=== PATIENT | female | born 1950 | race African-American/Black ===

== ENCOUNTER 2020-09-28 10:19 | Outpatient (REF) | payer MEDICARE, SELFPAY ==
[2020-09-28 10:31] LABS: MANUAL DIFF FLAG NO
[2020-09-28 10:53] LABS: Basophils Percent Auto 0.5 % (0-2); Eosinophils Percent Auto 0.7 % (0-4); Hematocrit 36.5 % (37-47); Hemoglobin 11.4 g/dl (12.0-16.0); Imm Gran Abs Auto 0.01 X10*3/uL (0.00-0.03); Imm Gran Pct Auto 0.2 % (0.0-0.4); Lymphocytes Absolute Auto 1.7 X10*3/uL (1.2-4.9); Lymphocytes Percent Auto 40.3 % (20-40); Mean Corpuscular HGB Conc 31.2 g/dl (31.0-35.0); Mean Corpuscular Hemoglobin 27.9 pg (27.0-33.0); Mean Corpuscular Volume 89.2 fL (80-98); Mean Platelet Volume 10.6 fL (9.4-12.3); Monocytes Absolute Auto 0.5 X10*3/uL (0.1-1.2); Monocytes Percent Auto 11.8 % (2-11); Neutrophils Absolute Auto 1.9 X10*3/uL (2.0-8.3); Neutrophils Percent Auto 46.5 % (45-73); Platelet Count 291 X10*3/uL (160-400); Red Blood Count 4.09 X10*6/uL (4.20-5.50); Red Cell Distribution Width 14.8 % (11.0-16.0); White Blood Count 4.1 X10*3/uL (4.8-10.8)
[2020-09-28 10:57] LABS: Glucose Urine UA NEG (NEG); Leukocyte Esterase Urine NEG (NEG); Nitrite Urine NEG (NEG); Urine Blood NEG (NEG); Urine Ketones NEG (NEG); Urine Protein NEG (NEG-TRACE)
[2020-09-28 10:59] LABS: Appearance Urine CLEAR; Color Urine YELLOW
[2020-09-28 11:27] LABS: Alanine Aminotransferase 14 U/L (0-31); Albumin Level 4.1 g/dL (3.5-5.0); Alkaline Phosphatase 100 U/L (39-117); Anion Gap 13 (12-20); Aspartate Amino Transferase 22 U/L (5-31); Bilirubin Total 0.4 mg/dL (0.0-1.0); Blood Urea Nitrogen 22 mg/dL (9-16); Calcium 9.4 mg/dL (8.4-10.2); Carbon Dioxide 31 mmol/L (22-29); Chloride 103 mmol/L (96-108); Cholesterol 209 mg/dL; Estimated Glomerular Filt Rate > 60; Glucose Fasting 88 mg/dL (60-99); HDL Cholesterol 66 mg/dL; LDL Cholesterol Calculated 131 mg/dl; Sodium 143 mmol/L (135-145); Total Protein 7.2 g/dL (6.5-8.0); Triglycerides 62 mg/dL
[2020-09-28 11:49] LABS: Vitamin D 25-OH Total 40.7 ng/mL (>30)
== END 2020-09-28 10:20 | disposition home or self-care (01) ==
LOC: HO.LNP 10:19
PROVIDERS: Visit Provider Internal Medicine
DX: Z00.00 Encounter for general adult medical examination without abnormal findings (principal); E55.9 Vitamin D deficiency, unspecified; I10 Essential (primary) hypertension
CPT/HCPCS: 80053; 80061; 81003; 82306; 85025

== ENCOUNTER 2021-10-08 10:52 | Outpatient (REF) | payer MEDICARE, SELFPAY ==
[2021-10-08 10:57] LABS: MANUAL DIFF FLAG NO
[2021-10-08 11:07] LABS: Basophils Percent Auto 0.6 % (0-2); Eosinophils Percent Auto 0.4 % (0-4); Hemoglobin 11.7 g/dl (12.0-16.0); Imm Gran Abs Auto 0.01 X10*3/uL (0.00-0.03); Imm Gran Pct Auto 0.2 % (0.0-0.4); Lymphocytes Absolute Auto 1.8 X10*3/uL (1.2-4.9); Lymphocytes Percent Auto 37.4 % (20-40); Mean Corpuscular HGB Conc 30.8 g/dl (31.0-35.0); Mean Corpuscular Hemoglobin 28.4 pg (27.0-33.0); Mean Corpuscular Volume 92.2 fL (80.0-98.0); Mean Platelet Volume 11.2 fL (9.4-12.3); Monocytes Absolute Auto 0.6 X10*3/uL (0.1-1.2); Neutrophils Absolute Auto 2.3 x10*3/uL (2.0-8.3); Neutrophils Percent Auto 48.4 % (45-73); Platelet Count 246 X10*3/uL (160-400); Red Blood Count 4.12 X10*6/uL (4.20-5.50); Red Cell Distribution Width 12.9 % (11.0-16.0); White Blood Count 4.7 X10*3/uL (4.8-10.8)
[2021-10-08 11:14] LABS: Appearance Urine HAZY; Color Urine YELLOW; Glucose Urine UA NEG (NEG); Leukocyte Esterase Urine NEG (NEG); Nitrite Urine NEG (NEG); Specific Gravity - Urine 1.025 (1.005-1.025); Urine Blood TRACE (NEG); Urine Ketones NEG (NEG); Urine Protein NEG (NEG-TRACE)
[2021-10-08 11:20] LABS: Alanine Aminotransferase 15 U/L (0-31); Albumin Level 4.1 g/dL (3.5-5.0); Alkaline Phosphatase 92 U/L (39-117); Anion Gap 13 (12-20); Aspartate Amino Transferase 22 U/L (5-31); Bilirubin Total 0.3 mg/dL (0.0-1.0); Blood Urea Nitrogen 24 mg/dL (9-16); Calcium 9.7 mg/dL (8.4-10.2); Carbon Dioxide 31 mmol/L (22-29); Chloride 104 mmol/L (96-108); Cholesterol 202 mg/dL; Estimated Glomerular Filt Rate > 60; Glucose Fasting 92 mg/dL (60-99); HDL Cholesterol 63 mg/dL; LDL Cholesterol Calculated 122 mg/dl; Potassium 4.2 mmol/L (3.3-5.1); Sodium 144 mmol/L (135-145); Total Protein 7.5 g/dL (6.5-8.0); Triglycerides 87 mg/dL
[2021-10-08 11:27] LABS: Bacteria Urine 1+ /LPF; Mucus Urine 1+ /LPF; RBC Urine 0-2 /HPF (0); Squamous Epithelial Cell Urine 1+ /LPF
== END 2021-10-08 10:53 | disposition home or self-care (01) ==
LOC: HO.LNP 10:52
PROVIDERS: Visit Provider Internal Medicine
DX: Z00.00 Encounter for general adult medical examination without abnormal findings (principal); E55.9 Vitamin D deficiency, unspecified; I10 Essential (primary) hypertension
CPT/HCPCS: 80053; 80061; 81001; 82306; 85025

== ENCOUNTER 2021-12-25 15:39 | Outpatient (REF) | payer MEDICARE, SELFPAY ==
[2021-12-25 16:18] LABS: Blood Urea Nitrogen 23 mg/dL (9-16); Estimated Glomerular Filt Rate 55
== END 2021-12-25 15:40 | disposition home or self-care (01) ==
LOC: HO.LNP 15:39
PROVIDERS: Visit Provider Internal Medicine
DX: R60.0 Localized edema (principal)
CPT/HCPCS: 82565; 84520

== ENCOUNTER → 2022-03-07 11:23 | Outpatient (BNVA) | payer MEDICARE, SELFPAY | PROVIDERS: PCP Internal Medicine; Visit Provider Internal Medicine | DX: R19.4 Change in bowel habit (principal); D64.9 Anemia, unspecified | CPT/HCPCS: 99202 ==

== ENCOUNTER 2022-04-15 09:12 | Outpatient (REF) | payer MEDICARE, SELFPAY ==
[2022-04-15 10:05] LABS: Hematocrit 35.9 % (37.0-47.0); Hemoglobin 11.4 g/dl (12.0-16.0); Mean Corpuscular HGB Conc 31.8 g/dl (31.0-35.0); Mean Corpuscular Hemoglobin 28.3 pg (27.0-33.0); Mean Corpuscular Volume 89.1 fL (80.0-98.0); Mean Platelet Volume 10.1 fL (9.4-12.3); Platelet Count 245 X10*3/uL (160-400); Red Blood Count 4.03 X10*6/uL (4.20-5.50); Red Cell Distribution Width 13.9 % (11.0-16.0); White Blood Count 4.4 X10*3/uL (4.8-10.8)
[2022-04-15 10:35] LABS: Iron 39 mcg/dL (30-160); Percent Iron Saturation 14 % (15-50); Total Iron Binding Capacity 279 mcg/dL (228-428); Unsaturated Iron Binding 240 ug/dL
[2022-04-15 10:59] LABS: Ferritin 47 ng/mL (10-250)
[2022-04-16 15:06] LABS: Immunoglobulin A 242 mg/dL (70-320)
[2022-04-17 05:27] LABS: Transglutaminase IgA <1.0 U/mL
== END 2022-04-15 09:13 | disposition home or self-care (01) ==
LOC: HO.LAB 09:12
PROVIDERS: PCP Internal Medicine; Visit Provider Internal Medicine
DX: D64.9 Anemia, unspecified (principal)
CPT/HCPCS: 36415; 82728; 82784; 83540; 85027; 86364

== ENCOUNTER 2022-04-16 10:04 | Outpatient (REF) | payer MEDICARE, SELFPAY | END 2022-04-16 10:05 | disposition home or self-care (01) | LOC: HO.CT 10:04 | PROVIDERS: PCP Internal Medicine; Visit Provider Internal Medicine | DX: Z13.89 Encounter for screening for other disorder (principal) ==

== ENCOUNTER 2022-04-18 11:16 | Day surgery (SDC) | payer MEDICARE, SELFPAY ==
[2022-04-12 12:13] VITALS: BMI 39.9
--- NOTE | 2022-04-17 12:56 | HO.ANESPROP2 ---
Documented by User: Kasandra Ashley NP 04/17/22 12:58 HPI - Anesthesia Eval Consult details Narrative: 71yo F for Colonoscopy *Multiple allergies* PMFSH Active Problems Active Problems: All Active Problems (Updated 04/12/22 @ 12:19 by Yue Ochoa, RN) Change in bowel habit (Acute) Anemia (Acute) Past Medical History Medical History Arthritis Constipation Hidradenitis suppurativa HTN (hypertension) Hx of cardiac murmur Low back pain Lumbar disc disease Personal history of COVID-19 Stasis dermatitis Family History Family History Mother Diabetes Son Diabetes Brother Diabetes Surgical History Surgical History H/O removal of cyst History of esophagogastroduodenoscopy (EGD) History of excision of pilonidal cyst History of hip replacement Hx of bilateral breast reduction surgery Hx of section Hx of colonoscopy Social History Social History (Updated 04/12/22 @ 12:20 by Yue Ochoa, MAIDA) Household Members: Family Household Members Other:: son Are you a primary care administrative tech to a significant other at home: No Do you presently have visiting nurse or other home services: No Alcohol intake: never Patient Tobacco Use Status: Never used Tobacco Meds Allergies Allergy/AdvReac Type Severity Reaction Status Date / Time aloe [Aloe] Allergy Severe swelling,redness, Verified 04/12/22 12:13 itching, rash latex [Latex] Allergy Severe swelling, Verified 04/12/22 12:13 redness, itching, rash Penicillins Allergy Severe Anaphylaxis Verified 04/12/22 12:13 clindamycin [CLINDAMYCIN] Allergy Intermediate HIVES, Verified 04/12/22 12:22 SWELLING, ITCHY hydrocodone [HYDROCODONE] Allergy Intermediate HIVES, Verified 04/12/22 12:22 SWELLING, ITCHING peanut [Peanut] Allergy Intermediate hives, Verified 04/12/22 12:13 itching,rash Sulfa (Sulfonamide Allergy Intermediate hives,swell Verified 04/12/22 12:22 Antibiotics) ing,itching sulfamethoxazole Allergy Intermediate HIVES, Verified 04/12/22 12:22 [From BACTRIM] SWELLING, ITCHING trimethoprim [From BACTRIM] Allergy Intermediate HIVES, Verified 04/12/22 12:22 SWELLING, ITCHING diltiazem [From Cardizem] Allergy Unknown Verified 04/18/22 12:17 pantoprazole Allergy Unknown Verified 04/18/22 12:15 tramadol Allergy Weakness Verified 04/18/22 12:17 cortisone Allergy Severe Anaphylaxis Uncoded 04/12/22 12:13 tyehsa, wool, rosalba Allergy Intermediate rash, Uncoded 04/12/22 12:13 itching blood presure meds except Allergy Unknown swelling Uncoded 01/07/13 00:00 Diov Home Medications Medication Instructions Recorded Confirmed Last Taken Type doxycycline hyclate 100 mg capsule 100 mg PO BID 03/07/22 04/12/22 Unknown History losartan 100 1 tab PO DAILY 03/07/22 04/12/22 04/18/22 08:30 History mg-hydrochlorothiazide 25 mg tablet Exam Exam Date and Time: April 17, 2022 1256 Height,Weight and Vital Signs: Height 5 ft 2 in Weight 98.883 kg Pertinent Lab Results Pertinent Lab Results: Laboratory Tests 10/08/21 12/25/21 04/15/22 07:15 14:15 09:41 WBC 4.4 L Hgb 11.4 L Hct 35.9 L Plt Count 245 Sodium 144 Potassium 4.2 Chloride 104 Carbon Dioxide 31 H BUN 23 H Creatinine 0.99 Assessment and Plan Assessment Anesthesia Assessment: Chart Reviewed Documented by User: Alberto Boss MD 04/18/22 17:53 [facility] Past Medical History Medical History Arthritis Constipation Hidradenitis suppurativa HTN (hypertension) Hx of cardiac murmur Low back pain Lumbar disc disease Personal history of COVID-19 Stasis dermatitis Family History Family History Mother Diabetes Son Diabetes Brother Diabetes Family history of problems with anesthesia: No Surgical History Surgical History H/O removal of cyst History of esophagogastroduodenoscopy (EGD) History of excision of pilonidal cyst History of hip replacement Hx of bilateral breast reduction surgery Hx of section Hx of colonoscopy History of Problems with Anesthesia: No Social History Social History (Updated 04/12/22 @ 12:20 by Yue Ochoa, MAIDA) Household Members: Family Household Members Other:: son Are you a primary care administrative tech to a significant other at home: No Do you presently have visiting nurse or other home services: No Alcohol intake: never Patient Tobacco Use Status: Never used Tobacco Meds Allergies Allergy/AdvReac Type Severity Reaction Status Date / Time aloe [Aloe] Allergy Severe swelling,redness, Verified 04/12/22 12:13 itching, rash latex [Latex] Allergy Severe swelling, Verified 04/12/22 12:13 redness, itching, rash Penicillins Allergy Severe Anaphylaxis Verified 04/12/22 12:13 clindamycin [CLINDAMYCIN] Allergy Intermediate HIVES, Verified 04/12/22 12:22 SWELLING, ITCHY hydrocodone [HYDROCODONE] Allergy Intermediate HIVES, Verified 04/12/22 12:22 SWELLING, ITCHING peanut [Peanut] Allergy Intermediate hives, Verified 04/12/22 12:13 itching,rash Sulfa (Sulfonamide Allergy Intermediate hives,swell Verified 04/12/22 12:22 Antibiotics) ing,itching sulfamethoxazole Allergy Intermediate HIVES, Verified 04/12/22 12:22 [From BACTRIM] SWELLING, ITCHING trimethoprim [From BACTRIM] Allergy Intermediate HIVES, Verified 04/12/22 12:22 SWELLING, ITCHING diltiazem [From Cardizem] Allergy Unknown Verified 04/18/22 12:17 pantoprazole Allergy Unknown Verified 04/18/22 12:15 tramadol Allergy Weakness Verified 04/18/22 12:17 cortisone Allergy Severe Anaphylaxis Uncoded 04/12/22 12:13 tyesha, wool, rosalba Allergy Intermediate rash, Uncoded 04/12/22 12:13 itching blood presure meds except Allergy Unknown swelling Uncoded 01/07/13 00:00 Diov Home Medications Medication Instructions Recorded Confirmed Last Taken Type doxycycline hyclate 100 mg capsule 100 mg PO BID 03/07/22 04/12/22 Unknown History losartan 100 1 tab PO DAILY 03/07/22 04/12/22 04/18/22 08:30 History mg-hydrochlorothiazide 25 mg tablet Exam Airway Mallampati Class: III TM Dist: >3cm Neck ROM: Full Loose/Missing/Broken Teeth: Yes (Poor dentition overall ) Heart: S1,S2 Lungs: b/l breath sounds Assessment and Plan Assessment Anesthesia Assessment: Anesthesia Plan Discussed Final Anesthetic Review Family History of Problems with Anesthesia: No History of Problems with Anesthesia: No NPO: Yes ASA Class: III Final Preanesthetic Review: Meds/Allgs Chart Reviewed, Consent Obtained/Reviewed and Anes Risks/Benef Reviewed Patient Risk: Intermediate Procedure Risk: Intermediate Anesthetic Plan Anesthetic Plan: MAC: Disposition: Standard PACU
[2022-04-18 12:36] VITALS: BP 150/64; PULSE 90; RESP 17; TEMP 36.8; O2SAT 98
[2022-04-18] MEDS: Lactated Ringers 1,000 ML 100 ML IVCONT (12:38)
--- NOTE | 2022-04-18 13:03 | MHC.SHP ---
Pre-Procedural Eval Section A Date of Service: 04/18/22 Section B Chief Complaint: anemia, change in bowel habits and hx of polyps Medical History: Significant History (H/O removal of cyst History of hip replacement Hx of bilateral breast reduction surgery Hx of section) Allergies: Allergies Allergy/AdvReac Type Severity Reaction Status Date / Time aloe [Aloe] Allergy Severe swelling,redness, Verified 04/12/22 12:13 itching, rash latex [Latex] Allergy Severe swelling, Verified 04/12/22 12:13 redness, itching, rash Penicillins Allergy Severe Anaphylaxis Verified 04/12/22 12:13 clindamycin [CLINDAMYCIN] Allergy Intermediate HIVES, Verified 04/12/22 12:22 SWELLING, ITCHY hydrocodone [HYDROCODONE] Allergy Intermediate HIVES, Verified 04/12/22 12:22 SWELLING, ITCHING peanut [Peanut] Allergy Intermediate hives, Verified 04/12/22 12:13 itching,rash Sulfa (Sulfonamide Allergy Intermediate hives,swell Verified 04/12/22 12:22 Antibiotics) ing,itching sulfamethoxazole Allergy Intermediate HIVES, Verified 04/12/22 12:22 [From BACTRIM] SWELLING, ITCHING trimethoprim [From BACTRIM] Allergy Intermediate HIVES, Verified 04/12/22 12:22 SWELLING, ITCHING diltiazem [From Cardizem] Allergy Unknown Verified 04/18/22 12:17 pantoprazole Allergy Unknown Verified 04/18/22 12:15 tramadol Allergy Weakness Verified 04/18/22 12:17 cortisone Allergy Severe Anaphylaxis Uncoded 04/12/22 12:13 tyesha, wool, rosalba Allergy Intermediate rash, Uncoded 04/12/22 12:13 itching blood presure meds except Allergy Unknown swelling Uncoded 01/07/13 00:00 Diov Review of Systems Review of Systems Comment: 10 point ROS negative Exam Exam Comment: Gen appear: No acute distress, well nourished HEENT: no icterus, no cervical lymphadenopathy Chest: No overt resp distress Abd: soft, nontender, nondistended Psych: Stable affect, answering questions appropriately Neuro: A/Ox3 noted to move all extremities spontaneously Ext: no peripheral edema Plan Diagnosis/Plan: Unchanged I have reviewed the history and physical and performed a pertinent physical examination on my patient. No changes have occurred unless specified.
--- NOTE | 2022-04-18 13:05 | P.OP_ITS ---
Operative Note Operative Note Date of Service: 04/18/22 Narrative: Procedure: Colonoscopy Indication: Personal history of polyps Anemia Endoscopist: Ros Costello MD Anesthesia Provider: Charo Castañeda CRNA Anesthesia type: MAC Instrument: Olympus [id number]-H190L Consent: Indication, risks vs benefits, and alternatives were discussed with the patient who gave written informed consent to proceed. EKG, pulse, pulse oximetry and blood pressure were monitored throughout the procedure. Please see anesthesia flowsheet. Procedure: The patient was brought to the procedure room and placed in the left lateral decubitus position. IV medications were administered by the anesthesia provider in attendance. A digital rectal exam was performed which was abnormal due to finding of hemorrhoids. The colonoscope was then inserted through the anus and advanced through the colon to the cecum at 75 cm. Mucosa was carefully examined under high definition white light as the instrument was slowly withdrawn in a retrograde panoramic fashion. Retroflexion was performed in rectum. The procedure was not difficult. There were no immediate obvious complications. The quality of the prep was BBPS: 3+3+3 = excellent Withdrawal time 12 minutes. Limitations: No limitations. Findings: Mucosa: Normal to cecum. Protruding lesions: * Medium external hemorrhoids without stigmata of recent bleeding. Excavated lesions: * Moderate-severe diverticulosis of whole colon. Impression: 1. Normal colon mucosa 2. Diverticulosis 3. External hemorrhoids Recommendations: - Repeat colonoscopy may be considered in 10 years if still in good health to continue CRC screening. - Changes in bowel habits likely due to diverticular burden. - Will refer to Hematology for non-iron deficiency anemia.
[2022-04-18 13:43] VITALS: BP 124/60; PULSE 91; RESP 16; TEMP 37.1; O2SAT 100
[2022-04-18 13:58] VITALS: BP 142/68; PULSE 90; RESP 16; O2SAT 98
[2022-04-18 14:13] VITALS: BP 142/69; PULSE 84; RESP 16; TEMP 37.1; O2SAT 98
== END 2022-04-18 14:52 | disposition home or self-care (01) ==
PROVIDERS: PCP Internal Medicine; Visit Provider Internal Medicine
PROC: 0DJD8ZZ Inspection of Lower Intestinal Tract, Via Natural or Artificial Opening Endoscopic (ICD-10-PCS; CPT 45378; principal; 2022-04-18 12:30)
DX: D64.9 Anemia, unspecified (principal); R19.4 Change in bowel habit; Z86.010 Personal history of colon polyps; K57.30 Diverticulosis of large intestine without perforation or abscess without bleeding; Z83.71 Family history of colonic polyps; K64.4 Residual hemorrhoidal skin tags; I10 Essential (primary) hypertension; E66.9 Obesity, unspecified; Z68.41 Body mass index [BMI] 40.0-44.9, adult; Z88.0 Allergy status to penicillin; Z79.899 Other long term (current) drug therapy; Z88.1 Allergy status to other antibiotic agents; Z88.2 Allergy status to sulfonamides; Z88.8 Allergy status to other drugs, medicaments and biological substances; Z91.040 Latex allergy status; Z98.890 Other specified postprocedural states
CPT/HCPCS: 45378

== ENCOUNTER 2022-04-26 08:19 | Outpatient (REF) | payer MEDICARE, SELFPAY ==
--- NOTE | ~2022-04-26 | CT_ITS ---
EXAMINATION: CT ABDOMEN AND PELVIS WITH CONTRAST CLINICAL INFORMATION: Change in bowel habits. COMPARISON: None TECHNIQUE: Multidetector volumetric images were obtained from the superior aspect of the liver through the pubic symphysis following administration 85 mL of Omnipaque 350 intravenous contrast. Sagittal and coronal reformatted images were obtained on the technologist's workstation. Oral contrast: No This CT examination was performed using dose optimization techniques as appropriate, variously including the following: *Automated exposure control *Adjustment of mA and/or kV according to patient size (this includes techniques or standardized protocols for targeted exams where dose is matched to indication/reason for exam; i.e. extremities or head) *Use of iterative reconstruction technique DLP: 678 mGy-cm FINDINGS: LUNG BASES: There is left lower lobe atelectasis. LIVER, GALLBLADDER, AND BILIARY TREE: The liver is slightly enlarged in size measuring 19 cm. It has normal shape, contour and attenuation. There is a 1.2 cm hypodensity in the left hepatic lobe, probable cyst or hemangioma. There are punctate 1 mm hypodensities in the right hepatic lobe close to the diaphragm. The gallbladder is unremarkable with no evidence of radiopaque gallstones, gallbladder wall thickening, or obvious pericholecystic inflammatory changes. PANCREAS: Unremarkable. SPLEEN: Unremarkable. ADRENAL GLANDS: Unremarkable. KIDNEYS AND URETERS: The kidneys are normal in size, shape, and attenuation. No hydronephrosis, hydroureter, or calculi are seen. No perinephric stranding. BLADDER: Unremarkable. GASTROINTESTINAL TRACT: There is oral contrast opacifying the colon without any obstruction. There are scattered diverticula and stool seen throughout the colon with a focal area of mural thickening involving the sigmoid colon but no pericolic fat stranding. Findings are suspicious for an underlying lesion. The lack of acute pain eliminates typical diverticulitis. ABDOMINAL WALL: There are surgical chidi at the umbilicus, likely from previous hernia repair or intervention. LYMPH NODES: Normal. VASCULAR: Unremarkable. PELVIC VISCERA: The uterus is midline. No adnexal mass or fluid is seen. OSSEOUS STRUCTURES: There is moderate ventral spondylosis throughout the lumbar spine. No aggressive lytic or sclerotic process is seen. There are bilateral hip prostheses in satisfactory alignment. There are moderate enthesophytes along the anterior superior iliac spine and myositis ossificans. CT/CT abdomen pelvis w IV con IMPRESSION: Colonic diverticulosis without diverticulitis. There is a focal area of mural thickening involving the sigmoid colon but no pericolic fat stranding. Findings are suspicious for an underlying lesion. The lack of acute pain eliminates typical diverticulitis. Fleischner guidelines were followed.
[2022-04-26] MEDS: iohexoL 350 MG/ML 100 ML INFUS..BTL IV (10:56)
[2022-04-26] MEDS: Barium Sulfate Oral (Berry) 450 ML ORAL.SUSP 900 ML PO (10:57)
[2022-04-29 10:21] LABS: Creatinine POC 0.7 mg/dL (0.5-1.4); GFR POC > 60
== END 2022-04-26 08:20 | disposition home or self-care (01) ==
LOC: HO.CT 08:19
PROVIDERS: Visit Provider Internal Medicine
DX: R19.4 Change in bowel habit (principal)
CPT/HCPCS: 74177; 82565; Q9967

== ENCOUNTER → 2022-05-21 07:53 | Outpatient (BNVA) | payer MEDICARE, SELFPAY | PROVIDERS: PCP Internal Medicine; Visit Provider Internal Medicine | DX: D64.9 Anemia, unspecified (principal); R19.4 Change in bowel habit | CPT/HCPCS: 99212 ==

== ENCOUNTER 2022-12-20 11:22 | Outpatient (REF) | payer MEDICARE, SELFPAY ==
[2022-12-20 11:49] LABS: Basophils Percent Auto 0.6 % (0-2); Eosinophils Percent Auto 0.6 % (0-4); Hemoglobin 11.1 g/dl (12.0-16.0); Imm Gran Abs Auto 0.01 X10*3/uL (0.00-0.03); Imm Gran Pct Auto 0.2 % (0.0-0.4); Lymphocytes Absolute Auto 1.7 X10*3/uL (1.2-4.9); Lymphocytes Percent Auto 34.3 % (20-40); MANUAL DIFF FLAG NO; Mean Corpuscular Hemoglobin 27.3 pg (27.0-33.0); Mean Corpuscular Volume 90.9 fL (80.0-98.0); Mean Platelet Volume 10.8 fL (9.4-12.3); Monocytes Absolute Auto 0.6 X10*3/uL (0.1-1.2); Monocytes Percent Auto 11.5 % (2-11); Neutrophils Absolute Auto 2.6 x10*3/uL (2.0-8.3); Neutrophils Percent Auto 52.8 % (45-73); Platelet Count 287 X10*3/uL (160-400); Red Blood Count 4.07 X10*6/uL (4.20-5.50); Red Cell Distribution Width 13.9 % (11.0-16.0)
[2022-12-20 11:56] LABS: Appearance Urine Hazy; Color Urine Yellow; Glucose Urine UA Negative (Negative); Leukocyte Esterase Urine Negative (Negative); Nitrite Urine Negative (Negative); PH 5.5 (5.0-9.0); Specific Gravity - Urine 1.025 (1.005-1.025); UMIC TRIGGER UACC YES; Urine Blood Trace (Negative); Urine Ketones Negative (Negative); Urine Protein Negative (Neg-Trace)
[2022-12-20 12:06] LABS: Anion Gap 12 (12-20)
[2022-12-20 12:11] LABS: Alanine Aminotransferase 12 U/L (0-31); Albumin Level 4.1 g/dL (3.5-5.0); Alkaline Phosphatase 95 U/L (39-117); Aspartate Amino Transferase 18 U/L (5-31); Bilirubin Total 0.5 mg/dL (0.0-1.0); Blood Urea Nitrogen 17 mg/dL (9-16); Carbon Dioxide 30 mmol/L (22-29); Chloride 104 mmol/L (96-108); Cholesterol 199 mg/dL; Estimated Glomerular Filt Rate > 60; HDL Cholesterol 62 mg/dL; LDL Cholesterol Calculated 119 mg/dl; Potassium 3.8 mmol/L (3.3-5.1); Sodium 142 mmol/L (135-145); Total Protein 7.9 g/dL (6.5-8.0); Triglycerides 92 mg/dL
[2022-12-20 12:31] LABS: Vitamin D 25-OH Total 33.6 ng/mL (>30)
[2022-12-20 12:33] LABS: Glucose Fasting 86 mg/dL (60-99)
[2022-12-20 14:23] LABS: Bacteria Urine None Seen (None Seen); Hyaline Casts Urine 0-2 /LPF (0-2); UACC Culture Trigger YES
== END 2022-12-20 11:23 | disposition home or self-care (01) ==
LOC: HO.LNP 11:22
PROVIDERS: Visit Provider Internal Medicine
DX: Z00.00 Encounter for general adult medical examination without abnormal findings (principal); I10 Essential (primary) hypertension; E55.9 Vitamin D deficiency, unspecified; R82.90 Unspecified abnormal findings in urine
CPT/HCPCS: 80053; 80061; 81001; 82306; 85025; 87086

== ENCOUNTER 2022-12-31 10:53 | Outpatient (REF) | payer MEDICARE, SELFPAY ==
[2022-12-31 11:09] LABS: Appearance Urine Clear; Color Urine Yellow; Glucose Urine UA Negative (Negative); Leukocyte Esterase Urine Trace (Negative); Nitrite Urine Negative (Negative); PH 5.5 (5.0-9.0); UMIC TRIGGER UACC YES; Urine Blood Negative (Negative); Urine Ketones Negative (Negative); Urine Protein Negative (Neg-Trace)
[2022-12-31 11:30] LABS: Bacteria Urine None Seen (None Seen); Hyaline Casts Urine 0-2 /LPF (0-2); WBC Urine 0-5 /HPF (0-5)
== END 2022-12-31 10:54 | disposition home or self-care (01) ==
LOC: HO.LNP 10:53
PROVIDERS: Visit Provider Internal Medicine
DX: R31.9 Hematuria, unspecified (principal); I10 Essential (primary) hypertension
CPT/HCPCS: 81001

== ENCOUNTER 2023-07-31 11:12 | Outpatient (REF) | payer MEDICARE, MEDICAID, SELFPAY ==
--- NOTE | ~2023-07-31 | XR_ITS ---
EXAMINATION: XR FINGER, RIGHT CLINICAL INFORMATION: Closed displaced fracture. COMPARISON: None available. TECHNIQUE: 4 of the right small finger. FINDINGS: Examination demonstrates mild to moderate osteoarthritis involving all of the interphalangeal joints and MCP joints as well as the first carpal-metacarpal joint. Regarding the fifth digit in particular, degenerative changes are present as well. The fifth DIP joint is held in mild flexion on all views. No acute fracture or dislocation is seen. No lytic or sclerotic bony lesion is identified. XR/XR finger RT min 2V IMPRESSION: Findings as above.
== END 2023-07-31 11:13 | disposition home or self-care (01) ==
LOC: HO.XRAY 11:12
PROVIDERS: PCP Internal Medicine; Visit Provider Internal Medicine
DX: S62.616D Displaced fracture of proximal phalanx of right little finger, subsequent encounter for fracture with routine healing (principal)
CPT/HCPCS: 73140

== ENCOUNTER 2023-08-14 11:05 | Outpatient (REF) | payer MEDICARE, MEDICAID, SELFPAY ==
--- NOTE | ~2023-08-14 | US_ITS ---
EXAMINATION: US THYROID CLINICAL INFORMATION: Nontoxic single thyroid nodule. COMPARISON: None available. TECHNIQUE: Linear transducer grayscale and color Doppler examination with attention to the region of the thyroid. FINDINGS: SIZE: Measurements of the thyroid lobes and nodules are given in sagittal, anteroposterior and transverse dimensions respectively. Right Thyroid Lobe: 5.4 x 2.1 x 2.1 cm, volume 12.1 mL. Parenchyma: The gland echotexture is mildly heterogeneous. Thyroid vascularity is normal. Left Thyroid Lobe: 5.1 x 2.0 x 2.3 cm, volume 12.4 mL. Parenchyma: The gland echotexture is mildly heterogeneous. Thyroid vascularity is normal. Isthmus: 0.4 cm in maximum AP dimension. Estimated total number of nodules greater than or equal to 1 cm: 2. Armored Car Driver nodules are described as follows: 1. Location: Right upper pole. Size: 0.4 x 0.2 x 0.4 cm, volume 0.016 mL. Nodule characteristics: Composition: Solid (2). Echogenicity: Isoechoic (1). Shape: Not taller than wide (0). Margins: Ill-defined (0). Echogenic Foci: None (0). ACR TI-RADS total points: 3 ACR TI-RADS category: 3 2. Location: Right upper pole. Size: 0.5 x 0.3 x 0.5 cm, volume 0.033 mL. Nodule characteristics: Composition: Cystic(0). ACR TI-RADS total points: 0 ACR TI-RADS category: 1 3. Location: Right mid/lower pole. Size: 1.5 x 1.5 x 1.4 cm, volume 1.7 mL. Nodule characteristics: Composition: Solid (2). Echogenicity: Isoechoic (1). Shape: Taller than wide (3). Margins: Ill-defined (0). Echogenic Foci: None (0). ACR TI-RADS total points: 6 ACR TI-RADS category: 4 4. Location: Right lower pole. Size: 0.6 x 0.4 x 0.5 cm, volume 0.061 mL. Nodule characteristics: Composition: Solid (2). Echogenicity: Isoechoic (1). Shape: Not taller than wide (0). Margins: Smooth (0). Echogenic Foci: None (0). ACR TI-RADS total points: 3 ACR TI-RADS category: 3 5. Location: Left mid pole. Size: 1.0 x 0.6 x 0.8 cm, volume 0.24 mL. Nodule characteristics: Composition: Solid (2). Echogenicity: Isoechoic (1). Shape: Not taller than wide (0). Margins: Smooth (0). Echogenic Foci: None (0). ACR TI-RADS total points: 3 ACR TI-RADS category: 3 NODES: No lymphadenopathy is seen in the tissue surrounding the thyroid gland. US/US thyroid IMPRESSION: A 1.5 cm right mid lower TR 4 thyroid nodule meets criteria for biopsy. Fine-needle aspiration recommended. This study was presented today August 18, 2023 for interpretation. PSA staff will provide results to referring provider at this time. ACR TI-RADS RECOMMENDATION REFERENCE: Ultrasound-guided fine-needle aspiration, followup ultrasound, no further follow up. * TR1 (0 point) and TR2 (2 points): No FNA or follow up. * TR3 (3 points): FNA if more than or equal to 2.5 cm in maximum dimension, followup ultrasound in 1, 3 and 5 years if 1.5 to 2.4 cm in maximum dimension. * TR4 (4-6 points): FNA if more than or equal to 1.5 cm in maximum dimension, followup ultrasound in 1, 2, 3 and 5 years if 1 to 1.4 cm in maximum dimension. * TR5 (more than or equal to 7 points): FNA if more than or equal to 1 cm in maximum dimension, followup ultrasound every year for 5 years if 0.5 to 0.9 cm in maximum dimension. * TR3, TR4 or TR5 nodules that are below the size threshold for followup receive no follow up.
== END 2023-08-14 11:06 | disposition home or self-care (01) ==
LOC: HO.US 11:05
PROVIDERS: PCP Internal Medicine; Visit Provider Internal Medicine
DX: E04.1 Nontoxic single thyroid nodule (principal)
CPT/HCPCS: 76536

== ENCOUNTER 2023-09-22 12:49 | Outpatient (REF) | payer MEDICARE, MEDICAID, SELFPAY ==
--- NOTE | ~2023-09-22 | US_ITS ---
Ultrasound-guided thyroid nodule fine needle aspiration Indication: Right lobe thyroid nodule Procedure: Informed consent was obtained from the patient prior to the procedure. During this process, the procedure and potential alternatives were explained, along with the intended outcome and benefits. The risks of the procedure, as well as the risks of not doing the procedure, were discussed. The patient was given the opportunity to ask questions regarding the procedure and appeared competent to make medical decisions. A signed consent form which documents this discussion was placed in the medical record. A timeout was performed in the room. The patient was placed in a supine position with the neck extended. The right side of the neck and chest was prepped and draped in routine sterile fashion. 1% lidocaine was used as anesthetic. Under real-time ultrasound guidance, a 25-gauge needle was placed into the nodule and aspiration was performed. A total of 3 aspirations were performed. The specimens were placed in CytoLyt and and the Affirma bottle. Postprocedure images showed no hematoma. A Band-Aid was applied to the access site. The patient tolerated the procedure well with no immediate complications. Permanent ultrasound images were archived to the procedure. US/US guided fine needle asp Impression: Right thyroid nodule fine-needle aspiration This procedure was performed by Nahid Maynard PA-C, and directly supervised by Dr. Brown
[2023-09-22] MEDS: Lidocaine HCl 1 % 20 ML VIAL 5 ML SUBCUT (14:21)
== END 2023-09-22 12:50 | disposition home or self-care (01) ==
LOC: HO.US 12:49
PROVIDERS: PCP Internal Medicine; Visit Provider Internal Medicine
DX: E04.1 Nontoxic single thyroid nodule (principal)
CPT/HCPCS: 10005; 88173; 88305

== ENCOUNTER → 2023-09-22 12:53 | Outpatient (BNV) | payer MEDICARE, MEDICAID, SELFPAY | PROVIDERS: PCP Internal Medicine; Visit Provider Physician Assistant Surgical | DX: E04.1 Nontoxic single thyroid nodule (principal) | CPT/HCPCS: 10005 ==

== ENCOUNTER 2023-12-22 10:30 | Outpatient (REF) | payer MEDICARE, MEDICAID, SELFPAY ==
[2023-12-22 10:35] LABS: MANUAL DIFF FLAG NO
[2023-12-22 10:58] LABS: Basophils Percent Auto 0.7 % (0-2); Eosinophils Percent Auto 0.7 % (0-4); Hematocrit 36.4 % (37.0-47.0); Hemoglobin 11.4 g/dl (12.0-16.0); Imm Gran Abs Auto 0.01 X10*3/uL (0.00-0.03); Imm Gran Pct Auto 0.2 % (0.0-0.4); Lymphocytes Absolute Auto 1.5 X10*3/uL (1.2-4.9); Lymphocytes Percent Auto 35.1 % (20-40); Mean Corpuscular HGB Conc 31.3 g/dl (31.0-35.0); Mean Corpuscular Hemoglobin 28.4 pg (27.0-33.0); Mean Corpuscular Volume 90.5 fL (80.0-98.0); Mean Platelet Volume 10.9 fL (9.4-12.3); Monocytes Absolute Auto 0.5 X10*3/uL (0.1-1.2); Monocytes Percent Auto 12.1 % (2-11); Neutrophils Absolute Auto 2.1 x10*3/uL (2.0-8.3); Neutrophils Percent Auto 51.2 % (45-73); Platelet Count 152 X10*3/uL (160-400); Red Blood Count 4.02 X10*6/uL (4.20-5.50); Red Cell Distribution Width 13.8 % (11.0-16.0); White Blood Count 4.1 X10*3/uL (4.8-10.8)
[2023-12-22 10:59] LABS: Appearance Urine Clear; Color Urine Yellow; Glucose Urine UA Negative (Negative); Leukocyte Esterase Urine Trace (Negative); Nitrite Urine Negative (Negative); Specific Gravity - Urine 1.015 (1.005-1.025); UMIC TRIGGER UACC YES; Urine Blood Negative (Negative); Urine Ketones Negative (Negative); Urine Protein Negative (Neg-Trace)
[2023-12-22 11:09] LABS: Bacteria Urine None Seen (None Seen); Hyaline Casts Urine 0-2 /LPF (0-2); RBC Urine 0-2 /HPF (0-2); Squamous Epithelial Cell Urine 0-2 /HPF (0-2); WBC Urine 0-5 /HPF (0-5)
[2023-12-22 11:17] LABS: Alanine Aminotransferase 11 U/L (0-31); Albumin Level 4.1 g/dL (3.5-5.0); Alkaline Phosphatase 90 U/L (39-117); Anion Gap 14 (12-20); Aspartate Amino Transferase 21 U/L (5-31); Bilirubin Total 0.6 mg/dL (0.0-1.0); Blood Urea Nitrogen 19 mg/dL (9-16); Calcium 9.5 mg/dL (8.4-10.2); Carbon Dioxide 29 mmol/L (22-29); Chloride 105 mmol/L (96-108); Cholesterol 194 mg/dL (<200); Estimated Glomerular Filt Rate > 60; Glucose Fasting 84 mg/dL (60-99); HDL Cholesterol 70 mg/dL (>40); Iron 52 mcg/dL (30-160); LDL Cholesterol Calculated 111 mg/dL (<100); Percent Iron Saturation 22 % (15-50); Potassium 4.1 mmol/L (3.3-5.1); Sodium 144 mmol/L (135-145); Total Iron Binding Capacity 238 mcg/dL (228-428); Total Protein 7.8 g/dL (6.5-8.0); Triglycerides 66 mg/dL (<150); Unsaturated Iron Binding 186 ug/dL
[2023-12-22 11:33] LABS: Vitamin D 25-OH Total 28.9 ng/mL (>30)
== END 2023-12-22 10:31 | disposition home or self-care (01) ==
LOC: HO.LNP 10:30
PROVIDERS: Visit Provider Internal Medicine
DX: Z00.00 Encounter for general adult medical examination without abnormal findings (principal); I10 Essential (primary) hypertension; E55.9 Vitamin D deficiency, unspecified
CPT/HCPCS: 80053; 80061; 81001; 82306; 83540; 85025

== ENCOUNTER 2024-01-27 10:44 | Outpatient (REF) | payer MEDICARE, MEDICAID, SELFPAY ==
[2024-01-27 10:50] LABS: MANUAL DIFF FLAG NO
[2024-01-27 11:05] LABS: Basophils Percent Auto 0.8 % (0-2); Eosinophils Percent Auto 0.8 % (0-4); Hematocrit 37.6 % (37.0-47.0); Hemoglobin 11.8 g/dl (12.0-16.0); Imm Gran Abs Auto 0.01 X10*3/uL (0.00-0.03); Imm Gran Pct Auto 0.3 % (0.0-0.4); Lymphocytes Absolute Auto 1.5 X10*3/uL (1.2-4.9); Lymphocytes Percent Auto 38.4 % (20-40); Mean Corpuscular HGB Conc 31.4 g/dl (31.0-35.0); Mean Corpuscular Hemoglobin 28.3 pg (27.0-33.0); Mean Corpuscular Volume 90.2 fL (80.0-98.0); Mean Platelet Volume 10.7 fL (9.4-12.3); Monocytes Absolute Auto 0.5 X10*3/uL (0.1-1.2); Neutrophils Absolute Auto 1.9 x10*3/uL (2.0-8.3); Neutrophils Percent Auto 47.7 % (45-73); Platelet Count 178 X10*3/uL (160-400); Red Blood Count 4.17 X10*6/uL (4.20-5.50); Red Cell Distribution Width 13.5 % (11.0-16.0); White Blood Count 3.9 X10*3/uL (4.8-10.8)
== END 2024-01-27 10:45 | disposition home or self-care (01) ==
LOC: HO.LNP 10:44
PROVIDERS: Visit Provider Internal Medicine
DX: D69.6 Thrombocytopenia, unspecified (principal)
CPT/HCPCS: 85025

== ENCOUNTER 2024-02-23 09:59 | Outpatient (REF) | payer MEDICARE, MEDICAID, SELFPAY ==
--- NOTE | ~2024-02-23 | MM_ITS ---
EXAMINATION: MM SCREENING DIGITAL BREAST TOMOSYNTHESIS, BILATERAL CLINICAL INFORMATION: Screening. Asymptomatic. COMPARISON: Mammography: Comparison is made with available priors TECHNIQUE: Digital breast mammography with tomosynthesis is performed in both the craniocaudal and mediolateral oblique views along with computer-aided detection (CAD). FINDINGS: There are scattered areas of fibroglandular density (ACR BI-RADS breast composition Category b). Bilateral focal asymmetries are stable dating back to 2011. There are no significant masses, abnormal calcifications, or other abnormalities. MM/MM tomosynthesis screening BI IMPRESSION: No mammographic evidence of malignancy. ASSESSMENT: BI-RADS BI-RADS 2 - Benign Findings RECOMMENDATION: Routine annual mammography screening. 1 year F/U This examination should not preclude the clinical evaluation of a suspicious palpable abnormality. This patient's information was entered into a reminder system with a target due date for their next mammogram. Electronically signed by: Serenity Garza DO 03/04/2024 01:43 PM EDT
== END 2024-02-23 10:00 | disposition home or self-care (01) ==
LOC: HO.MAMMO 09:59
PROVIDERS: PCP Internal Medicine; Visit Provider Internal Medicine
DX: Z12.31 Encounter for screening mammogram for malignant neoplasm of breast (principal)
CPT/HCPCS: 77063; 77067

== ENCOUNTER → 2024-02-23 10:30 | Outpatient (BNV) | payer MEDICARE, MEDICAID, SELFPAY | PROVIDERS: PCP Internal Medicine; Visit Provider Internal Medicine | DX: Z12.31 Encounter for screening mammogram for malignant neoplasm of breast (principal) | CPT/HCPCS: 77063; 77067 ==

== ENCOUNTER 2024-12-23 10:40 | Outpatient (REF) | payer MEDICARE, MEDICAID, SELFPAY ==
[2024-12-23 10:44] LABS: MANUAL DIFF FLAG NO
[2024-12-23 11:14] LABS: Hematocrit 37.6 % (37.0-47.0); Hemoglobin 11.9 g/dl (12.0-16.0); Imm Gran Abs Auto 0.01 X10*3/uL (0.00-0.03); Imm Gran Pct Auto 0.2 % (0.0-0.4); Lymphocytes Absolute Auto 1.5 X10*3/uL (1.2-4.9); Mean Corpuscular HGB Conc 31.6 g/dl (31.0-35.0); Mean Corpuscular Hemoglobin 28.5 pg (27.0-33.0); Mean Corpuscular Volume 90.2 fL (80.0-98.0); NRBC Abs Auto 0.000 X10*3/uL (0.0-0.012); NRBC Pct Auto 0.0 /100WBC (0.0-0.2); Platelet Count 208 X10*3/uL (160-400); Red Blood Count 4.17 X10*6/uL (4.20-5.50); White Blood Count 4.3 X10*3/uL (4.8-10.8)
[2024-12-23 11:15] LABS: Appearance Urine Clear; Glucose Urine UA Negative (Negative); PH 7.5 (5.0-9.0); Specific Gravity - Urine 1.010 (1.005-1.025); UMIC TRIGGER UACC YES
--- OUTSIDE RECORDS SUMMARY | 2024-12-23 11:32 | XMS_ITS | Patient Health Record ---
Author Organization Yuriy Dorado MD Address [address] [place], [place] [id number] Care Team Providers Care Marine Biologist Name Role Phone Yuriy Dorado Primary Care Provider Allergies Allergen (clinical drug ingredient) Drug/Non Drug Allergy documented on EMR Reaction Allergy Type Onset Date Status morphine Morphine was not able to talk Drug Allergy Active tramadol Tramadol unconscious Drug Allergy Activ e cortisone Cortisone rash and itching Drug Allergy Active 12 Hour Nasal [place] Unknown Drug Allergy Active aloe (uncoded) rash and swelling Allergy Active Penicillin rash and trouble breatihing Drug Allergy Active Results Component Value Reference Range Notes Complete Blood Count Auto Di ff Reviewed date:01/27/2024 12:06:34 PM Interpretation: Performing Lab:, [address] [place] [phone] Notes/Report: White Blood Count 3.9 4.8-10.8 X10*3/uL Red Blood Count 4.17 4.20-5.50 X10*6/uL Hemoglobin 11.8 12.0-16.0 g/dl Hematocrit 37.6 37.0-47.0 % Mean Corpuscular Volume 90.2 80.0-98.0 fL Mean Corpuscular Hemoglobin 28.3 27.0-33.0 pg Mean Corpuscular HGB Conc 31.4 31.0-35.0 g/dl Red Cell Distribution Width 13.5 11.0-16.0 % Platelet Count 178 160-400 X10*3/uL Mean Platelet Volume 10.7 9.4-12.3 fL Neutrophils Percent Auto 47.7 45-73 % Imm Gran Pct Auto 0.3 0.0-0.4 % Lymphocytes Percent Auto 38.4 20-40 % Monocytes Percent Auto 12.0 2-11 % Eosinophils Percent Auto 0.8 0-4 % Basophils Percent Auto 0.8 0-2 % NRBC Pct Auto 0.0 0.0-0.2 /100WBC Neutrophils Absolute Auto 1.9 2.0-8.3 x10*3/u L Imm Gran Abs Auto 0.01 0.00-0.03 X10*3/uL Lymphocytes Absolute Auto 1.5 1.2-4.9 X10*3/u L Monocytes Absolute Auto 0.5 0.1-1.2 X10*3/uL Eosinophils Absolute Auto 0.0 0.0-0.4 X10*3/u L Basophils Absolute Auto 0.0 0.0-0.2 X10*3/uL NRBC Abs Auto 0.000 0.0-0.012 X10*3/uL MM tomosynthesis screening B I Reviewed date:03/04/2024 04:21:29 PM Interpretation: Performing Lab: Notes/Report: [address] [place] [address] Mammography Report Signed Patient: Saima Lucia MR#: [id number] : 1950 Acct:[id number] Age/Sex: 73 / F ADM Date: 02/23/24 Loc: HO.MAMMO Attending Dr: Yuriy Dorado MD Ordering Physician: Yuriy Dorado MD Results: 2Be nign Findings Date of Service: 02/23/24 Follow Up: 1 Year From Orig ina Mammogram Procedure(s): MM tomosynthesis screening BI Accession Number(s): [id number] cc: Yuriy Dorado MD EXAMINATION: MM SCREENING DIGITAL BREAST TOMOSYNTHESIS, BILATERAL CLINICAL INFORMATION: Screening. Asymptomatic. COMPARISON: Mammography: Comparison is made with available priors TECHNIQUE: Digital breast mammography with tomosynthesis is performed in both the craniocaudal and mediolateral oblique views along with computer-aided detection (CAD). FINDINGS: There are scattered areas of fibroglandular density (ACR BI-RADS breast composition Category b). Bilateral focal asymmetries are stable dating back to 2011. There are no significant masses, abnormal calcifications, or other abnormalities. MM/MM tomosynthesis screening BI IMPRESSION: No mammographic evidence of malignancy. ASSESSMENT: BI-RADS BI-RADS 2 - Benign Findings RECOMMENDATION: Routine annual mammography screening. 1 year F/U This examination should not preclude the clinical evaluation of a suspicious palpable abnormality. This patient's information was entered into a reminder system with a target due date for their next mammogram. Electronically signed by: Serenity Garza DO 03/04/2024 01:43 PM EDT RP Workstation: [email or web address] Dictated By: Serenity Garza DO Signed By: <Electronically signed by Serenity Garza DO in OV> 03/04/24 1343 DD/ 1005 TD/TT: 02/23/24 1040 Distribution Accounting Clerk: [facility] [address] [place] [address] Mammography Report Signed Patient: Tha Lucia MR#: [id number] : 1950 Acct:[id number] Age/Sex: 73 / F ADM Date: 02/23/24 Loc: HO.MAMMO Attending Dr: Yuriy Dorado MD Ordering Physician: Yuriy Dorado MD Results: 2Be nign Findings Date of Service: Follow Up: 1 Year From Orig ina Mammogram Procedure(s): MM sreekanth osynthesis screening BI Accession Number(s): [id number] cc: Yuriy Dorado MD EXAMINATION: MM SCREENING DIGITAL BREAST TOMOSYNTHESIS, BILATERAL CLINICAL INFORMATION: Screening. Asymptomatic. COMPARISON: Mammography: Compari son is made with available priors TECHNIQUE: Digital breast mammo graphy with tomosynthesis is performed in both the craniocaudal and med iolateral oblique views along with computer-aided detection (CAD). FINDINGS: There are scattered areas of fibroglandular density (ACR BI-RADS breast composition Category b). Bilateral focal asym metries are stable dating back to 2011. There are no signifi cant masses, abnormal calcifications, or other abnormalities. M M/MM tomosynthesis screening BI IMPRESSION: No mammographic evid ence of malignancy. ASSESSMENT: BI-RADS BI-RADS 2 - Benign Findings RECOMMENDATION: Routine annual mammo graphy screening. 1 year F/U This examination bayron uld not preclude the clinical evaluation of a suspicious palpable abnormality. This patient's infor mation was entered into a reminder system with a target due date for their next mammogram. Electronically violeta d by: Serenity Garza DO 03/04/2024 01:43 PM EDT RP Dictated By: Serenity Marquez i, DO Signed By: <Electron ically signed by Serenity Garza DO in OV> 03/04/24 1343 DD/ 1005 TD/TT: 02/23/24 1040 Distribution Accounting Clerk: Complete Blood Count Auto Di ff (Not yet reviewed by provider) Interpretation: Performing Lab:, [address] [place] [phone] Notes/Report: White Blood Count 4.3 4.8-10.8 X10*3/uL [...] X10*3/uL NRBC Abs Auto 0.000 0.0-0.012 X10*3/uL UA ClnCatch+Micro w/rflx Cul t (Not yet reviewed by provider) Interpretation: Performing Lab:, [address] [place] [phone] Notes/Report: [id number] Urine, Clean Catch Color Urine Yellow Appearance Urine Clear PH 7.5 5.0-9.0 Glucose Urine UA Negative Negative mg/dL Urine Blood Negative Negative Specific [place] - Urine 1.010 1.005-1.025 Urine Protein Negative Neg-Trace mg/dL Urine Ketones Negative Negative mg/dL Nitrite Urine Negative Negative Leukocyte Esterase Urine Trace Negative RBC Urine 0-2 0-2 /HPF WBC Urine 0-5 0-5 /HPF Squamous Epithelial Cell Urine 3-5 0-2 /HPF Bacteria Urine None Seen None Seen Hyaline Casts Urine 0-2 0-2 /LPF Reason For Referral Reason ADHESIVE CAPSULITIS OF RIGHT SHOULDER Diagnosis 1 Adhesive capsulitis of right shoulder (M75.01) Referral Organization Yuriy Dorado MD Referring Provider First Name Yuriy Referring Provider Last Name Estrada Referring Provider Speciality Internal M edicine Referred Provider ADRIENNE WRIGHT Referred Provider Specialty Orthopedic S urgery General Notes Maki Mitchell 02/26/2024 10:17:30 AM EDT > APPT SCHEDULED WITH BITA JO , 11:15AM, PATIENT INFORMED, Maki Mitchell 02/26/2024 02:34:19 PM EDT > REFERRAL HAS BEEN FAXED, Maki Mitchell 04/15/2024 02:39:35 PM EST > OFFICE NOTE RECD Referral Priority Routine Referral Appointment Date 04/07/2024 Reason left foot pain has s purs please eval and treat Diagnosis 1 Left foot pain (M79. 672) Referral Organization Yuriy Dorado MD Referring Provider First Name Yuriy Referring Provider Last Name Estrada Referring Provider Speciality Internal M edicine Referred Provider Unknown, Provider Referred Provider Specialty Orthopedic S urgery General Notes Yaneth Wellington 01:32:31 PM EST > info faxed to office , Yaneth Wellington 05/06/2024 02:49:30 PM EST > recieved message from [facility] they want her to go to a foot doctor. Call patient with above info, she will looked in maybe being seen at [facility] An[facility] 05/14/2024 10:55:34 AM EST > let message for patient to call , Yaneth Wellington 05/28/2024 11:20:24 AM EST > left another message regarding referral, Yaneth Wellington 06/15/2024 11:19:50 AM > left another message for patient regarding referral, Yaneth Wellington 06/15/2024 03:20:37 PM > patient is aware of appt seeing Dr. Hernandez Referral Priority Routine Referral Appointment Date 07/15/2024 Medications Medication SIG (Take, Route, Frequency, Duration) Notes Start Date End Date Status Losartan Potassium-HCTZ 100-25 MG TAKE 1 TABLET BY MOUTH EVERY DAY Active Iron (Ferrous Sulfate) 325 (65 Fe) MG 1 tablet Orally Once a day for 30 day(s) Active Pantoprazole Sodium 40 MG 1 tablet Orall y Once a day for 30 day(s) Not-Taking Doxycycline Hyclate 100 MG TAKE 1 CAPSULE BY MOUTH TWICE A DAY for 90 Active Furosemide 20 MG TAKE 1 TABLET BY TYE ONCE A DAY NEEDED FOR EDEMA for 30 Not-Taking oxyCODONE HCl 5 MG 1 tablet as needed Orally every 6 hrs Not-Taking Tylenol 8 Hour Arthritis Pain 650 MG 2 tablets as needed Orally every 8 hrs Active MiraLax 17 GM/SCOOP 1 scoop mixed with 8 ounces of fluid Orally Once a day Active Centrum Silver - as directed Orally Active Senna 8.6 MG 2 tablets at bedtime as needed Orally Once a day for 30 day(s) Not-Taking Vitamin B12 1000 MCG 1 tablet Orally Onc e a day for 30 day(s) Active Vitamin D3 50 MCG (2000 UT) 1 capsule Orally Once a day Active Calcium 600 MG 1 tablet with meals Orally Once a day Active Immunizations Vaccine Route Administration Date Status Comme nts Fluarix Quadrivalent IM Intramuscular 04/20/2019 Administe red Shingrix Unknown 02/25/2018 Administered [facility] Shingrix Unknown 08/25/2018 Administered [facility] PPSV23 (Pnemovax) Unknown 08/06/2017 Administered [facility] TDaP Unknown 04/02/2017 Administered [facility] Prevnar 13 Unknown 06/02/2018 Administered Pt states th at she had it in [place]. Covid Vaccine Unknown 10/04/2020 Administered Pfizer Fluarix Quadrivalent Unknown 03/06/2020 Administered [facility] SARS-COV-2 Pfizer Unknown 10/25/2020 Administered Influenza High Dose Unknown 03/31/2021 Administered [facility] SARS-COV-2 Pfizer Unknown 05/18/2021 Administered Influenza High Dose Unknown 02/13/2022 [facility]ered [facility] Fluarix Quadrivalent Unknown 02/18/2023 [facility]ered [facility] SARS-COV-2 Pfizer Unknown 02/18/2023 [facility]ered [facility] Influenza High Dose IM Intramuscular 02/26/2024 Administer ed Social History Tobacco Use: Social History Observation Description Date Details (start date - stop date) Never Smoker NA - NA Tobacco Use/Smoking Question Answer Notes Patient is a nonsmoker Additional Findings: Tobacco Non-User Cu rrent non-smoker, currently using no form of tobacco Alcohol Screen Question Answer Notes Did you have a drink containing alcohol in the p ast year? No Points 0 Interpretation Negative Problems Problem Type SNOMED Code ICD Code Onset Dates Problem Status W/U Status Risk Notes Problem 899559843 Thyroid nodule (E04.1) Active confirmed Problem Constipation (39335682) Constipation (K59.00) Active confirmed Problem 89723600 Vitamin D deficiency (E55.9) Active confirmed Problem 98611981 Hidradenitis suppurativa (L73.2) Active confirmed Problem 407251496 Other specified menopausal and perimenopausal disorders (N95.8) Active confirmed Problem Arthritis (7988604) Arthritis (M19.90) Active c onfirmed Problem 633931984 Lumbar disc disease (M51.9) Active confirmed Problem 61347034 Essential hypertension (I10) Active confirmed Problem Stasis dermatitis (83995044) Stasis dermatitis (I83.10) Active confirmed Problem 22259612 Hip arthritis (M16.10) Active confirmed Problem 665640887703831396 History of COVID-19 (Z86.16) Active confirmed Problem 283110359 Thrombocytopenic (D69.6) Active confirmed Problem 56599073 Concussion syndrome (F07.81) Active confirmed Problem 229216636 Empty sella syndrome (E23.6) Active confirmed Vital Signs Blood pressure diastolic 70 mm Hg 07/13/2024 Height 62 in 07/13/2024 Blood pressure systolic 152 mm Hg 07/13/2024 Weight 210 lbs 07/13/2024 BMI 38.41 kg/m2 07/13/2024 Encounters Encounter Location Date Provider Diagnosis Yuriy Dorado MD [address] [place] [id number] 01/27/2024 Yuriy Dorado Thrombocytopenic D69 .6 Yuriy Dorado MD [address] [place] [id number] 12/23/2024 Yuriy Dorado Blood tests for rout ine general physical examination Z00.00 ; Essential hypertension I10 ; Vitamin D deficiency E55.9 and Thrombocytopenic D69.6 Yuriy Dorado MD [address] [place] [id number] 12/29/2023 Yuriy Dorado Thrombocytopenic D69 .6 ; Annual physical exam Z00.00 ; Essential hypertension I10 ; Vitamin D deficiency E55.9 and Depression screening Z13.31 Yuriy Dorado MD [address] [place] [id number] 02/26/2024 Yuriy Dorado Concussion syndrome F07.81 ; Adhesive capsulitis of right shoulder M75.01 and Encounter for immunization Z23 Yuriy Dorado MD [address] [place] [id number] 03/11/2024 Yuriy Dorado Empty sella syndrome E23.6 Yuriy Dorado MD [address] [place] [id number] 07/13/2024 Yuriy Dorado Essential hypertensi on I10 and Arthritis M19.90 Yuriy Dorado MD [address] [place] [address] [id number] 02/26/2024 Yuriy Dorado MD [address] [place] [id number] 05/03/2024 Yuriy Dorado MD [address] [place] [address] [id number] 2024 Yuriy Dorado MD [address] [place] [address] [id number] 01/23/2024 Yuriy Dorado MD [address] [place] [address] [id number] 02/28/2024 Yuriy Dorado MD [address] [place] [address] [id number] 03/17/2024 Yuriy Dorado MD [address] [place] [address] [id number] 03/22/2024 Yuriy Droado MD [address] [place] [address] [id number] 04/06/2024 Yuriy Dorado MD [address] [place] [address] [id number] 04/19/2024 Yuriy Dorado MD [address] [place] [address] [id number] 04/29/2024 Yuriy Dorado MD [address] [place] [address] [id number] 05/31/2024 Yuriy Dorado Assessments Encounter Date Diagnosis (ICD Code) Assessment Notes Treatment Notes Treatment Clinical Notes Section Notes 01/27/2024 Thrombocytopenic (ICD-10 - D69.6) 12/23/2024 Blood tests for routine general physical examination (ICD-10 - Z00.00) 12/29/2023 Thrombocytopenic (ICD-10 - D69.6) will continue to monitor, pending labs 12/29/2023 Annual physical exam (ICD-10 - Z00.00) labs reviewed and discussed with patient 02/26/2024 Concussion syndrome (ICD-10 - F07.81) pendng diagnostic testing 02/26/2024 Adhesive capsulitis of right shoulder (ICD-10 - M75.01) referral to [facility]/ REFERRAL MADE TO [facility] 03/11/2024 Empty sella syndrome (ICD-10 - E23.6) needs mri [place]. went over results of the mri and there was no sign of problems from her injury 07/13/2024 Essential hypertension (ICD-10 - I10) doing well with good reading, will contonue current regiment 12/23/2024 Essential hypertension (ICD-10 - I10) 12/29/2023 Essential hypertension (ICD-10 - I10) stable, will continue current regiment 02/26/2024 Encounter for immunization (ICD-10 - Z23) flu vaccine administered 07/13/2024 Arthritis (ICD-10 - M19.90) has some shoulder arthritis but is allergic to cortisone, will continue to monitor 12/23/2024 Vitamin D deficiency (ICD-10 - E55.9) 12/29/2023 Vitamin D deficiency (ICD-10 - E55.9) stable, will continue curret regiment 12/23/2024 Thrombocytopenic (ICD-10 - D69.6) 12/29/2023 Depression screening (ICD-10 - Z13.31) negative screen Plan Of Treatment Pending Test Test Name Order Date Electrocardiogram (EKG) 07/29/2019 MRI BRAIN W&WO CONTRAST 03/11/2024 MAMMOGRAM DIGITAL BILATERAL SCREEN 07/29 US THYROID BIOPSY FNA GUIDE 08/18/2023 Complete Blood Count Auto Diff 5 Comprehensive [place]. Panel Fast 5 Lipid Panel 12/23/2024 Vitamin D 25-OH Total 12/23/2024 MM tomosynthesis screening BI 10/05/2020 XR DEXA axial skeleton 10/05/2020 MR head/brain wo con 02/26/2024 US thyroid 07/31/2023 UA ClnCatch+Micro w/rflx Cult 12/23/2024 Next Appt Details Provider Name:Yuriy farrar, 12/31/2024 01:00:00 PM, [address] [place] [address], [address], [place], [place], [id number], Insurance Providers Payer Name Payer Address Payer Phone Subscriber Number Group Number Insured Name Patient Relationship to Insured Coverage Start Date Coverage End Date [employer]AGE [address] AMANDA BRYAN [id number] ReaSaima snyder Self - patient is the insured [address] [address] [id number] Saima Lucia Self - patient is the insured Medical (General) History Medical History History ICD Code had colonoscopy and endoscop y 07/2017. due in 5 years: Colonoscopy 04/23 repeat 10 years Surgical History Surgery Date(Month/Year) Breast Reduction C Section Classic Rt Hip Replacement I&D Pilonidal Abscess
--- OUTSIDE RECORDS SUMMARY | 2024-12-23 11:32 | XMS_ITS | Data Portability ---
Author Organization [facility], [facility] Address [address] [place] [address] Care Team Providers Care Trench Digger Name Role Phone LEVAR DAVIS Referring Provider [phone] LEVAR DAVIS Primary Care Provider Assessment Encounter Date Assessment Date Assessment LastModified by Organization Details LastModified Time 10/15/2024 10/15/2024 Assessment: Pt demonstrates small gains when doing AAROM with PT, versus PROM, Increased flexion, but pain at end range. 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 Not available 10/15/2024 14:09:37 10/20/2024 10/20/2024 Assessment: Pt demonstrates fairly good hunter for ex today-quick to fatigue. 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 [email or web address] Not available 10/20/2024 10:47:35 10/22/2024 10/22/2024 Assessment: Pt demonstrates fair ROM, pain with shoulder flexion stretch, not making significant progress Plan: Cont to progress as to tolerance if no gains progress to HEP. Not available 10/25/2024 18:29:14 10/26/2024 10/26/2024 Assessment: Pt demonstrates fair ROM, pain with shoulder flexion stretch, not making significant progress Plan: Cont to progress as to tolerance if no gains progress to HEP. Not available 10/26/2024 09:52:13 11/02/2024 11/02/2024 Assessment: Pt demonstrates fair ROM, pain with shoulder flexion stretch, I with HEP, has plateaued in PT, therefore D/C with HEP. Plan: D/C PT, progress to HEP. Not available 11/03/2024 04:50:35 Plan of Treatment Reminders Order Date Submit Date Provider Last Modified By Organization Details Last Modified Time Details Appointments None record ed. Lab None record ed. Referral None record ed. Procedures None record ed. Surgeries None record ed. Imaging None record ed. Medication Orders None record ed. Patient TargetsNo targets recorded. Patient InstructionsNo instructions recorded. Reason for Referral None Reported. Problems Name Problem SNOMED Code Status Onset Date Resolution Date Notes Provider Name and Address Organization Details Recorded Time Pain of right shoulder region Active 2023 [facility] 4 10:14:14 Rotator cuff arthropathy of right shoulder [id number] 9106 Active 2023 [facility] 4 10:46:41 Problem Notes None recorded. Procedures Surgical History Date Name Laterality Status Provider Name and Address Organization Details Recorded Time 5 29399 Therapeutic Exercise (1:1) completed Esvin Kowalski, PT [address], [place], [address], [facility] 11/02/2024 07:54:02 5 05464: Manual therapy completed Esvin Kowalski, PT [address], [place], [address], [facility] 11/02/2024 07:54:02 5 69670 Therapeutic Exercise (1:1) cancelled Esvin Kowalski, PT [address], [place], [address], [facility] 10/27/2024 17:30:43 5 54840: Manual therapy cancelled Esvin Kowalski, PT [address], [place], [address], [facility] 10/27/2024 17:30:43 5 69123 Therapeutic Exercise (1:1) completed Esvin Kowalski, PT [address], [place], [address], [facility] 10/26/2024 09:52:13 5 00704: Manual therapy completed Esvin Kowalski, PT [address], [place], [address], [facility] 10/26/2024 09:52:13 5 80984 Therapeutic Exercise (1:1) completed Esvin Kowalski, PT [address], [place], [address], [facility] 10/25/2024 18:30:41 50850: Manual therapy completed Esvin Kowalski, PT [address], [place], [address], [facility] 10/21/2024 13:47:27 5 79164 Therapeutic Exercise (1:1) completed Neda Chavez, FOREIGN LANGUAGE TEACHER [address], [place], [address], [facility] 10/20/2024 10:46:52 5 32123: Manual therapy completed Neda Chavez FOREIGN LANGUAGE TEACHER [address], [place], [address], [facility] 10/20/2024 10:46:49 39371 Therapeutic Exercise (1:1) completed Neda Chavez FOREIGN LANGUAGE TEACHER [address], [place], [address], [facility] 10/14/2024 20:06:26 48312: Manual therapy completed Neda Chavez FOREIGN LANGUAGE TEACHER [address], [place], [address], [facility] 10/15/2024 14:10:07 5 06058 Therapeutic Exercise (1:1) completed Esvin Kowalski, PT [address], [place], [address], [facility] 10/12/2024 05:34:12 5 81939: Manual therapy completed Esvin Kowalski, PT [address], [place], [address], [facility] 10/12/2024 05:34:12 5 83483 Therapeutic Exercise (1:1) completed Esvin Kowalski, PT [address], [place], [address], [facility] 10/06/2024 09:58:06 5 77731: Manual therapy completed Esvin Kowalski, PT [address], [place], [address], [facility] 10/06/2024 09:57:59 83027 Therapeutic Exercise (1:1) completed Esvin Kowalski, PT [address], [place], [address], [facility] 10/03/2024 18:11:05 5 50426: Manual therapy completed Esvin Kowalski, PT [address], [place], [address], [facility] 10/04/2024 14:41:06 5 04407 Therapeutic Exercise (1:1) completed Neda Chavez, FOREIGN LANGUAGE TEACHER [address], [place], [address], [facility] 09/29/2024 17:19:41 5 25223: Manual therapy completed Neda Chavez, FOREIGN LANGUAGE TEACHER [address], [place], [address], [facility] 09/29/2024 17:19:43 5 36381 Therapeutic Exercise (1:1) completed Esvin Kowalski, PT [address], [place], [address], [facility] 09/14/2024 07:52:23 36858: PT re-eval completed Esvin Kowalski, PT [address], [place], [address], [facility] 09/21/2024 15:02:08 5 G8417 BMI Above Upper Parameters, F/U Documented completed Esvin Kowalski, PT [address], [place], [address], [facility] 09/14/2024 15:30:46 5 G8427 Current Medication Documented completed Esvin Kowalski, PT [address], [place], [address], [facility] 09/14/2024 15:30:25 5 07844 Therapeutic Exercise (1:1) completed Neda Chavez, FOREIGN LANGUAGE TEACHER [address], [place], [address], [facility] 07/12/2024 17:33:43 5 09075: Manual therapy completed Neda Chavez, FOREIGN LANGUAGE TEACHER [address], [place], [address], [facility] 07/12/2024 17:33:43 5 55711 Therapeutic Exercise (1:1) cancelled Esvin Kowalski, PT [address], [place], [address], [facility] 07/08/2024 08:06:32 5 68489: Manual therapy cancelled Esvin Kowalski PT [address], [place], [address], [facility] 07/08/2024 08:06:32 5 56296 Therapeutic Exercise (1:1) completed Neda Chavez PTA [address], [place], [address], [facility] 06/30/2024 09:42:42 5 97489: Manual therapy completed Neda Chavez PTA [address], [place], [address], [facility] 06/30/2024 09:42:42 5 47427 Therapeutic Exercise (1:1) completed Esvin Kowalski, PT [address], [place], [address], [facility] 06/29/2024 07:53:32 5 74578: Manual therapy completed Esvin Kowalski, PT [address], [place], [address], [facility] 06/29/2024 07:53:32 5 73600 Therapeutic Exercise (1:1) completed Neda Chavez, FOREIGN LANGUAGE TEACHER [address], [place], [address], [facility] 06/23/2024 19:45:17 76747: Manual therapy completed Neda Chavez, FOREIGN LANGUAGE TEACHER [address], [place], [address], [facility] 06/23/2024 19:45:17 5 11910 Therapeutic Exercise (1:1) completed Neda Chavez, FOREIGN LANGUAGE TEACHER [address], [place], [address], [facility] 06/17/2024 14:46:45 60031: Manual therapy completed Neda Chavez, FOREIGN LANGUAGE TEACHER [address], [place], [address], [facility] 06/17/2024 14:46:54 41563 Therapeutic Exercise (1:1) completed Jona Monzon, PT [address], [place], [address], [facility] 06/14/2024 20:26:20 51741: Low complexity PT Eval completed Jona Laurenser, PT [address], [place], [address], [facility] 06/14/2024 20:26:09 Imaging Results None recorded. Procedure Notes None recorded. Medical Equipment None Reported. Allergies Allergen ID Allergen Name Allergen Category Reaction Reaction Severity Criticality Documentation Date Start Date Code Code System Note Provider Name and Address Organization Details Recorded Time 25561 Glycine max (substanc e) environme nt,food,m edication Not available Not available Not available 08/04/20232010 73991 5007 SNOMED Aller gyRea ction : 'Skin React ion'; Not Available Pending sale to [facility] 4 14:33:25 99242 Product containin g penicilli n (product) medicatio n Not available Not available Not available 08/04/20232010 56334 8001 SNOMED Aller gyRea ction : 'Skin React ion'; Not Available Pending sale to [facility] 4 14:33:26 58156 Norvasc medicatio n Not available Not available Not available 08/04/20232012 81848 RxNorm Not Available Pending sale to [facility] 4 14:33:26 70504 tramadol hydrochlo ride medicatio n Not available Not available Not available 08/04/20232022 66778 RxNorm Not Available Pending sale to [facility] 4 14:33:26 41421 acetamino phen / hydrocodo ne medicatio n Not available Not available Not available 08/04/20232012 13248 2 RxNorm Not Available Pending sale to [facility] 4 14:33:26 18504 latex environme nt,medica tion Not available Not available Not available 08/04/20232012 23259 91 RxNorm Not Available Pending sale to [facility] 4 14:33:26 Medications Name Sig Start Date Stop Date Status Note LastModified by Organization Details LastModified Time doxycycline hyclate 100 mg capsule TAKE 1 CAPSULE BY MOUTH TWICE A DAY active Not Available Not Available No t Available clindamycin HCl 300 mg capsule TAKE 2 CAPSULES BY MOUTH 1/2 HR PRIOR DENTAL APPT 04/07 completed Not Available Not Available Not Available tizanidine 4 mg tablet TAKE 1 TABLET BY MOUTH 3 TIMES A DAY 04/07 completed Not Available Not Available Not Available losartan 100 mg-hydrochl orothiazide 25 mg tablet TAKE 1 TABLET BY MOUTH EVERY DAY active Not Available Not Available No t Available aspirin 325 mg tablet,marco yed release TAKE ONE TABLET TWICE A DAY FOR 30 DAYS ONLY. MEDICATIO N TO BE STARTED AFTER SURGERY. 04/07 completed Not Available Not Available Not Available pantoprazol e 40 mg tablet,marco yed release TAKE 1 TABLET BY MOUTH DAILY 04/07 completed Not Available Not Available Not Available docusate sodium 100 mg capsule TAKE 1 CAPSULE BY MOUTH TWICE A DAY DIRECTED MEDICATIO N TO BE STARTED AFTER SURGERY 04/07 completed Not Available Not Available Not Available oxycodone 5 mg tablet PLEASE SEE ATTACHED FOR DETAILED DIRECTION S 04/07 completed Not Available Not Available Not Available Tylenol 8 Hour 650 mg tablet,exte nded release Take 2 tablets every 8 hours by oral route. active Not Available Not Available No t Available oxycodone HCl-oxycodo ne-ASA oxyCODONE HCl 5MG Tablet 07/10 completed Statu s: 'Disc ontin ued'; Not Available Not Available Not Available Eliquis 2.5 mg tablet TAKE 1 TABLET BY MOUTH TWO TIMES A DAY 04/07 completed Not Available Not Available Not Available Vitals None Recorded Social History None recorded. Functional Status None recorded. Mental Status None recorded. Family History Nothing Reported. Medical History No medical history recorded. Gynecological HistoryNo gynecological history recorded. Obstetrics History GPAL:G 0 P 0 0 0 0 Past Encounters Encounter ID Performer Location Encounter Start Date Encounter Closed Date Diagnosis/Indication Diagnosis SNOMED-CT Code Diagnosis ICD10 Code Diagnosis Note [id number] AMANDE[facility] [address] [place] [address] 08/15/2023 14:49:00 09/06/2023 06:19:27 Knee joint prosthesis present 1033815871 02 Z96.651 Hip joint prosthesis present 489964882 Z96.064 [id number] AMANDEEP [facility] [address] [place] [address] 04/07/2024 09:48:14 05/05/2024 09:16:08 Pain of right shoulder region 1507167762 M25.511 Rotator cu ff arthropathy of right shoulder 4794650198 9846530 M12.429 [id number] Jona Monzon, PT [facility] [address] [place] [address] 06/15/2024 10:24:52 06/15/2024 11:59:38 Rotator cuff arthropathy of right shoulder 8767184645 2383558 2.639 [id number] Neda Lowndes, FOREIGN LANGUAGE TEACHER [facility] [address] [place] [address] 06/17/2024 13:22:55 06/17/2024 14:23:59 Rotator cuff arthropathy of right shoulder 9454488401 0776367 2.917 [id number] Neda Scott, FOREIGN LANGUAGE TEACHER [facility] [address] [place] [address] 06/24/2024 12:39:51 06/24/2024 13:34:01 Rotator cuff arthropathy of right shoulder 3643311461 2377727 2.180 [id number] Esvinvivian Falconmorteza, PT [facility] [address] [place] [address] 06/29/2024 09:40:25 06/29/2024 10:19:10 Rotator cuff arthropathy of right shoulder 7663411478 3348168 2.773 [id number] Nedaherbert Chavez, FOREIGN LANGUAGE TEACHER [facility] [address] [place] [address] 07/01/2024 10:37:42 07/01/2024 11:44:44 Rotator cuff arthropathy of right shoulder 1387949469 5769585 2.268 [id number] Nedaherbert Chavez, FOREIGN LANGUAGE TEACHER [facility] [address] [place] [address] 07/13/2024 10:09:05 07/13/2024 11:51:18 Rotator cuff arthropathy of right shoulder 6214538908 5391462 2.314 [id number] Esvin Kowalski, PT [facility] [address] [place] [address] 09/14/2024 15:10:44 09/14/2024 16:58:04 Rotator cuff arthropathy of right shoulder 7867296405 2103187 2.558 [id number] Neda Chavez, FOREIGN LANGUAGE TEACHER [facility] [address] [place] [address] 09/29/2024 16:24:56 09/29/2024 17:16:22 Rotator cuff arthropathy of right shoulder 5196306037 0596334 2.054 [id number] Esvin Kowalski, PT [facility] [address] [place] [address] 10/04/2024 13:31:36 10/04/2024 15:01:18 Rotator cuff arthropathy of right shoulder 7418864256 2037275 2.325 [id number] Esvin Kowalski, PT [facility] [address] [place] [address] 10/06/2024 08:56:57 10/06/2024 11:09:52 Rotator cuff arthropathy of right shoulder 6998037589 6686775 2.678 [id number] Esvin Kowalski, PT [facility] [address] [place] [address] 10/12/2024 14:43:10 10/12/2024 17:34:29 Rotator cuff arthropathy of right shoulder 2279606261 3423395 2.620 [id number] Neda Chavez, FOREIGN LANGUAGE TEACHER [facility] [address] [place] [address] 10/15/2024 13:19:04 10/15/2024 13:58:45 Rotator cuff arthropathy of right shoulder 9884853469 1705259 2.482 [id number] Neda Chavez, FOREIGN LANGUAGE TEACHER [facility] [address] [place] [address] 10/20/2024 09:19:18 10/20/2024 10:06:41 Rotator cuff arthropathy of right shoulder 5852470733 0251493 2.985 [id number] Esvin Kowalski, PT [facility] [address] [place] [address] 10/22/2024 09:16:17 10/22/2024 10:06:23 Rotator cuff arthropathy of right shoulder 2208928446 5449223 M12.626 [id number] Esvin Kowalski, PT [facility] [address] [place] [address] 10/26/2024 14:09:01 10/26/2024 15:18:49 Rotator cuff arthropathy of right shoulder 2082289441 3467430 M12.249 [id number] Esvin Kowalski, PT [facility] [address] [place] [address] 11/02/2024 13:58:52 11/02/2024 15:06:41 Rotator cuff arthropathy of right shoulder 1463255938 1850611 M12.811 Health Concerns Section Related Observation LastModified by Organization Detai ls LastModified Time None Recorded Concern Status LastModified by Organization Details LastModified Time None Recorded Advance Directives Directive None Recorded Payers Insurance Date Sequence Insurance Name Policy Number Policy Hart Covered Member ID Hart Member ID Guarantor Name 12/20/2024 2 [place] [facility] Saima Lucia [id number] Saima Lucia 10/31/2024 1 [employer] (MEDICARE REPLACEMENT/A DVANTAGE - PPO) [id number] Saima Lucia [id number] Saima Lucia Notes Date Note Type Note Provider Name and Address Organization Details Recorded Time 10/15/2024 text/html Pt states really sore today pain 7/10 both shoulders hurt and both knees are stiff. Neda Chavez, ALEJANDRINA [address] [facility], [place], [address], [facility] 10/15/2024 14:10:42 10/20/2024 text/html Pt states shoulder about 6/10 today. Neda Chavez PTA [address], [place], [address], [facility] 10/20/2024 10:48:07 10/22/2024 text/html Pt states shoulder about 6/10 today. Esvin Kowalski, PT [address], [place], [address], [facility] 10/25/2024 18:31:56 10/26/2024 text/html Pt states shoulder about 6/10 today. Esvin Kowalski, PT [address], [place], [address], [facility] 10/26/2024 16:27:59 11/02/2024 text/html Pt states shoulder about 5/10 today. Esvin Kowalski, PT [address], [place], [address], [facility] 11/03/2024 04:50:55 OBGyn Episode No OBEpisode recorded.
--- OUTSIDE RECORDS SUMMARY | 2024-12-23 11:32 | XMS_ITS | Clinical Summary ---
Author Organization [address] [facility] Address [address] [place] [address] Phone Care Team Providers Care Compliance Review Specialist Name Role Phone Yuriy Dorado MD Primary Care Provider Allergies Active Allergy Reactions Criticality Noted Date Comments Aloe 11/09/2024 Ampicillin 11/09/2024 Latex 11/09/2024 Morphine 11/09/2024 Penicillins 11/09/2024 Medications losartan-hydroC HLOROthiazide (HYZAAR) 100-25 mg per tablet Take 1 tablet by mouth 1 (one) time each day. 3 Active doxycycline (VIBRAMYCIN) 100 mg capsule Take 1 capsule (100 mg total) by mouth 2 (two) times a day. 5 Active clindamycin phosphate 1 % gel, once daily Apply topically. 3 Active acetaminophen (Tylenol Arthritis Pain) 650 mg 8 hr tablet Take 2 tablets every 8 hours by oral route. Active clindamycin (Cleocin T) 1 % lotion Apply topically 2 (two) times a day. 60 mL 5 11/19/19 26 Active Active Problems No known active problems Encounters Date Type Department Care Team Description 11/17/2024 9:45 AM EDT Consult General Surgery [facility] [address] [facility] [address] [place] [address] Bereket Ornelas, DO Hidradenitis suppurativa (Primary Dx) 11/09/2024 8:39 AM EDT - 11/09/2024 11:15 AM EDT Emergency [facility] Emergency [address] [place] [address] Infected cyst of skin (Primary Dx) Discharge Disposition: Home or Self Care from Last 3 Months Surgical History Surgery Date Site/Laterality Comments TOTAL KNEE ARTHROPLASTY TOTAL HIP ARTHROPLASTY Medical History Medical History Date Comments Arthritis Hidradenitis suppurativa Disc disorder Hypertension Social History Tobacco Use Types Packs/Day Years Used Date Smoking Tobacco: Never Smokeless Tobacco: Never Tobacco Cessation:Counseling Given: Not Answered Alcohol Use Standard Drinks/Week Comments Never 0 (1 standard drink = 0.6 oz pur e alcohol) Comments Unknown Sex and Gender Information Value Date Recorded Sex Assigned at Not on file Legal Sex Female 7:21 AM EST Gender Identity Not on file Sexual Orientation Not on file Obstetrics History Last Filed Vital Signs Vital Sign Reading Time Taken Comments Blood Pressure 151/78 11/17/2024 9:54 AM EDT Pulse 87 11/17/2024 9:54 AM EDT Temperature 36.2 C (97.1 F) 11/17/2024 9:54 AM EDT Respiratory Rate 18 11/09/2024 11:13 AM EDT Oxygen Saturation 100% 11/09/2024 11:13 AM EDT Inhaled Oxygen Concentration - - Weight 100 kg (221 lb) 11/17/2024 9:54 AM EDT Height 154.9 cm (5' 1 ) 11/17/2024 9:54 AM EDT Body Mass Index 41.76 11/17/2024 9:54 AM EDT Plan of Treatment Health Maintenance Due Date Last Done Comments DTaP,Tdap,and Td Vaccines (1 - Tdap) 11/12/1969 Pneumococcal Vaccine: 50+ Ye ars (1 of 1 - PCV) 1998 Zoster Vaccines (1 of 2) 1998 RSV Immunization Adult Patie nts (1 - 1-dose 75+ series) 11/12/2023 COVID-19 Vaccine ( - 2023-2 5 season) 2024 Falls Risk Assessment 04/14/2024 Hepatitis C Screening 04/14/2024 Medicare Annual Wellness Visit 04/14/2024 Osteoporosis Screening (Bone Density Screening) 04/14/2024 Social Influencers of Health Screening 04/14/2024 Depression Screening 06/02/2024 Influenza Vaccine (#1) 2025 HIB Vaccines Aged Out No longer eligi ble based on patient's age to complete this topic HPV Vaccines Aged Out No longer eligi ble based on patient's age to complete this topic Hepatitis A Vaccines Aged Out No long er eligible based on patient's age to complete this topic Hepatitis B Vaccines Aged Out No long er eligible based on patient's age to complete this topic IPV Vaccines Aged Out No longer eligi ble based on patient's age to complete this topic MMR Vaccines Aged Out No longer eligi ble based on patient's age to complete this topic Meningococcal ACWY Vaccine Aged Out N o longer eligible based on patient's age to complete this topic Meningococcal B Vaccine Aged Out No l onger eligible based on patient's age to complete this topic RSV Immunization Patients Un beto 20 months Aged Out No longer eligible b ased on patient's age to complete this topic Varicella Vaccines Aged Out No longer eligible based on patient's age to complete this topic Procedures Procedure Name Priority Date/Time Associated Diagnosis Comments HC I&D/EXCISION/BIOPSY BONE MARROW/TISSUE/TUMOR /HTOMA/ABSC/CYST LEVEL 2 Routine 11/09/2024 1:29 PM EDT MO INCISION & DRAINAGE ABSCESS COMPLICATED/MULTIPL E Routine 11/09/2024 1:29 PM EDT from Last 3 Months Results * MO INCISION & DRAINAGE ABSCESS COMPLICATED/MULTIPLE, HC I&D/EXCISION/BIOPSY BONE MARROW/TISSUE/TUMOR/HTOMA/ABSC/CYST LEVEL 2 (11/09/2024 1:29 PM EDT) Narrative Say Cerda DO - 11/09/2024 1:29 PM EDT EDGARDO Faustin 11/09/2024 1:31 PM Incision and Drainage Date/Time: 11/09/2024 1:29 PM Performed by: EDGARDO Faustin Authorized by: Say Cerda DO Consent: Consent obtained: Verbal Consent given by: Patient Risks discussed: Bleeding, incomplete drainage and pain Location: Type: Abscess Location: left inguinal. Pre-procedure details: Skin preparation: Chlorhexidine Sedation: Sedation type: None Anesthesia: Anesthesia method: Local infiltration Local anesthetic: Lidocaine 1% w/o epi Procedure type: Complexity: Complex Procedure details: Ultrasound guidance: no Needle aspiration: no Incision types: Elliptical Incision depth: Submucosal Wound management: Probed and deloculated Drainage: Purulent Drainage amount: Copious Wound treatment: Drain placed Packing materials: 06/05 in iodoform gauze Post-procedure details: Procedure completion: Tolerated Comments: Given signs of abscess in nature to break up the loculations with hemostat, packing placed afterwards us Say Cerda DO IN CLINIC/BEDSIDE ORDERABLE S Final Result from Last 3 Months Insurance [employer] MED[employer]ARE [employer]VANTAGE Care Teams Compliance Review Specialist Relationship Specialty Start Date End Date Yuriy Dorado MD [address] [place] [address] Drive [address] [place] [address] PCP - General Internal Medicine 04/14/24
[2024-12-23 11:35] LABS: Alanine Aminotransferase 22 U/L (0-31); Albumin Level 4.2 g/dL (3.5-5.0); Alkaline Phosphatase 95 U/L (39-117); Anion Gap 12 (12-20); Aspartate Amino Transferase 40 U/L (5-31); Blood Urea Nitrogen 18 mg/dL (9-16); Calcium 9.3 mg/dL (8.4-10.2); Carbon Dioxide 30 mmol/L (22-29); Chloride 104 mmol/L (96-108); Cholesterol 211 mg/dL (<200); Estimated Glomerular Filt Rate > 60; HDL Cholesterol 71 mg/dL (>40); Potassium 4.2 mmol/L (3.3-5.1); Sodium 142 mmol/L (135-145); Total Protein 7.9 g/dL (6.5-8.0); Triglycerides 75 mg/dL (<150)
== END 2024-12-23 10:41 | disposition home or self-care (01) ==
LOC: HO.LNP 10:40
PROVIDERS: Visit Provider Internal Medicine
DX: Z00.00 Encounter for general adult medical examination without abnormal findings (principal); D69.6 Thrombocytopenia, unspecified; E55.9 Vitamin D deficiency, unspecified; I10 Essential (primary) hypertension
CPT/HCPCS: 80053; 80061; 81001; 82306; 85025

== ENCOUNTER 2025-02-14 12:21 | Outpatient (AMB) | payer MEDICARE, MEDICAID, SELFPAY ==
--- OUTSIDE RECORDS SUMMARY | 2024-05-31 08:15 | XMS_ITS ---
Author Organization Yuriy Dorado MD Address [address] [place] [phone] Care Team Providers Care Senior Medical Writer Name Role Phone Yuriy Dorado Primary Care Provider REASON FOR VISIT Foot Doctor Encounters Encounter Location Date Provider Diagnosis Yuriy Dorado MD 10 [facility] [address] [place] [phone] 05/31/2024 Yuriy Dorado Plan Of Treatment Next Appt Details Provider Name:Yuriy Bourgeois ieana lilia, 07/04/2025 09:00:00 AM, [address] [place] [address], [address], [phone], Provider Name:Yuriy Bourgeois ier, 12/29/2025 07:15:00 AM, [address] [place] [address], [address] [place] [address], [phone], Provider Name:Yuriy farrar, 01/05/2026 11:00:00 AM, [address] [place] [address], [address], [phone], Progress Notes * Bernard LUCIAOB: 9 (73 yo F)Acc No.[id number]:05/31/2024 Patient: Saima Cloud :1950 A ge:73 Y S ex:Female Address:[address] [place] [address] ISAIAH jay, [address] * true * Date: Generated for Frank ferreira/Josh/Virginiasmitting on: 0 02/14/2025 05:00 PM EDT
--- OUTSIDE RECORDS SUMMARY | 2024-07-13 10:00 | XMS_ITS ---
Author Organization Yuriy Dorado MD Address [address] [place], [place] [phone] Care Team Providers Care Java Android Developer Name Role Phone Yuriy Dorado Primary Care Provider [phone] Allergies Allergen (clinical drug ingredient) Drug/Non Drug Allergy documented on EMR Reaction Allergy Type Onset Date Status tramadol Tramadol unconscious Drug Allergy Activ e cortisone Cortisone rash and itching Drug Allergy Active 12 Hour Nasal [place] Unknown Drug Allergy Active aloe (uncoded) rash and swelling Allergy Active Penicillin rash and trouble breatihing Drug Allergy Active morphine Morphine was not able to talk Drug Allergy Active REASON FOR VISIT 6 MO F/U Medications Medication SIG (Take, Route, Frequency, Duration) Notes Start Date End Date Status Losartan Potassium-HCTZ 100-25 MG TAKE 1 TABLET BY MOUTH EVERY DAY Active Iron (Ferrous Sulfate) 325 (65 Fe) MG 1 tablet Orally Once a day for 30 day(s) Active Senna 8.6 MG 2 tablets at bedtime as needed Orally Once a day for 30 day(s) Not-Taking Vitamin D3 50 MCG (1999 UT) 1 capsule Orally Once a day Active Calcium 600 MG 1 tablet with meals Orally Once a day Active Tylenol 8 Hour Arthritis Pain 650 MG 2 tablets as needed Orally every 8 hrs Active MiraLax 17 GM/SCOOP 1 scoop mixed with 8 ounces of fluid Orally Once a day Active Centrum Silver - as directed Orally Active Vitamin B12 1000 MCG 1 tablet Orally Onc e a day for 30 day(s) Active Pantoprazole Sodium 40 MG 1 tablet Orall y Once a day for 30 day(s) Not-Taking Doxycycline Hyclate 100 MG TAKE 1 CAPSULE BY MOUTH TWICE A DAY for 90 Active Furosemide 20 MG TAKE 1 TABLET BY TYE TH ONCE A DAY NEEDED FOR EDEMA for 30 Not-Taking oxyCODONE HCl 5 MG 1 tablet as needed Orally every 6 hrs Not-Taking Vital Signs Blood pressure systolic 152 mm Hg 07/13/19 25 Blood pressure diastolic 70 mm Hg 025 Height 62 in 07/13/2024 Weight 210 lbs 07/13/2024 BMI 38.41 kg/m2 07/13/2024 Encounters Encounter Location Date Provider Diagnosis Yuriy Dorado MD [address] [place] [address] [place] [phone] 07/13/2024 Yuriy Dorado Essential hypertension I10 and Arthritis M19.90 Assessments Encounter Date Diagnosis (ICD Code) Assessment Notes Treatment Notes Treatment Clinical Notes Section Notes 07/13/2024 Essential hypertension (ICD-10 - I10) doing well with good reading, will contonue current regiment 07/13/2024 Arthritis (ICD-10 - M19.90) has some shoulder arthritis but is allergic to cortisone, will continue to monitor Plan Of Treatment Medication Medication Name Sig Start Date Stop Date Notes Losartan Potassium-HCTZ 100- 25 MG TAKE 1 TABLET BY MOUTH EVERY DAY Treatment Notes Assessment Notes Essential hypertension doing well with g ood reading, will contonue current regiment Arthritis has some shoulder ar thritis but is allergic to cortisone, will continue to monitor Next Appt Details Provider Name:Yuriy farrar, 07/04/2025 09:00:00 AM, [address] [place] [address], [address], [place], [place], [phone], Provider Name:Yuriy farrar, 12/29/2025 07:15:00 AM, [address] [place] [address], Suite [facility], [place], [place], [phone], Provider Name:Yuriy farrar, 01/05/2026 11:00:00 AM, [address] [place] [address], [address], [place], [phone], Progress Notes * Bernard LUCIAOB: 9 (73 yo F)Acc No.[id number]:07/13/2024 Progress Notes Patient: Saima JULIAN Provider: Kari Dorado MD :1950 A ge:73 Y S ex:Female Date:07/13/2024 Address:[address] [place] [address] [facility] [id number] Subjective: * Chief Complaints: * 6 MO F/U * HPI: S ymptom(s): patient is a 73 yo female here for 6 month still having trouble with heel and has appt with dr coleman. * ROS: G eneral/Constitutional: Denies C hills. D enies F atigue. D enies F ever. D enies H eadache. E NT: Patient denies d ecreased sense of smell, any loss of taste, sore throat. D enies S ore throat. R espiratory: Denies C ough. D enies S hortness of breath at rest. D enies S hortness of breath with exertion. G astrointestinal: Denies D iarrhea. D enies N ausea. M usculoskeletal: Patient denies m uscle aches. P eripheral Vascular: Patient denies r ed and blue toes. * Medical History: * Surgical History: * Hospitalization/Major Diagno stic Procedure: * Medications: T akingMiraLax 17 GM/SCOOP Powder 1 scoop mixed with 8 ounces of fluid Orally Once a day Tylenol 8 Hour Arthritis Pain 650 MG Tablet Extended Release 2 tablets as needed Orally every 8 hrs Centrum Silver - Tablet as directed Orally Vitamin B12 1000 MCG Tablet Extended Release 1 tablet Orally Once a day Calcium 600 MG Tablet 1 tablet with meals Orally Once a day Vitamin D3 50 MCG (1999 UT) Capsule 1 capsule Orally Once a day Iron (Ferrous Sulfate) 325 (65 Fe) MG Tablet 1 tablet Orally Once a day Losartan Potassium-HCTZ 100-25 MG Tablet TAKE 1 TABLET BY MOUTH EVERY DAY Doxycycline Hyclate 100 MG Capsule TAKE 1 CAPSULE BY MOUTH TWICE A DAY Taking MiraLax 17 GM/SCOOP Powder 1 scoop mixed with 8 ounces of fluid Orally Once a day Taking Tylenol 8 Hour Arthritis Pain 650 MG Tablet Extended Release 2 tablets as needed Orally every 8 hrs Taking Centrum Silver - Tablet as directed Orally Taking Vitamin B12 1000 MCG Tablet Extended Release 1 tablet Orally Once a day Taking Calcium 600 MG Tablet 1 tablet with meals Orally Once a day Taking Vitamin D3 50 MCG (2000 UT) Capsule 1 capsule Orally Once a day Taking Iron (Ferrous Sulfate) 325 (65 Fe) MG Tablet 1 tablet Orally Once a day Taking Losartan Potassium-HCTZ 100-25 MG Tablet TAKE 1 TABLET BY MOUTH EVERY DAY Taking Doxycycline Hyclate 100 MG Capsule TAKE 1 CAPSULE BY MOUTH TWICE A DAY Not-Taking/PRNSenna 8.6 MG Tablet 2 tablets at bedtime as needed Orally Once a day Pantoprazole Sodium 40 MG Tablet Delayed Release 1 tablet Orally Once a day oxyCODONE HCl 5 MG Tablet 1 tablet as needed Orally every 6 hrs Furosemide 20 MG Tablet TAKE 1 TABLET BY MOUTH ONCE A DAY NEEDED FOR EDEMA Not-Taking/PRN Senna 8.6 MG Tablet 2 tablets at bedtime as needed Orally Once a day Not-Taking/PRN Pantoprazole Sodium 40 MG Tablet Delayed Release 1 tablet Orally Once a day Not-Taking/PRN oxyCODONE HCl 5 MG Tablet 1 tablet as needed Orally every 6 hrs Not-Taking/PRN Furosemide 20 MG Tablet TAKE 1 TABLET BY MOUTH ONCE A DAY NEEDED FOR EDEMA DiscontinuedAdvil 200 MG Tablet 1 tablet with food or milk as needed Orally Three times a day Medication List reviewed and reconciled with the patientDiscontinued Advil 200 MG Tablet 1 tablet with food or milk as needed Orally Three times a day Medication List reviewed and reconciled with the patient * Allergies: a mg: rash and swellingCortisone: rash and itchingPenicillin: rash and trouble [id number] Hour Nasal SprayTramadol: unconsciousMorphine: was not able to talkyes[Allergies Verified] Objective: * Vitals: H t: 62, Wt: 210, BMI:38.41, BP:152/70, Repeat BP:120/66, Wt-k.26. * Examination: G eneral Examination: GENERAL APPEARANCE: a lert, well hydrated, in no distress.? HEAD: n ormocephalic. SKIN: g ood turgor. HEART: r egular rate and rhythm, no murmurs, rubs, gallops.? LUNGS: n o wheezes, rales, rhonchi, good air movement, clear to auscultation bilaterally. Assessment: * Assessment: 1. E ssential hypertension - I10 (Primary) 2 . A rthritis - M19.90 ? Plan: * Treatment: 2. A rthritis Notes: has some shoulder arthritis but is allergic to cortisone, will continue to monitor ? * Procedure Codes: * * Sign off status: Completed true * Provider: Kari Dorado MD Date: 0 07/13/2024 Generated for Frank ferreira/Josh/Jessitting on: 0 02/14/2025 05:01 PM EDT History and Physical Notes * HPI (History of Present Illness) Category Sub-Category Detail Notes Category Not es Symptom(s) patient is a 73 yo female here for 6 month still having trouble with heel and has appt with dr coleman Examination Category Sub-Category Detail Notes Category Not es General Examination GENERAL APPEARANCE: alert, w ell hydrated, in no distress HEAD: normocephalic HEART: regular rate and rhy thm, no murmurs, rubs, gallops LUNGS: no wheezes, rales, r honchi, good air movement, clear to auscultation bilaterally SKIN: good turgor
--- OUTSIDE RECORDS SUMMARY | 2024-11-11 10:02 | XMS_ITS ---
Author Organization Yuriy Dorado MD Address [address] [place] [phone] Care Team Providers Care Administrator Health Care Facility Name Role Phone Yuriy Dorado Primary Care Provider REASON FOR VISIT ER visit rec'd Encounters Encounter Location Date Provider Diagnosis Yuriy Dorado MD 10 [facility] [address] [place] [phone] 2024 Yuriy Dorado Plan Of Treatment Next Appt Details Provider Name:Yuriy Bourgeois ier, 07/04/2025 09:00:00 AM, [address] [place] [address], [address] [place] [address], [phone], Provider Name:Yuriy Bourgeois ier, 12/29/2025 07:15:00 AM, [address] [place] [address], [address] [place] [address], [phone], Provider Name:Yuriy farrar, 01/05/2026 11:00:00 AM, [address] [place] [address], [address] [place] [address], [phone], Progress Notes * Bernard LUCIAOB: 9 (74 yo F)Acc No.[id number]:2024 Patient: Saima JULIAN :1950 A ge:74 Y S ex:Female Address:[address] [place] [address] ISAIAH jay, [address] * true * Date: Generated for Frank ferreira/Josh/Virginiasmitting on: 0 02/14/2025 05:01 PM EDT
--- OUTSIDE RECORDS SUMMARY | 2024-12-23 03:45 | XMS_ITS ---
Author Organization Yuriy Dorado MD Address [address] [place], [place] [phone] Care Team Providers Care Retread Technician Name Role Phone Yuriy Dorado Primary Care Provider Results Component Value Reference Range Notes Complete Blood Count Auto Di ff Reviewed date:12/23/2024 05:03:21 PM Interpretation: Performing Lab:[facility], [address] [place] [phone] Notes/Report: White Blood Count 4.3 4.8-10.8 X10*3/uL Red Blood Count 4.17 4.20-5.50 X10*6/uL Hemoglobin 11.9 12.0-16.0 g/dl Hematocrit 37.6 37.0-47.0 % Mean Corpuscular Volume 90.2 80.0-98.0 fL Mean Corpuscular Hemoglobin 28.5 27.0-33.0 pg Mean Corpuscular HGB Conc 31.6 31.0-35.0 g/dl Red Cell Distribution Width 13.0 11.0-16.0 % Platelet Count 208 160-400 X10*3/uL Mean Platelet Volume 10.7 9.4-12.3 fL Neutrophils Percent Auto 51.4 45-73 % Imm Gran Pct Auto 0.2 0.0-0.4 % Lymphocytes Percent Auto 33.9 20-40 % Monocytes Percent Auto 13.3 2-11 % Eosinophils Percent Auto 0.5 0-4 % Basophils Percent Auto 0.7 0-2 % NRBC Pct Auto 0.0 0.0-0.2 /100WBC Neutrophils Absolute Auto 2.2 2.0-8.3 x10*3/u L Imm Gran Abs Auto 0.01 0.00-0.03 X10*3/uL Lymphocytes Absolute Auto 1.5 1.2-4.9 X10*3/u L Monocytes Absolute Auto 0.6 0.1-1.2 X10*3/uL Eosinophils Absolute Auto 0.0 0.0-0.4 X10*3/u L Basophils Absolute Auto 0.0 0.0-0.2 X10*3/uL NRBC Abs Auto 0.000 0.0-0.012 X10*3/uL Comprehensive [place]. Panel Fa st Reviewed date:12/23/2024 05:03:41 PM Interpretation: Performing Lab:[facility], [address] [place] [phone] Notes/Report: Sodium 142 135-145 mmol/L Potassium 4.2 3.3-5.1 mmol/L Slight Hemoly sis.Interpret result with caution. Chloride 104 96-108 mmol/L Carbon Dioxide 30 22-29 mmol/L Anion Gap 12 12-20 Blood Urea Nitrogen 18 9-16 mg/dL Creatinine 0.79 0.5-1.4 mg/dL Estimated Glomerular Filt Rate > 60 Chronic Kidney Disease: Estimated GFR < 60 mL/min/1.73m2 Severe Kidney Disease: Estimated GFR < 15 mL/min/1.73m2 Glucose Fasting 87 60-99 mg/dL Calcium 9.3 8.4-10.2 mg/dL Bilirubin Total 0.5 0.0-1.0 mg/dL Aspartate Amino Transferase 40 5-31 U/L Slight Hemolysis.Interpret result with caution. Alanine Aminotransferase 22 0-31 U/L Total Protein 7.9 6.5-8.0 g/dL Albumin Level 4.2 3.5-5.0 g/dL Alkaline Phosphatase 95 39-117 U/L Lipid Panel Reviewed date:12/23/2024 12:32:43 PM Interpretation: Performing Lab:[facility], [address] [place] [phone] Notes/Report: Triglycerides 75 <150 mg/dL Desirable Triglyceride: less than 150 mg/dL Borderline High Triglyceride 150-199 mg/dL High Triglyceride: 200-499 mg/dL Very High Triglyceride: greater than or equal to 5OO mg/dL Cholesterol 211 <200 mg/dL Desirable Cholesterol: less than 200 mg/dL Borderline High Cholesterol: 200-239 mg/dL High Cholesterol: greater than 239 mg/dL LDL Cholesterol Calculated 125 <100 mg/dL Desirable LDL: less than 100 mg/dL Near Optimal/Above Optimal LDL: 110-129 mg/dL Borderline High LDL: 130-159 mg/dL High LDL: 160-189 mg/dL Very High LDL: greater than or equal to 190 mg/dL HDL Cholesterol 71 >40 mg/dL Desirable HDL: greater than 40 mg/dL Note: This HDL assay may give artificially low results in patients with liver disease. Vitamin D 25-OH Total Reviewed date:12/23/2024 12:32:34 PM Interpretation: Performing Lab:[facility], [address] [place] [phone] Notes/Report: Vitamin D 25-OH Total 29.8 >30 ng/mL Health Based Reference Values* < 20 ng/mL Deficient 20-30 ng/mL Insufficient > 30 ng/mL Sufficient *Meche ESTEVES. N Engl J Med. 2007;357:266-280 There is no well-established upper level of normal vitamin D levels. Some laboratories use 50 ng/mL as an upper limit of normal. However, toxicity is patient-dependent and may occur at any level. Careful correlation with the patient's presentation is necessary and, if there is concern for vitamin D toxicity, treatment should be considered irrespective of the serum level. Care must be taken in interpreting Vitamin D results from different laboratories and methodologies. Published data demonstrated that results from patients undergoing hemodialysis may show a negative bias when tested with various automated 25-OH vitamin D assays when compared to LC-MS/MS. When testing samples from patients whose predominant form of Vitamin D is Vitamin D2, such as patients receiving Vitamin D2 supplementation, results that are subtherapeutic should be confirmed with another method such as LC-MS/MS. DARRYL ClnCatch+Micro w/rflx Cul t Reviewed date:12/23/2024 05:04:02 PM Interpretation: Performing Lab:[facility], [address] [place] [phone] Notes/Report: [id number] Urine, Clean Catch Color Urine Yellow Appearance Urine Clear PH 7.5 5.0-9.0 Glucose Urine UA Negative Negative mg/dL Urine Blood Negative Negative Specific [place] - Urine 1.010 1.005-1.025 Urine Protein Negative Neg-Trace mg/dL Urine Ketones Negative Negative mg/dL Nitrite Urine Negative Negative Leukocyte Esterase Urine Trace Negative RBC Urine 0-2 0-2 /HPF WBC Urine 0-5 0-5 /HPF Squamous Epithelial Cell Urine 3-5 0-2 /HPF Bacteria Urine None Seen None Seen Hyaline Casts Urine 0-2 0-2 /LPF REASON FOR VISIT FASTING LABS Encounters Encounter Location Date Provider Diagnosis Yuriy Dorado MD [address] [place] [address] [place] [phone] 12/23/2024 Yuriy Dorado Blood tests for rout ine general physical examination Z00.00 ; Essential hypertension I10 ; Vitamin D deficiency E55.9 and Thrombocytopenic D69.6 Assessments Encounter Date Diagnosis (ICD Code) Assessment Notes Treatment Notes Treatment Clinical Notes Section Notes 12/23/2024 Blood tests for routine general physical examination (ICD-10 - Z00.00) 12/23/2024 Essential hypertension (ICD-10 - I10) 12/23/2024 Vitamin D deficiency (ICD-10 - E55.9) 12/23/2024 Thrombocytopenic (ICD-10 - D69.6) Plan Of Treatment Next Appt Details Provider Name:Yuriy farrar, 07/04/2025 09:00:00 AM, [address] [place] [address], [address] [place] [address], [phone], Provider Name:Yuriy farrar, 12/29/2025 07:15:00 AM, [address] [place] [address], [address], [phone], Provider Name:Yuriy farrar, 01/05/2026 11:00:00 AM, [address] [place] [address], [address], [phone], Progress Notes * Sincere LUCIA: 9 (74 yo F)Acc No.[id number]:12/23/2024 Progress Note Patient: Saima JULIAN Provider: Kari Dorado MD :1950 A ge:74 Y S ex:Female Date:12/23/2024 Address:[address] [place], [place] [phone] Subjective: * Chief Complaints: * 1 . FASTING LABS. * Medical History: Objective: * Vitals: Assessment: * Assessment: 1. B lood tests for routine general physical examination - Z00.00 (Primary) 2 .?Essential hypertension - I10 3 . V itamin D deficiency - E55.9 ?4. T hrombocytopenic - D69.6 Plan: * Treatment: 2. E ssential hypertension L AB: Complete Blood Count Auto Diff (Collection Date & Time - 12/23/2024 07:45 AM) L AB: Comprehensive [place]. Panel Fast (Collection Date & Time - 12/23/2024 07:45 AM) L AB: Lipid Panel (Collection Date & Time - 12/23/2024 07:45 AM) L AB: Vitamin D 25-OH Total (Collection Date & Time - 12/23/2024 07:45 AM) L AB: UA ClnCatch+Micro w/rflx Cult (Collection Date & Time - 12/23/2024 07:45 AM) 3. V itamin D deficiency L AB: Complete Blood Count Auto Diff (Collection Date & Time - 12/23/2024 07:45 AM) L AB: Comprehensive [place]. Panel Fast (Collection Date & Time - 12/23/2024 07:45 AM) L AB: Lipid Panel (Collection Date & Time - 12/23/2024 07:45 AM) L AB: Vitamin D 25-OH Total (Collection Date & Time - 12/23/2024 07:45 AM) L AB: UA ClnCatch+Micro w/rflx Cult (Collection Date & Time - 12/23/2024 07:45 AM) 4. T hrombocytopenic L AB: Complete Blood Count Auto Diff (Collection Date & Time - 12/23/2024 07:45 AM) L AB: Comprehensive [place]. Panel Fast (Collection Date & Time - 12/23/2024 07:45 AM) L AB: Lipid Panel (Collection Date & Time - 12/23/2024 07:45 AM) L AB: Vitamin D 25-OH Total (Collection Date & Time - 12/23/2024 07:45 AM) L AB: UA ClnCatch+Micro w/rflx Cult (Collection Date & Time - 12/23/2024 07:45 AM) * Procedure Codes: 3 6415 VENIPUNCT, ROUTINE* * * The named appointment provid er may or may not be the originator of this progress note, and it is not deemed complete until electronically signed by the appointment provider. Sign off status: Pending * Provider: Kari Dorado MD Date: 0 12/23/2024 Generated for Frank ferreira/Josh/Bhavik on: 0 02/14/2025 05:01 PM EDT
--- OUTSIDE RECORDS SUMMARY | 2024-12-31 09:00 | XMS_ITS ---
Author Organization Yuriy Dorado MD Address [address] [place], [place] [id number] Care Team Providers Care Door Puller Name Role Phone Yuriy Dorado Primary Care Provider Allergies Allergen (clinical drug ingredient) Drug/Non Drug Allergy documented on EMR Reaction Allergy Type Onset Date Status tramadol Tramadol unconscious Drug Allergy Activ e cortisone Cortisone rash and itching Drug Allergy Active 12 Hour Nasal [place] Unknown Drug Allergy Active aloe (uncoded) rash and swelling Allergy Active Penicillin rash and trouble breatihing Drug Allergy Active morphine Morphine was not able to talk Drug Allergy Active Reason For Referral Reason foreign body Abnor mal draining boil in left groin Diagnosis 1 Residual foreign bod y in soft tissue (M79.5) Referral Organization Yuriy Dorado MD Referring Provider First Name Yuriy Referring Provider Last Name Estrada Referring Provider Speciality Internal M edicine Referred Provider Carl Wu Referred Provider Specialty Surgery General Notes Yaneth Wellington 0 01/03/2025 10:14:02 AM >info faxedAmish Annette 01/03/2025 11:54:34 AM >called patient with info and mailed Referral Priority Routine Referral Appointment Date 02/14/2025 REASON FOR VISIT ANNUAL EXAM Medications Medication SIG (Take, Route, Frequency, Duration) Notes Start Date End Date Status Tylenol 8 Hour Arthritis Pain 650 MG 2 tablets as needed Orally every 8 hrs Active MiraLax 17 GM/SCOOP 1 scoop mixed with 8 ounces of fluid Orally Once a day Active Vitamin D3 50 MCG (2000 UT) 1 capsule Orally Once a day Active Furosemide 20 MG TAKE 1 TABLET BY TYE TH ONCE A DAY NEEDED FOR EDEMA for 30 Not-Taking Losartan Potassium-HCTZ 100-25 MG TAKE 1 TABLET BY MOUTH EVERY DAY Active Doxycycline Hyclate 100 MG TAKE 1 CAPSULE BY MOUTH TWICE A DAY for 90 Active Iron (Ferrous Sulfate) 325 (65 Fe) MG 1 tablet Orally twice a month for 30 days Active Senna 8.6 MG 2 tablets at bedtime as needed Orally Once a day for 30 day(s) Not-Taking oxyCODONE HCl 5 MG 1 tablet as needed Orally every 6 hrs Not-Taking Pantoprazole Sodium 40 MG 1 tablet Orall y Once a day for 30 day(s) Not-Taking Calcium 600 MG 1 tablet with meals Orally Once a day Active Vitamin B12 1000 MCG 1 tablet Orally Onc e a day for 30 day(s) Active Centrum Silver - as directed Orally Active Social History Tobacco Use: Social History Observation [...] ast year? No Points 0 Interpretation Negative Vital Signs Blood pressure systolic 138 mm Hg 01/01/20 25 Blood pressure diastolic 70 mm Hg 025 Height 62 in 12/31/2024 Weight 224 lbs 12/31/2024 BMI 40.97 kg/m2 12/31/2024 weight is up 14 pounds since 07-13-24 Encounters Encounter Location Date Provider Diagnosis Yuriy Dorado MD [address] [place], [place] [id number] 12/31/2024 Yuriy Dorado Annual physical exam Z00.00 ; Hidradenitis suppurativa L73.2 ; Essential hypertension I10 ; Foreign body (FB) in soft tissue M79.5 ; Vitamin D deficiency E55.9 and Depression screening Z13.31 Assessments Encounter Date Diagnosis (ICD Code) Assessment Notes Treatment Notes Treatment Clinical Notes Section Notes 12/31/2024 Annual physical exam (ICD-10 - Z00.00) labs reviewed and discussed with patient 12/31/2024 Hidradenitis suppurativa (ICD-10 - L73.2) is getting better, will continue to monitor 12/31/2024 Essential hypertension (ICD-10 - I10) well controlled, will continue current regiment 12/31/2024 Foreign body (FB) in soft tissue (ICD-10 - M79.5) is an old stich from her c section that is bothering/ referral to dr riggs 12/31/2024 Vitamin D deficiency (ICD-10 - E55.9) stable, will continue current regiment 12/31/2024 Depression screening (ICD-10 - Z13.31) negative screen Plan Of Treatment Medication Medication Name Sig Start Date Stop Date Notes Vitamin D3 50 MCG (1999) 1 capsule Orally Once a day Losartan Potassium-HCTZ 100- 25 MG TAKE 1 TABLET BY MOUTH EVERY DAY Treatment Notes Assessment Notes Annual physical exam labs reviewed and d iscussed with patient Hidradenitis suppurativa is getting bett er, will continue to monitor Essential hypertension well controlled, will continue current regiment Foreign body (FB) in soft tissue is an o ld stich from her c section that is bothering/ referral to dr riggs Vitamin D deficiency stable, will contin ue current regiment Depression screening negative screen Referrals Referral Date Details 12/31/2024 12/31/2024, foreign body Abnormal draining boil in left groin, Carl Wu Next Appt Details Follow Up: 6 Months, Reason: Provider Name:Yuriy farrar, 07/04/2025 09:00:00 AM, [address] [place] [address], [address], [place], [place], [id number], Provider Name:Yuriy farrar, 12/29/2025 07:15:00 AM, [address] [place] [address] Drive, [address], [place], [place], [id number], Provider Name:Yuriy farrar, 01/05/2026 11:00:00 AM, [address] [place] [address], [address], [place], [place], [id number], Progress Notes * Sincere LUCIA: 9 (74 yo F)Acc No.[id number]:12/31/2024 Progress Notes Patient: Saima JULIAN Provider: Kari Dorado MD :1950 A ge:74 Y S ex:Female Date:12/31/2024 Address:[address] [place], [place] [id number] Subjective: * Chief Complaints: * A NNUAL EXAM * HPI: D epression Screening: PHQ-9 L ittle interest or pleasure in doing things N ot at all, F eeling down, depressed, or hopeless N ot at all, T rouble falling or staying asleep, or sleeping too much N ot at all, F eeling tired or having little energy N ot at all, P oor appetite or overeating N ot at all, F eeling bad about yourself or that you are a failure, or have let yourself or your family down N ot at all, T rouble concentrating on things, such as reading the newspaper or watching television N ot at all, M oving or speaking so slowly that other people could have noticed; or the opposite, being so fidgety or restless that you have been moving around a lot more than usual N ot at all, T houghts that you would be better off or of hurting yourself in some way N ot at all, T otal Score 0 . I nterpretation and Intervention D epression Screening Findings N egative, F ollow-Up for Depression : review of PHQ-9 found negative result, no follow-up needed. C ommunication Needs: Communication Needs D oes the patient have a hearing impairment N o, D oes the patient have a vision impairment? Y es, I f yes, what is the vision impairment? G lasses, D oes the patient have a cognition impairment? N o. F all Risk: History H ave you had any falls with injury in the past year? N o, H ave you had two or more falls in the past year? N o. S MELCHOR Questions: SDOH Questions I n the past year have you been worried about losing housing? N o, I n the past year have you or any family members you live with been unable to get any of the following when it was really needed? Check all that apply: N one. S ymptom(s): patient is a 74 yo female here for annual visit with review of recent labs and follow up of chronic issues. * ROS: G eneral/Constitutional: Change in appetite d enies. C hills d enies. F ever d enies. O phthalmologic: Blurred vision d enies. D ischarge d enies. P ain d enies. E NT: Decreased hearing d enies. S ore throat d enies.?Swollen glands d enies. E ndocrine: Cold intolerance d enies. E xcessive thirst d enies. H eat intolerance d enies. W eight loss d enies. R espiratory: Cough d enies. S hortness of breath at rest d enies. S hortness of breath with exertion d enies. W heezing d enies. C ardiovascular: Chest pain at rest d enies. C hest pain with exertion?denies. I rregular heartbeat d enies. S hortness of breath d enies. ? G astrointestinal: Abdominal pain d enies. C hange in bowel habits d enies. D iarrhea d enies. N ausea d enies. R ectal bleeding d enies. V omiting d enies . G enitourinary: Blood in urine d enies. D ifficulty urinating d enies. F requent urination d enies. U rinary incontinence D enies. M usculoskeletal: Painful joints d enies. W eakness d enies. ? S kin: Dry skin d enies. I tching d enies. D enies?Mole(s), changes in moles, new moles or any lesions of concern. D enies P hotosensitivity. R fredrick d enies. N eurologic: Dizziness d enies. F ainting d enies. H eadache?denies. * Medical History: * Surgical History: * Hospitalization/Major Diagno stic Procedure: * Family History: F ather: 96 yrs, diagnosed with Cancer. M other: 88 yrs, diagnosed with Diabetes, Hypertension. 4 brother(s) , 5 sister(s) . 2 son(s) . . Father-Dementia Mother- Old Age, Denies mental health/substance abuse family history, Denies mental health/substance abuse family history, Denies mental health/substance abuse family history, Denies mental health/substance abuse family history. * Social History: T obacco Use: T obacco Use/Smoking P atient is a n onsmoker, A dditional Findings: Tobacco Non-User C urrent non-smoker, currently using no form of tobacco. D rugs/Alcohol: A lcohol Screen D id you have a drink containing alcohol in the past year? N o, P oints 0 , I nterpretation N egative. M iscellaneous: C affeine: no. Children: yes. Community involvements: no. Exercise: no. Home smoke detector use: yes. Housing: owning. Living with: family. Marital status: . Occupation: retired on disability. Pets: none. Travel outside of the [place]: no. * Medications: T akingMiraLax 17 GM/SCOOP Powder [...] Once a day Vitamin D3 50 MCG (2000 UT) Capsule 1 capsule Orally Once a day Iron (Ferrous Sulfate) 325 (65 Fe) MG Tablet 1 tablet Orally twice a month Doxycycline Hyclate 100 MG Capsule TAKE 1 CAPSULE BY MOUTH TWICE A DAY Losartan Potassium-HCTZ 100-25 MG Tablet TAKE 1 TABLET BY MOUTH EVERY DAY Taking MiraLax 17 GM/SCOOP Powder 1 [...] (65 Fe) MG Tablet 1 tablet Orally twice a month Taking Doxycycline Hyclate 100 MG Capsule TAKE 1 CAPSULE BY MOUTH TWICE A DAY Taking Losartan Potassium-HCTZ 100-25 MG Tablet TAKE 1 TABLET BY MOUTH EVERY DAY Not-Taking/PRNSenna 8.6 MG Tablet 2 tablets at bedtime as needed Orally Once a day Pantoprazole Sodium 40 MG Tablet Delayed Release 1 tablet Orally Once a day oxyCODONE HCl 5 MG Tablet 1 tablet as needed Orally every 6 hrs Furosemide 20 MG Tablet TAKE 1 TABLET BY MOUTH ONCE A DAY NEEDED FOR EDEMA Medication List reviewed and reconciled with the patientNot-Taking/PRN Senna 8.6 MG Tablet 2 tablets at bedtime as needed Orally Once a day Not-Taking/PRN Pantoprazole Sodium 40 MG Tablet Delayed Release 1 tablet Orally Once a day Not-Taking/PRN oxyCODONE HCl 5 MG Tablet 1 tablet as needed Orally every 6 hrs Not-Taking/PRN Furosemide 20 MG Tablet TAKE 1 TABLET BY MOUTH ONCE A DAY NEEDED FOR EDEMA Medication List reviewed and reconciled with the patient * Allergies: a mg: rash and swellingCortisone: rash and itchingPenicillin: rash and trouble [id number] Hour Nasal SprayTramadol: unconsciousMorphine: was not able to talkyes[Allergies Verified] Objective: * Vitals: H t: 62, Wt: 224, BMI:40.97, BP:138/70, Wt-k.61. weight is up 14 pounds since 07-13-24. * P ast Orders: L ab:UA ClnCatch+Micro w/rflx Cult (Order Date - 12/23/2024) (Collection Date & Time - 12/23/2024 07:45 AM) Value Reference Range Color Urine Yellow - Appearance Urine Clear - PH 7.5 5.0-9.0 - Glucose Urine UA Negative Negative - mg/dL Urine Blood Negative Negative - Specific [place] - Urine 1.010 1.005-1.025 - Urine Protein Negative Neg-Trace - mg/dL Urine Ketones Negative Negative - mg/dL Nitrite Urine Negative Negative - Leukocyte Esterase Urine Trace A Negative - RBC Urine 0-2 0-2 - /HPF WBC Urine 0-5 0-5 - /HPF Squamous Epithelial Cell Urine 3-5 0-2 - /HP F Bacteria Urine None Seen None Seen - Hyaline Casts Urine 0-2 0-2 - /LPF L ab:Complete Blood Count Auto Diff (Order Date - 12/23/2024) (Collection Date & Time - 12/23/2024 07:45 AM) Value Reference Range White Blood Count 4.3 L 4.8-10.8 - X10*3/uL Red Blood Count 4.17 L 4.20-5.50 - X10*6/uL Hemoglobin 11.9 L 12.0-16.0 - g/dl Hematocrit 37.6 37.0-47.0 - % Mean Corpuscular Volume 90.2 80.0-98.0 - fL Mean Corpuscular Hemoglobin 28.5 27.0-33.0 - pg Mean Corpuscular HGB Conc 31.6 31.0-35.0 - g/ dl Red Cell Distribution Width 13.0 11.0-16.0 - % Platelet Count 208 160-400 - X10*3/uL Mean Platelet Volume 10.7 9.4-12.3 - fL Neutrophils Percent Auto 51.4 45-73 - % Imm Gran Pct Auto 0.2 0.0-0.4 - % Lymphocytes Percent Auto 33.9 20-40 - % Monocytes Percent Auto 13.3 H 2-11 - % Eosinophils Percent Auto 0.5 0-4 - % Basophils Percent Auto 0.7 0-2 - % NRBC Pct Auto 0.0 0.0-0.2 - /100WBC Neutrophils Absolute Auto 2.2 2.0-8.3 - x10* 3/uL Imm Gran Abs Auto 0.01 0.00-0.03 - X10*3/uL Lymphocytes Absolute Auto 1.5 1.2-4.9 - X10* 3/uL Monocytes Absolute Auto 0.6 0.1-1.2 - X10*3/ uL Eosinophils Absolute Auto 0.0 0.0-0.4 - X10* 3/uL Basophils Absolute Auto 0.0 0.0-0.2 - X10*3/ uL NRBC Abs Auto 0.000 0.0-0.012 - X10*3/uL L ab:Comprehensive [place]. Panel Fast (Order Date - 12/23/2024) (Collection Date & Time - 12/23/2024 07:45 AM) Value Reference Range Sodium 142 135-145 - mmol/L Bilirubin Total 0.5 0.0-1.0 - mg/dL Aspartate Amino Transferase 40 H 5-31 - U/L Alanine Aminotransferase 22 0-31 - U/L Total Protein 7.9 6.5-8.0 - g/dL Albumin Level 4.2 3.5-5.0 - g/dL Alkaline Phosphatase 95 39-117 - U/L Potassium 4.2 3.3-5.1 - mmol/L Chloride 104 96-108 - mmol/L Carbon Dioxide 30 H 22-29 - mmol/L Anion Gap 12 12-20 - Blood Urea Nitrogen 18 H 9-16 - mg/dL Creatinine 0.79 0.5-1.4 - mg/dL Estimated Glomerular Filt Rate > 60 - Glucose Fasting 87 60-99 - mg/dL Calcium 9.3 8.4-10.2 - mg/dL L ab:Lipid Panel (Order Date - 12/23/2024) (Collection Date & Time - 12/23/2024 07:45 AM) Value Reference Range Triglycerides 75 <150 - mg/dL Cholesterol 211 H <200 - mg/dL LDL Cholesterol Calculated 125 H <100 - mg/dL HDL Cholesterol 71 >40 - mg/dL L ab:Vitamin D 25-OH Total (Order Date - 12/23/2024) (Collection Date & Time - 12/23/2024 07:45 AM) Value Reference Range Vitamin D 25-OH Total 29.8 L >30 - ng/mL * Examination: G eneral Examination: GENERAL APPEARANCE: w ell developed, well nourished, in no acute distress. HEAD: n ormocephalic, atraumatic. EYES: p upils equal, round, reactive to light and accommodation, sclera non-icteric. EARS: n ormal. ORAL CAVITY: m ucosa moist. THROAT: c lear. NECK/THYROID: n leni supple, full range of motion, no cervical lymphadenopathy, no bruits. SKIN: w arm and dry, no suspicious lesions, abnormal with small draining boil in left groin. HEART: r egular rate and rhythm, S1, S2 normal, no murmurs.? LUNGS: c lear to auscultation bilaterally. BREASTS: N o mass, no lump. ABDOMEN: s oft, nontender, nondistended, bowel sounds present, normal, no organomegaly , no masses palpable. RECTAL EXAM: d eclined. FEMALE GENITOURINARY: n ot done. EXTREMITIES: n o clubbing, cyanosis, or edema. NEUROLOGIC: n onfocal, motor strength normal upper and lower extremities, sensory exam intact. Assessment: * Assessment: 1. A nnual physical exam - Z00.00 (Primary) 2 . H idradenitis suppurativa - L73.2 3 . E ssential hypertension - I10 4 . F oreign body (FB) in soft tissue - M79.5 5 . V itamin D deficiency - E55.9 6 .?Depression screening - Z13.31 Plan: * Treatment: 2. H idradenitis suppurativa Notes: is getting better, will continue to monitor 3. E ssential hypertension Continue Losartan Potassium-HCTZ Tablet, 100-25 MG, TAKE 1 TABLET BY MOUTH EVERY DAY. Notes: well controlled, will continue current regiment 4. F oreign body (FB) in soft tissue Notes: is an old stich from her c section that is bothering/ referral to dr riggs 5. V itamin D deficiency Continue Vitamin D3 Capsule, 50 MCG (1999 UT), 1 capsule, Orally, Once a day. Notes: stable, will continue current regiment 6. D epression screening Notes: negative screen 7. O dhara Referral To:Carl Wu Surgery Reason:foreign body Abnormal draining boil in left groin * Procedure Codes: * Follow Up: 6 Months * * Sign off status: Completed true * Provider: Kari Dorado MD Date: 12/31/2024 Generated for Frank ferreira/Josh/Jessitting on: 02/14/2025 05:01 PM EDT History and Physical Notes * HPI (History of Present Illness) Category Sub-Category Detail Notes Category Not es Symptom(s) patient is a 74 yo female here for annual visit with review of recent labs and follow up of chronic issues Depression Screening PHQ-9 Little inte rest or pleasure in doing things: Not at all Feeling down, depressed, or hopeless: No t at all Trouble falling or staying asleep, or sl eeping too much: Not at all Feeling tired or having little energy: N ot at all Poor appetite or overeating: Not at all Feeling bad about yourself o r that you are a failure, or have let yourself or your family down: Not at all Trouble concentrating on thi ngs, such as reading the newspaper or watching television: Not at all Moving or speaking so slowly that other people could have noticed; or the opposite, being so fidgety or restless that you have been moving around a lot more than usual: Not at all Thoughts that you would be b kerry off or of hurting yourself in some way: Not at all Total Score: 0 Interpretation and Intervention Depression [place] wu Findings: Negative Follow-Up for Depression: : review of PH Q-9 found negative result, no follow-up needed SDOH Questions SDOH Questions In the past year have you been worried about losing housing?: No In the past year have you or any family members you live with been unable to get any of the following when it was really needed? Check all that apply:: None Fall Risk History Have you had any falls with injury i n the past year?: No Have you had two or more falls in the st year?: No Communication Needs Communication Needs Does the patient have a hearing impairment: No Does the patient have a vision impairmen t?: Yes If yes, what is the vision impairment?: Glasses Does the patient have a cognition impair ment?: No Examination Category Sub-Category Detail Notes Category Not es General Examination GENERAL APPEARANCE: well dev eloped, well nourished, in no acute distress HEAD: normocephalic, atrau matic EYES: pupils equal, round, reactive to light and accommodation, sclera non-icteric EARS: normal THROAT: clear NECK/THYROID: neck supple, full ra nge of motion, no cervical lymphadenopathy, no bruits HEART: regular rate and rhy thm, S1, S2 normal, no murmurs LUNGS: clear to auscultatio n bilaterally ABDOMEN: soft, nontender, non distended, bowel sounds present, normal, no organomegaly , no masses palpable NEUROLOGIC: nonfocal, motor stre ngth normal upper and lower extremities, sensory exam intact SKIN: warm and dry, no raymon picious lesions, abnormal with small draining boil in left groin EXTREMITIES: no clubbing, cyanosi s, or edema BREASTS: No mass, no lump RECTAL EXAM: declined FEMALE GENITOURINARY: not done ORAL CAVITY: mucosa moist Consultation Request Notes Referral Date Referring Provider Referred Provider Not es 12/31/2024 Yuriy Dorado Francis foreig n body Abnormal draining boil in left groin
--- NOTE | 2025-02-14 12:51 | MHC.OFFVIS ---
Vital Signs 02/14/25 13:04 Height 5 ft 4 in Weight 230 lb BMI 39.5 BP 176/73 H Blood Pressure Location Rt brachial Position Sitting Pulse 97 Intake Visit Reasons: abnormal drainage (L) Groin Intake Note: Patient is seen in office for evaluation and treatment of an abdominal draining- boil in left groin. Pt c/o: states abscess on left upper groin has been flaring on and off for the past 5yrs. At the moment not oozing, just feels like a bump. 2nd concern: new abscess on Rt axilla. Takes Doxycycline 100mg bid, Clindamycin lotion as needed. Client Service And Consulting Manager Required: No Accompanied by: Self / Same As Patient Allergies aloe (Aloe) Allergy (Severe, Verified 02/14/25 13:03) swelling,redness, itching, rash latex (Latex) Allergy (Severe, Verified 02/14/25 13:03) swelling, redness, itching, rash Penicillins Allergy (Severe, Verified 02/14/25 13:03) Anaphylaxis clindamycin (CLINDAMYCIN) Allergy (Intermediate, Verified 02/14/25 13:03) HIVES, SWELLING, ITCHY hydrocodone (HYDROCODONE) Allergy (Intermediate, Verified 02/14/25 13:03) HIVES, SWELLING, ITCHING peanut (Peanut) Allergy (Intermediate, Verified 02/14/25 13:03) hives, itching,rash Sulfa (Sulfonamide Antibiotics) Allergy (Intermediate, Verified 02/14/25 13:03) hives,swelling,itching sulfamethoxazole (From BACTRIM) Allergy (Intermediate, Verified 02/14/25 13:03) HIVES, SWELLING, ITCHING trimethoprim (From BACTRIM) Allergy (Intermediate, Verified 02/14/25 13:03) HIVES, SWELLING, ITCHING diltiazem (From Cardizem) Allergy (Verified 02/14/25 13:03) Unknown pantoprazole Allergy (Verified 02/14/25 13:03) Unknown tramadol Allergy (Verified 02/14/25 13:03) Weakness cortisone Allergy (Severe, Uncoded 02/14/25 13:03) Anaphylaxis tyesha, wool, rosalba Allergy (Intermediate, Uncoded 02/14/25 13:03) rash, itching blood presure meds except Diov Allergy (Unknown, Uncoded 02/14/25 13:03) swelling Medication List - Last Reconciled 02/14/25 by Rancho Eddy MD chlorhexidine gluconate 4% (Hibiclens) 1 appl topically 2-3 times weekly, lather in shower, leave on for 1 minute before rinsing; 2 weeks doxycycline hyclate 100 mg PO BID losartan-hydrochlorothiazide 100-25 mg 1 tab PO DAILY polyethylene glycol 3350 (Miralax) 17 grams PO DAILY PRN 30 days HPI Comments Details: 74-year-old female patient presenting with complaints of an infected cyst of the left upper inner thigh. This occurred approximately 1 month ago when it suddenly became quite large and painful. She was evaluated in the emergency department and an a drainage procedure performed. Subsequent to this, the lesion decreased in size is now hard but no longer painful. She denies any bleeding or discharge currently. She does have a history of hidradenitis and currently is treating an open wound in the right axilla which he feels is improving. She denies any significant pain, fever or chills. [facility] Medical History Hx of cardiac murmur Hidradenitis suppurativa Personal history of COVID-19 Stasis dermatitis Constipation Arthritis Lumbar disc disease HTN (hypertension) Low back pain Surgical History History of excision of pilonidal cyst History of esophagogastroduodenoscopy (EGD) Hx of colonoscopy History of hip replacement Hx of section Hx of bilateral breast reduction surgery H/O removal of cyst Family History Mother Diabetes Son Diabetes Brother Diabetes Social History Household Members: Family Household Members Other:: son Housing: House Are you a primary care administrative tech to a significant other at home: No Do you presently have visiting nurse or other home services: No Alcohol intake: never Comment: aware of trip hazard Patient Tobacco Use Status: Never used Tobacco service: No Current occupational status: disabled Review of Systems Const All systems reviewed & are unremarkable except as noted in HPI and below Physical Exam Vital Signs: Last Vital Signs Pulse 97 02/14/25 13:04 BP 176/73 H 02/14/25 13:04 BMI result Body Mass Index 39.5 Const General: no acute distress Nutritional Appearance: well nourished Orientation/consciousness: patient oriented x3 Limitations: ambulation with cane Chest Chest/axillae images:  1. Area of hidradenitis without underlying abscess. Chronic scar tissue noted. Resp Effort & Inspection: normal respiratory effort, no audible wheezes, no cough and no respiratory distress GI Inspection: Yes normal to inspection and Yes Abdominal panniculus present Palpation (GI): Soft to palpation, nontender, no guarding and not rigid Skin Other: Warm, dry, no rash Neuro General: patient oriented x3 Extrem Other: Left upper inner thigh with an apparent cystic collection measuring approximately 1.5 cm in diameter. The lesion is completely healed without fluctuance or erythema. No discharge is noted. Upper/lower leg/hip images:  1. 1.5 cm cystic lesion left upper inner thigh. Assessment & Plan Assessment & Plan (1) Hidradenitis suppurativa: Code(s): L73.2 - Hidradenitis suppurativa Category: Medical Plan 74-year-old female patient with a recent abscess of the left upper inner thigh treated in the emergency department. She now reports that the lesion is much improved with no open wound or discharge. On examination there is a 1.5 cm round cystic type lesion, nontender to palpation and non fluctuant currently. The option of surgical excision versus continued observation was reviewed. I recommended continued observation as the lesion is now completely healed. She expressed understanding and agrees with the plan. I also suggested Hibiclens scrub to help reduce recurrences of the hidradenitis. She should follow up as needed. Medications: New chlorhexidine gluconate 4% (Hibiclens) 1 appl topically 2-3 times weekly, lather in shower, leave on for 1 minute before rinsing; 473 mL 4RF 2 weeks L73.2 - Hidradenitis suppurativa Coding Level of Care Code New Pt Level 4 (40272) Diagnoses Hidradenitis suppurativa L73.2
[2025-02-14 13:04] VITALS: BP 176/73; PULSE 97; BMI 39.5
--- OUTSIDE RECORDS SUMMARY | 2025-02-14 17:01 | XMS_ITS | Patient Health Record ---
Author Organization Yuriy Dorado MD Address [address] [place], [place] [id number] Care Team Providers Care Hide Inspector And Sorter Name Role Phone Yuriy Dorado Primary Care Provider Allergies Allergen (clinical drug ingredient) Drug/Non Drug Allergy documented on EMR Reaction Allergy Type Onset Date Status tramadol Tramadol unconscious Drug Allergy Activ e cortisone Cortisone rash and itching Drug Allergy Active 12 Hour Nasal [place] Unknown Drug Allergy Active aloe (uncoded) rash and swelling Allergy Active Penicillin rash and trouble breatihing Drug Allergy Active morphine Morphine was not able to talk Drug Allergy Active Results Component Value Reference Range Notes Complete Blood Count Auto Di ff Reviewed date:12/23/2024 05:03:21 PM Interpretation: Performing Lab:[facility], [address] [place] [phone] Notes/Report: White Blood Count 4.3 4.8-10.8 X10*3/uL [...] 0.0-0.2 /100WBC Neutrophils Absolute Auto 2.2 2.0-8.3 x10*3/uL Imm Gran Abs Auto 0.01 0.00-0.03 X10*3/uL Lymphocytes Absolute Auto 1.5 1.2-4.9 X10*3/uL Monocytes Absolute Auto 0.6 0.1-1.2 X10*3/uL Eosinophils Absolute Auto 0.0 0.0-0.4 X10*3/uL Basophils Absolute Auto 0.0 0.0-0.2 X10*3/uL NRBC Abs Auto 0.000 0.0-0.012 X10*3/uL Comprehensive [place]. Panel Fa st Reviewed date:12/23/2024 05:03:41 PM Interpretation: Performing Lab:[facility], [address] [place] [phone] Notes/Report: Sodium 142 135-145 mmol/L Potassium 4.2 3.3-5.1 mmol/L Slight Hemolysis.Interpret result with caution. Chloride 104 96-108 mmol/L [...] Panel Reviewed date:12/23/2024 12:32:43 PM Interpretation: Performing Lab:[facility], [address] [place] [phone] Notes/Report: Triglycerides 75 <150 mg/dL Desirable Triglyceride: [...] Total Reviewed date:12/23/2024 12:32:34 PM Interpretation: Performing Lab:[facility], [address] [place] [phone] Notes/Report: Vitamin D 25-OH Total 29.8 >30 [...] confirmed with another method such as LC-MS/MS. UA ClnCatch+Micro w/rflx Cul t Reviewed date:12/23/2024 05:04:02 PM Interpretation: Performing Lab:[facility], [address] [place] [phone] Notes/Report: [id number] Urine, Clean Catch Color Urine Yellow Appearance Urine Clear PH 7.5 5.0-9.0 Glucose Urine UA Negative Negative mg/dL Urine Blood Negative Negative Specific [place] - Urine 1.010 1.005-1.025 Urine Protein Negative Neg-Trace mg/dL Urine Ketones Negative Negative mg/dL Nitrite Urine Negative Negative Leukocyte Esterase Urine Trace Negative RBC Urine 0-2 0-2 /HPF WBC Urine 0-5 0-5 /HPF Squamous Epithelial Cell Urine 3-5 0-2 /HPF Bacteria Urine None Seen None Seen Hyaline Casts Urine 0-2 0-2 /LPF MM tomosynthesis screening B I Reviewed date:03/04/2024 04:21:29 PM Interpretation: Performing Lab: Notes/Report: [address] [place] [address] Mammography Report Signed Patient: Saima Lucia MR#: [id number] : 1950 Acct:[id number] Age/Sex: 73 / F ADM Date: 02/23/24 Loc: HO.MAMMO Attending Dr: Yuriy Dorado MD Ordering Physician: Yuriy Dorado MD Results: 2Be nign Findings Date of Service: 02/23/24 Follow Up: 1 Year From [facility] Mammogram Procedure(s): MM tomosynthesis screening BI Accession Number(s): [id number] cc: Yuriy Dorado MD EXAMINATION: MM SCREENING [...] 01:43 PM EDT RP Dictated By: Serenity Garza DO Signed By: <Electronically signed by Serenity Garza DO in OV> 03/04/24 1343 DD/ 1005 TD/TT: 02/23/24 1040 Science Editor: Krant[facility] [address] [place] [address] Mammography Report Signed Patient: Saima Lucia MR#: [id number] : 1950 Acct:[id number] Age/Sex: 73 / F ADM Date: 02/23/24 Loc: HO.MAMMO Attending Dr: Yuriy Dorado MD Ordering Physician: Yuriy Dorado MD Results: 2Be nign Findings Date of Service: 02/23/24 Follow Up: 1 Year From [facility] Mammogram Procedure(s): MM tomosynthesis screening BI Accession Number(s): [id number] cc: Yruiy Dorado MD EXAMINATION: MM SCREENING DIGITAL BREAST [...] 01:43 PM EDT RP Dictated By: Serenity Garza DO Signed By: <Electronically signed by Serenity Garza DO in OV> 03/04/24 1343 DD/ 1005 TD/TT: 02/23/24 1040 Science Editor: Reason For Referral Reason ADHESIVE CAPSULITIS OF [...] 02:49:30 PM EST > recieved message from [facility] they want her to go to a foot doctor. Call patient with above info, she will looked in maybe being seen at [facility] Amish Annette 05/14/2024 10:55:34 AM EST > let message for patient to call , Yaneth Wellington 05/28/2024 11:20:24 AM EST > left another message regarding referral, Yaneth Wellington 06/15/2024 11:19:50 AM > left another message for patient regarding referral, Yaneth Wellington 06/15/2024 03:20:37 PM > patient is aware of appt seeing Dr. Hernandez Referral Priority Routine Referral Appointment Date 07/15/2024 Reason foreign body Abnor mal draining boil in left groin Diagnosis 1 Residual foreign bod y in soft tissue (M79.5) Referral Organization Yuriy Dorado MD Referring Provider First Name Yuriy Referring Provider Last Name Estrada Referring Provider Speciality Internal M edicine Referred Provider Carl Wu Referred Provider Specialty Surgery General Notes Yaneth Wellington 0 01/03/2025 10:14:02 AM >info faxed, Yaneth Wellington 01/03/2025 11:54:34 AM >called patient with info and mailed Referral Priority Routine Referral Appointment Date 02/14/2025 Medications Medication SIG (Take, Route, Frequency, Duration) Notes Start Date End Date Status Vitamin D3 50 MCG (1999 UT) 1 capsule Orally Once a day Active Furosemide 20 MG TAKE 1 TABLET BY TYE TH ONCE A DAY NEEDED FOR EDEMA for 30 Not-Taking Losartan Potassium-HCTZ 100-25 MG TAKE 1 TABLET BY MOUTH EVERY DAY Active Senna 8.6 MG 2 tablets at bedtime as needed Orally Once a day for 30 day(s) Not-Taking oxyCODONE HCl 5 MG 1 tablet as needed Orally every 6 hrs Not-Taking Pantoprazole Sodium 40 MG 1 tablet Orall y Once a day for 30 day(s) Not-Taking Calcium 600 MG 1 tablet with meals Orally Once a day Active Doxycycline Hyclate 100 MG TAKE 1 CAPSULE BY MOUTH TWICE A DAY for 90 Active Iron (Ferrous Sulfate) 325 (65 Fe) MG 1 tablet Orally twice a month for 30 days Active Tylenol 8 Hour Arthritis Pain 650 MG 2 tablets as needed Orally every 8 hrs Active MiraLax 17 GM/SCOOP 1 scoop mixed with 8 ounces of fluid Orally Once a day Active Vitamin B12 1000 MCG 1 tablet Orally Onc e a day for 30 day(s) Active Centrum Silver - as directed Orally Active Immunizations Vaccine Route Administration Date Status Comme nts Fluarix Quadrivalent IM Intramuscular 04/20/2019 Administe red Shingrix Unknown 02/25/2018 Administered [facility] Shingrix Unknown 08/25/2018 Administered [facility] PPSV23 (Pnemovax) Unknown 08/06/[address] [facility] TDaP Unknown 04/02/2017 Administered [facility] Prevnar 13 Unknown 06/02/2018 Administered Pt states th at she had it in [place]. Covid Vaccine Unknown 10/04/2020 Administered Pfizer Fluarix [...] Problem Status W/U Status Risk Notes Problem 927239978 Thyroid nodule (E04.1) Active confirmed Problem Constipation (00378836) Constipation (K59.00) Active confirmed Problem 32157194 Vitamin D deficiency (E55.9) Active confirmed Problem 72580943 Hidradenitis suppurativa (L73.2) Active confirmed Problem 576952569 Other specified menopausal and perimenopausal disorders (N95.8) Active confirmed Problem Arthritis (1934412) Arthritis (M19.90) Active c onfirmed Problem 587548252 Lumbar disc disease (M51.9) Active confirmed Problem 88590037 Essential hypertension (I10) Active confirmed Problem Stasis dermatitis (14277279) Stasis dermatitis (I83.10) Active confirmed Problem 16048504 Hip arthritis (M16.10) Active confirmed Problem 911940077652496292 History of COVID-19 (Z86.16) Active confirmed Problem 779902875 Thrombocytopenic (D69.6) Active confirmed Problem 02089778 Concussion syndrome (F07.81) Active confirmed Problem 278425022 Empty sella syndrome (E23.6) Active confirmed Vital Signs Blood pressure diastolic 70 mm Hg 12/31/2024 juana ght is up 14 pounds since 07-13-24 Height 62 in 12/31/2024 weight is up 14 pounds since 07-13-24 Blood pressure systolic 138 mm Hg 12/31/2024 weig ht is up 14 pounds since 07-13-24 Weight 224 lbs 12/31/2024 weight is up 14 pounds since 07-13-24 BMI 40.97 kg/m2 12/31/2024 weight is up 14 pounds since 07-13-24 Encounters Encounter Location Date Provider Diagnosis Yuriy Dorado MD [address] [place] [id number] 12/23/2024 Yuriy Dorado Blood tests for rout ine general physical examination Z00.00 ; Essential hypertension I10 ; Vitamin D deficiency E55.9 and Thrombocytopenic D69.6 Yuriy Dorado MD [address] [place] [id number] 02/26/2024 Yuriy Dorado Concussion syndrome F07.81 ; Adhesive capsulitis of right shoulder M75.01 and Encounter for immunization Z23 Yuriy Dorado MD [address] [place] [id number] 03/11/2024 Yuriy Dorado Empty sella syndrome E23.6 Yuriy Dorado MD [address] [place] [address] [id number] 07/13/2024 Yuriy Dorado Essential hypertensi on I10 and Arthritis M19.90 Yuriy Dorado MD [address] [place] [id number] 12/31/2024 Yuriy Dorado Annual physical exam Z00.00 ; Hidradenitis suppurativa L73.2 ; Essential hypertension I10 ; Foreign body (FB) in soft tissue M79.5 ; Vitamin D deficiency E55.9 and Depression screening Z13.31 Yuriy Dorado MD [address] [place] [address] [id number] 02/26/2024 Yuriy Dorado MD [address] [place] [address] [id number] 05/03/2024 Yuriy Dorado MD [address] [place] [address] [id number] 2024 Yuriy Dorado MD [address] [place] [address] [id number] 02/28/2024 Yuriy Dorado MD [address] [place] [address] [id number] 03/17/2024 Yuriy Dorado MD [address] [place] [address] [id number] 03/22/2024 Yuriy Dorado MD [address] [place] [address] [id number] 04/06/2024 Yuriy Dorado MD [address] [place] [address] [id number] 04/19/2024 Yuriy Dorado MD [address] [place] [address] [id number] 04/29/2024 Yuriy Dorado MD [address] [place] [address] [id number] 05/31/2024 Yuriy Dorado Assessments Encounter Date Diagnosis (ICD Code) Assessment Notes Treatment Notes Treatment Clinical Notes Section Notes 12/23/2024 Blood tests for routine general physical examination (ICD-10 - Z00.00) 02/26/2024 Concussion syndrome (ICD-10 - F07.81) pendng [...] with good reading, will contonue current regiment 12/31/2024 Annual physical exam (ICD-10 - Z00.00) labs reviewed and discussed with patient 12/31/2024 Hidradenitis suppurativa (ICD-10 - L73.2) is getting better, will continue to monitor 12/23/2024 Essential hypertension (ICD-10 - I10) 02/26/2024 Encounter for immunization (ICD-10 - Z23) flu vaccine administered 07/13/2024 Arthritis (ICD-10 - M19.90) has some shoulder arthritis but is allergic to cortisone, will continue to monitor 12/31/2024 Essential hypertension (ICD-10 - I10) well controlled, will continue current regiment 12/23/2024 Vitamin D deficiency (ICD-10 - E55.9) 12/31/2024 Foreign body (FB) in soft tissue (ICD-10 - M79.5) is an old stich from her c section that is bothering/ referral to dr riggs 12/23/2024 Thrombocytopenic (ICD-10 - D69.6) 12/31/2024 Vitamin D deficiency (ICD-10 - E55.9) stable, will continue current regiment 12/31/2024 Depression screening (ICD-10 - Z13.31) negative screen Plan Of Treatment Pending Test Test Name Order Date Electrocardiogram (EKG) 07/29/2019 MRI BRAIN W&WO CONTRAST 03/11/2024 MAMMOGRAM DIGITAL BILATERAL SCREEN 07/29 US THYROID BIOPSY FNA GUIDE 08/18/2023 MM tomosynthesis screening BI 10/05/2020 XR DEXA axial skeleton 10/05/2020 MR head/brain wo con 02/26/2024 US thyroid 07/31/2023 Next Appt Details Provider Name:Yuriy farrar, 07/04/2025 09:00:00 AM, [address] [place] [address], [address], [place], [place], [phone], Provider Name:Yuriy farrar, 12/29/2025 07:15:00 AM, [address] [place] [address] Drive, [address], [place], [place], [phone], Provider Name:Yuriy farrar, 01/05/2026 11:00:00 AM, [address] [place] [address], [address], [place], [place], [phone], Insurance Providers Payer Name Payer Address Payer Phone Subscriber Number Group Number Insured Name Patient Relationship to Insured Coverage Start Date Coverage End Date [employer] MED[employer]ARE ADVANTAGE [address] AMANDA BRYAN [id number] Rea Saima Self - patient is the insured [address] [address] [id number] Saima Lucia Self - patient is the insured Medical (General) History Medical History History ICD Code had colonoscopy and endoscop y 07/2017. due in 5 years: Colonoscopy 04/23 repeat 10 years Surgical History Surgery Date(Month/Year) Breast Reduction C Section Classic Rt Hip Replacement I&D Pilonidal Abscess
--- OUTSIDE RECORDS SUMMARY | 2025-02-14 17:01 | XMS_ITS | Clinical Summary ---
Author Organization [address] [facility] Address [address] [place] [address] Phone Care Team Providers Care Coremaking Machine Setter Name Role Phone Yuriy Dorado MD Primary [...] 11/17/2024 9:45 AM EDT Consult General Surgery [facility] [address] [facility] [address] [place] [address] Bereket Ornelas, DO Hidradenitis suppurativa (Primary Dx) from Last 3 Months Surgical History Surgery [...] nts (1 - 1-dose 75+ series) 11/12/2023 Falls Risk Assessment 04/14/2024 Hepatitis C Screening 04/14/2024 Medicare Annual Wellness Visit 04/14/2024 Osteoporosis Screening (Bone Density Screening) 04/14/2024 Social Influencers of Health Screening 04/14/2024 Depression Screening 06/02/2024 COVID-19 Vaccine ( - 2023-2 5 season) 2025 Influenza Vaccine (#1) 2025 HIB Vaccines Aged [...] on patient's age to complete this topic Insurance [employer] MEDICARE ADVANTAGE Care Teams Coremaking Machine Setter Relationship Specialty Start Date End Date Yuriy Dorado MD [address] [place] [address] [phone] PCP - General Internal Medicine 04/14/24
== END 2025-02-14 13:34 | disposition home or self-care (01) ==
LOC: HO.HGS 12:21
PROVIDERS: PCP Internal Medicine; Referring Provider Internal Medicine; Visit Provider Surgery
DX: L73.2 Hidradenitis suppurativa (principal)
CPT/HCPCS: 99204

== ENCOUNTER → 2025-02-14 12:21 | Outpatient (BNVA) | payer MEDICARE, MEDICAID, SELFPAY | PROVIDERS: PCP Internal Medicine; Referring Provider Internal Medicine; Visit Provider Surgery | DX: L73.2 Hidradenitis suppurativa (principal) | CPT/HCPCS: 99202 ==

== ENCOUNTER 2025-03-22 12:01 | Outpatient (AMB) | payer MEDICARE, MEDICAID, SELFPAY ==
--- OUTSIDE RECORDS SUMMARY | 2024-04-06 10:57 | XMS_ITS ---
Author Organization Yuriy Dorado MD Address [address] [place] [phone] Care Team Providers Care Crop Or Grain Farmworker Name Role Phone Yuriy Dorado Primary Care Provider [phone] REASON FOR VISIT New Referral Request Encounters Encounter Location Date Provider Diagnosis Yuriy Dorado MD 10 [facility] [address] [place] [id number] 04/06/2024 Yuriy Dorado Plan Of Treatment Next Appt Details Provider Name:Yuriy Bourgeois ieana lilia, 07/04/2025 09:00:00 AM, [address] [place] [address], [address] [place] [address], [id number], Provider Name:Yuriy Bourgeois ier, 12/29/2025 07:15:00 AM, [address] [place] [address], [address] [place] [address], [id number], Provider Name:Yuriy farrar, 01/05/2026 11:00:00 AM, [address] [place] [address], [address], [phone], Progress Notes * Bernard LUCIAOB: 9 (73 yo F)Acc No.[id number]:04/06/2024 Patient: Saima Cloud :1950 A ge:73 Y S ex:Female Address:[address] [place] [address] ISAIAH jay, [id number] * true * Date: Generated for Frank ferreira/Josh/Virginiasmitting on: 03:27 PM EDT
--- OUTSIDE RECORDS SUMMARY | 2024-04-19 09:15 | XMS_ITS ---
Author Organization Yuriy Dorado MD Address [address] [place] [phone] Care Team Providers Care Regulatory Affairs Assistant Name Role Phone Yuriy Dorado Primary Care Provider [phone] REASON FOR VISIT Information to send out Encounters Encounter Location Date Provider Diagnosis Yuriy Dorado MD 10 [facility] [address] [place] [id number] 04/19/2024 Yuriy Dorado Plan Of Treatment Next Appt Details Provider Name:Yuriy Bourgeois ier, 07/04/2025 09:00:00 AM, [address] [place] [address], [address] [place] [address], [id number], Provider Name:Yuriy Bourgeois ier, 12/29/2025 07:15:00 AM, [address] [place] [address], [address] [place] [address], [id number], Provider Name:Yuriy farrar, 01/05/2026 11:00:00 AM, [address] [place] [address], [address], [phone], Progress Notes * Bernard LUCIAOB: 9 (73 yo F)Acc No.[id number]:04/19/2024 Patient: Saima Cloud :1950 A ge:73 Y S ex:Female Address:[address] [place] [address] ISAIAH jay, [id number] * true * Date: Generated for Frank ferreira/Josh/Virginiasmitting on: 03:26 PM EDT
--- OUTSIDE RECORDS SUMMARY | 2024-05-03 06:39 | XMS_ITS ---
Author Organization Yuriy Dorado MD Address [address] [place] [phone] Care Team Providers Care Section Beamer Name Role Phone Yuriy Dorado Primary Care Provider [phone] REASON FOR VISIT Urgent Care Visit rec'd Encounters Encounter Location Date Provider Diagnosis Yuriy Dorado MD 10 [facility] [address] [place] [id number] 05/03/2024 Yuriy Dorado Plan Of Treatment Next Appt Details Provider Name:Yuriy Bourgeois ier, 07/04/2025 09:00:00 AM, [address] [place] [address], [address] [place] [address], [phone], Provider Name:Yuriy Bourgeois ier, 12/29/2025 07:15:00 AM, [address] [place] [address], [address] [place] [address], [phone], Provider Name:Yuriy farrar, 01/05/2026 11:00:00 AM, [address] [place] [address], [address] [place] [address], [id number], Progress Notes * Bernard LUCIAOB: 9 (73 yo F)Acc No.[id number]:05/03/2024 Patient: Saima Cloud :1950 A ge:73 Y S ex:Female Address:[address] [place] [address] ISAIAH jay, [id number] * true * Date: Generated for Frank ferreira/Josh/eTransmitting on: 03:26 PM EDT
--- OUTSIDE RECORDS SUMMARY | 2024-05-31 08:15 | XMS_ITS ---
Author Organization Yuriy Dorado MD Address [address] [place] [phone] Care Team Providers Care Aluminizer Name Role Phone Yuriy Dorado Primary Care Provider [phone] REASON FOR VISIT Foot Doctor Encounters Encounter Location Date Provider Diagnosis Yuriy Dorado MD 10 [facility] [address] [place] [phone] 05/31/2024 Yuriy Dorado Plan Of Treatment Next Appt Details Provider Name:Yuriy Bourgeois ieana lilia, 07/04/2025 09:00:00 AM, [address] [place] [address], [address], [phone], Provider Name:Yuriy Bourgeois ier, 12/29/2025 07:15:00 AM, [address] [place] [address], [address], [phone], Provider Name:Yuriy farrar, 01/05/2026 11:00:00 AM, [address] [place] [address], [address], [phone], Progress Notes * Bernard LUCIAOB: 9 (73 yo F)Acc No.[id number]:05/31/2024 Patient: Saima Cloud :1950 A ge:73 Y S ex:Female Address:[address] [place] [address] ISAIAH jay, [address] * true * Date: Generated for Frank ferreira/Josh/eTatifsmitting on: 03:25 PM EDT
--- OUTSIDE RECORDS SUMMARY | 2024-07-13 10:00 | XMS_ITS ---
Author Organization Yuriy Dorado MD Address [address] [place], [place] [phone] Care Team Providers Care Poll Watcher Name Role Phone Yuriy Dorado Primary Care Provider Allergies Allergen (clinical drug ingredient) Drug/Non Drug Allergy documented on EMR Reaction Allergy Type Onset Date Status tramadol Tramadol unconscious Drug Allergy Activ e cortisone Cortisone rash and itching Drug Allergy Active 12 Hour Nasal [place] Unknown Drug Allergy Active aloe (uncoded) rash [...] Location Date Provider Diagnosis Yuriy Dorado MD [address] [place] [address] [place] [phone] 07/13/2024 Yuriy Dorado Essential hypertension I10 and [...] Details Provider Name:Yuriy farrar, 07/04/2025 09:00:00 AM, [address] [place] [address], [address], [place], [place], [phone], Provider Name:Yuriy farrar, 12/29/2025 07:15:00 AM, [address] [place] [address], Suite [facility], [place], [place], [phone], Provider Name:Yuriy farrar, 01/05/2026 11:00:00 AM, [address] [place] [address], [address], [place], [phone], Progress Notes * Bernard LUCIAOB: 9 (73 yo F)Acc No.[id number]:07/13/2024 Progress Notes Patient: Saima JULIAN Provider: Kari Dorado MD :1950 A ge:73 Y S ex:Female Date:07/13/2024 Address:[address] [place] [address] [facility] [id number] Subjective: * Chief Complaints: * 6 MO [...] swellingCortisone: rash and itchingPenicillin: rash and trouble [id number] Hour Nasal SprayTramadol: unconsciousMorphine: was not able [...] MD Date: 0 07/13/2024 Generated for Frank ferreira/Josh/Bhavik on: 1 03:29 PM EDT History and Physical Notes * [...]
--- OUTSIDE RECORDS SUMMARY | 2024-12-31 09:00 | XMS_ITS ---
Author Organization Yuriy Dorado MD Address [address] [place], [place] [id number] Care Team Providers Care Rda Name Role Phone Yuriy Dorado Primary Care Provider Allergies Allergen (clinical drug ingredient) Drug/Non Drug Allergy documented on EMR Reaction Allergy Type Onset Date Status tramadol Tramadol unconscious Drug Allergy Activ e cortisone Cortisone rash and itching Drug Allergy Active 12 Hour Nasal [place] Unknown Drug Allergy Active aloe (uncoded) rash [...] Date Provider Diagnosis Yuriy Dorado MD [address] [place], [place] [phone] 12/31/2024 Yuriy Dorado Annual physical exam Z00.00 [...] Reason: Provider Name:Yuriy farrar, 07/04/2025 09:00:00 AM, [address] [place] [address], [address], [place], [place], [id number], Provider Name:Yuriy farrar, 12/29/2025 07:15:00 AM, [address] [place] [address] Drive, [address], [place], [place], [id number], Provider Name:Yuriy farrar, 01/05/2026 11:00:00 AM, [address] [place] [address], [address], [place], [place], [id number], Progress Notes * Sincere LUCIA: 9 (74 yo F)Acc No.[id number]:12/31/2024 Progress Notes Patient: Saima JULIAN Provider: Kari Dorado MD :1950 A ge:74 Y S ex:Female Date:12/31/2024 Address:[address] [place], [place] [phone] Subjective: * Chief Complaints: * A NNUAL [...] swellingCortisone: rash and itchingPenicillin: rash and trouble [id number] Hour Nasal SprayTramadol: unconsciousMorphine: was not able [...] mg/dL Urine Blood Negative Negative - Specific [place] - Urine 1.010 1.005-1.025 - Urine Protein [...] Auto 0.000 0.0-0.012 - X10*3/uL L ab:Comprehensive [place]. Panel Fast (Order Date - 12/23/2024) (Collection [...] deficiency Continue Vitamin D3 Capsule, 50 MCG (2000 UT), 1 capsule, Orally, Once a day. Notes: stable, will continue current regiment 6. D epression screening Notes: negative screen 7. O dhara Referral To:Carl Wu Surgery Reason:foreign body Abnormal draining boil in left groin * Procedure Codes: * Follow Up: 6 Months * * Sign off status: Completed true * Provider: Kari Dorado MD Date: 0 12/31/2024 Generated for Frank ferreira/Josh/Jessitting on: 03:28 PM EDT History and Physical Notes * [...]
--- NOTE | 2025-03-22 12:03 | A.OFFVIS_ITS ---
Vital Signs 03/22/25 12:27 03/22/25 13:13 Height 5 ft 1 in Weight 230 lb BMI 43.5 BP 198/90 H 180/62 H Blood Pressure Location Lt brachial Lt radial Position Sitting Sitting Respiration 16 Pulse 92 Pulse Source Pulse Oximeter Pulse Oximetry (%) 98 Oxygen Delivery Method Room Air Comment Repeat BP Intake Visit Reasons: [place] Allergies aloe (Aloe) Allergy (Severe, Verified 02/14/25 13:03) swelling,redness, itching, rash latex (Latex) Allergy (Severe, Verified 02/14/25 13:03) swelling, redness, itching, rash Penicillins Allergy (Severe, Verified 02/14/25 13:03) Anaphylaxis clindamycin (CLINDAMYCIN) Allergy (Intermediate, Verified 02/14/25 13:03) HIVES, SWELLING, ITCHY hydrocodone (HYDROCODONE) Allergy (Intermediate, Verified 02/14/25 13:03) HIVES, SWELLING, ITCHING peanut (Peanut) Allergy (Intermediate, Verified 02/14/25 13:03) hives, itching,rash Sulfa (Sulfonamide Antibiotics) Allergy (Intermediate, Verified 02/14/25 13:03) hives,swelling,itching sulfamethoxazole (From BACTRIM) Allergy (Intermediate, Verified 02/14/25 13:03) HIVES, SWELLING, ITCHING trimethoprim (From BACTRIM) Allergy (Intermediate, Verified 02/14/25 13:03) HIVES, SWELLING, ITCHING diltiazem (From Cardizem) Allergy (Verified 02/14/25 13:03) Unknown pantoprazole Allergy (Verified 02/14/25 13:03) Unknown tramadol Allergy (Verified 02/14/25 13:03) Weakness cortisone Allergy (Severe, Uncoded 02/14/25 13:03) Anaphylaxis tyesha, wool, rosalba Allergy (Intermediate, Uncoded 02/14/25 13:03) rash, itching blood presure meds except Diov Allergy (Unknown, Uncoded 02/14/25 13:03) swelling Medication List - Last Reconciled 03/22/25 by Svitlana Fajardo, ANGIE chlorhexidine gluconate 4% (Hibiclens) 1 appl topically 2-3 times weekly, lather in shower, leave on for 1 minute before rinsing; 2 weeks clindamycin phosphate 1% topical BID diclofenac sodium 3% (Solaraze) 1 appl topical BID PRN doxycycline hyclate 100 mg PO BID lidocaine 5% 1 patch topical DAILY PRN 30 days losartan-hydrochlorothiazide 100-25 mg 1 tab PO DAILY polyethylene glycol 3350 (Miralax) 17 grams PO DAILY PRN 30 days HPI Comments Details: Saima is a 74 year old female patient with a past medical history of anemia, hypertension, and constipation who is here today upon referral for headache and neck pain that resulted after a fall. According to the patient today, she had a fall about a year and an half ago where she hit the crown of her head. She was getting ready for yazidism and she turned too quickly and her foot caught on her carpet. She hit her head on the door. She did not loose consiousness but she had severe pain in her head as well as right shoulder pain. Since this fall she has had bilateral neck pain and sharp shooting pain to the right side of her head radiating up her head to the occipital area. This can last several minutes. Over the course of the last month or so she also has been experiencing a feeling of heaviness to the top of her head. When she had this fall she did go to [facility] where she had some imaging comp leted. She notes that there was a bruise to her head from 2017 but there were no new findings. CT head/brain without contrast 07/20/2023 from [facility] notes findings of moderate size posterior right parietal scalp hematoma but without evidence of acute intracranial pathology. CT cervical spine without contrast 07/20/2023 from [facility] notes findings of extensive discogenic degenerative changes with extensive anterior bridging osteophytes consistent with DISH. No evidence of acute fracture or subluxation of the cervical spine. Her neck pain is constant but the pain to the right side of her head only occurs when she moves her neck. She does however have some pain and pressure sensatios to the right retroorbital area. She does not have vision changes to that eye and her eye physician has not noticed changes on her exam. She denies any photophobia, photophobia, or nausea associated with her headaches. Other related background information: Sleep: She reports that she sleept 5-6hours per night and she generally feels rested in the morning. She does admit to intermittent snoring. Stressors: Reports that she does not have any major stressors Hydration:Drinks about 4 8oz glasses per day Caffeine intake: Rare Alcohol intake:None Substance use:None Tobacco use:None Last eye exam:August 2024 Last dental visit: 2022 History of head injury:2023 Past medication trials: None Prior workup: CT head/brain without contrast 07/20/2023 from [facility] notes findings of moderate size posterior right parietal scalp hematoma but without evidence of acute intracranial pathology. CT cervical spine without contrast 07/20/2023 from [facility] notes findings of extensive discogenic degenerative changes with extensive anterior bridging osteophytes consistent with DISH. No evidence of acute fracture or subluxation of the cervical spine. [facility] Medical History (Updated 03/22/25 @ 14:03 by Svitlana Fajardo CNP) Headache Hx of cardiac murmur Hidradenitis suppurativa Personal history of COVID-19 Stasis dermatitis Constipation Arthritis Lumbar disc disease HTN (hypertension) Low back pain Surgical History History of excision of pilonidal cyst History of esophagogastroduodenoscopy (EGD) Hx of colonoscopy History of hip replacement Hx of section Hx of bilateral breast reduction surgery H/O removal of cyst Family History Mother Diabetes Son Diabetes Brother Diabetes Social History Household Members: Family Household Members Other:: son Housing: House Are you a primary acute care nursing assistant to a significant other at home: No Do you presently have visiting nurse or other home services: No Alcohol intake: never Comment: aware of trip hazard Patient Tobacco Use Status: Never used Tobacco service: No Current occupational status: disabled Review of Systems Const All systems reviewed & are unremarkable except as noted in HPI and below Physical Exam Vital Signs: Last Vital Signs Pulse 92 03/22/25 12:27 Resp 16 03/22/25 12:27 BP 198/90 H 03/22/25 12:27 Pulse Ox 98 03/22/25 12:27 Oxygen Delivery Method Room Air 03/22/25 12:27 BMI result Body Mass Index 43.5 Const General: cooperative, healthy appearing, comfortable and no acute distress Nutritional Appearance: well nourished Orientation/consciousness: patient oriented x3 Limitations: no limitations HEENT Head: Yes normal to inspection and Yes normocephalic Eyes General: appearance normal, both eyes and all related structures Visual Goldberg: normal visual goldberg by confrontation Alignment and Position: alignment normal Periorbital: periorbital findings normal Eyelids: Yes eyelids normal Conjunctivae: conjunctivae normal Sclerae: sclerae normal Back/Spine/Pelvis Other: Exquisite tenderness over the right occipital notch and bilateral cervical spinal muscles. She also has some notable trigger points to the upper trapezius muscles on both sides. Cervical Spine: cervical muscular tenderness, pain with cervical ROM, Cervical spine tenderness and cervical ROM abnormal Neuro General: patient oriented x3, tone normal and deep tendon reflexes 2+ bilaterally Cranial nerves: Yes CN's II-XII intact bilaterally and Yes Facial sensation intact/muscles of mastication intact Cognition (Neuro): normal cognition Gait exam (Neuro): Antalgic gait present Motor exam (neuro): 5/5 motor strength present throughout and no tremor noted Sensory Exam: double simultaneous stimulation for sensation normal Romberg Test: Negative Pupils: Normal pupillary reactivity/response: bilateral Psych Appearance: grossly normal Mental Status: mental status grossly normal Speech and movement: Normal speech and movement present and Clear speech present Affect: normal affect Attitude: cooperative Thought process: Normal thought process present Thought content: Normal thought content present Insight: Good insight present (Psych) Judgement: Good judgement present (Psych) Assessment & Plan Assessment & Plan (1) Cervicogenic headache: Code(s): G44.86 - Cervicogenic headache Category: Medical (2) Neck pain: Code(s): M54.2 - Cervicalgia Category: Medical (3) Cervical disc disease: Code(s): M50.90 - Cervical disc disorder, unspecified, unspecified cervical region Category: Medical Plan Saima is a 74 year old female patient with a past medical history of anemia, hypertension, and constipation who is here today upon referral for headache and neck pain that resulted after a fall. Headache patterns and characteristics are consistent with cervicogenic headache with likely right occipital neuralgia. She has an extensive degree of neck pain and has difficulty moving without any precipitation of extreme shooting pains especially to the right side. We reviewed some options in depth including oral therapies such as oral steroids or muscle relaxers which would likely provide some of the past benefit. Unfortunately with her extensive allergy history and sensitivity to medications, she has a lot of reluctant see to try any oral therapies. We discussed alternative options including topical agents, physical therapy, heat therapy, as well as trigger point and occipital nerve blocks. She does have exquisite tenderness on exam. I do think that trigger point and occipital nerve blocks would benefit her greatly however it may be best to try some less invasive modalities 1st including heat therapy, physical therapy and utilization of topical agents for pain control. I will see her back in about 2 months. Of note, I do also recommend C-spine MRI however based on her level of pain, it may not be a test that is well tolerated. She also has some reluctance see to do an MRI of the cervical spine because she notes that in the past with sitting still in certain positions she has developed ?cysts?. I think however revisiting a cervical spine MRI is necessary moving forward. -heat therapy -diclofenac gel -lidocaine patches -physical therapy -consider trigger point and occipital nerve blocks Orders: Orders PT Evaluation and Treatment Today G44.86 - Cervicogenic headache, M50.90 - Cervical disc disorder, unspecified, unspecified cervical region, M54.2 - Cervicalgia Medications: New lidocaine 5% leave on most painful area for up to 12 hrs 1 patch topical DAILY PRN 30 ea 5RF neck pain 30 days diclofenac sodium 3% (Solaraze) 1 appl topical BID PRN 100 grams 5RF neck pain Coding Level of Care Code New Pt Level 4 (04941) Diagnoses Cervicogenic headache G44.86 Neck pain M54.2 Cervical disc disease M50.90
[2025-03-22 12:27] VITALS: BP 198/90; PULSE 92; RESP 16; O2SAT 98; BMI 43.5
[2025-03-22 13:13] VITALS: BP 180/62
--- OUTSIDE RECORDS SUMMARY | 2025-03-22 15:28 | XMS_ITS | Patient Health Record ---
Author Organization Yuriy Dorado MD Address [address] [place], [place] [id number] Care Team Providers Care Housecalls Nurse Name Role Phone Yuriy Dorado Primary Care Provider Allergies Allergen (clinical drug ingredient) Drug/Non Drug Allergy documented on EMR Reaction Allergy Type Onset Date Status tramadol Tramadol unconscious Drug Allergy Activ e cortisone Cortisone rash and itching Drug Allergy Active 12 Hour Nasal [place] Unknown Drug Allergy Active aloe (uncoded) rash and swelling Allergy Active Penicillin rash and trouble breatihing Drug Allergy Active morphine Morphine was not able to talk Drug Allergy Active Results Component Value Reference Range Notes Complete Blood Count Auto Di ff Reviewed date:12/23/2024 05:03:21 PM Interpretation: Performing Lab:[facility], [address] [place] [phone] Notes/Report: White Blood Count 4.3 4.8-10.8 X10*3/uL [...] NRBC Abs Auto 0.000 0.0-0.012 X10*3/uL Comprehensive [place]. Panel Fa st Reviewed date:12/23/2024 05:03:41 PM Interpretation: Performing Lab:[facility], [address] [place] [phone] Notes/Report: Sodium 142 135-145 mmol/L Potassium 4.2 [...] Panel Reviewed date:12/23/2024 12:32:43 PM Interpretation: Performing Lab:[facility], [address] [place] [phone] Notes/Report: Triglycerides 75 <150 mg/dL Desirable Triglyceride: [...] Total Reviewed date:12/23/2024 12:32:34 PM Interpretation: Performing Lab:[facility], [address] [place] [phone] Notes/Report: Vitamin D 25-OH Total 29.8 >30 [...] t Reviewed date:12/23/2024 05:04:02 PM Interpretation: Performing Lab:[facility], [address] [place] [phone] Notes/Report: [id number] Urine, Clean Catch Color Urine Yellow Appearance Urine Clear PH 7.5 5.0-9.0 Glucose Urine UA Negative Negative mg/dL Urine Blood Negative Negative Specific [place] - Urine 1.010 1.005-1.025 Urine Protein Negative Neg-Trace mg/dL Urine Ketones Negative Negative mg/dL Nitrite Urine Negative Negative Leukocyte Esterase Urine Trace Negative RBC Urine 0-2 0-2 /HPF WBC Urine 0-5 0-5 /HPF Squamous Epithelial Cell Urine 3-5 0-2 /HPF Bacteria Urine None Seen None Seen Hyaline Casts Urine 0-2 0-2 /LPF Reason For Referral Reason left foot pain has s purs [...] 02:49:30 PM EST > recie[place] [facility] [place] want [place] to go to a foot doctor. Call patient with above info, she will looked in maybe being seen at [facility] , Yaneth Wellington 05/14/2024 10:55:34 AM EST > let message [...] Referral Priority Routine Referral Appointment Date 02/14/2025 Reason headache with neck p ain Diagnosis 1 Headache, unspecifie d (R51.9) Referral Organization Yuriy Dorado MD Referring Provider First Name Yuriy Referring Provider Last Name Estrada Referring Provider Speciality Internal M edicine Referred Provider Elaine Hernandez Referred Provider Specialty Neurology General Notes Yaneth Wellington 0 02/25/2025 12:39:14 PM > referral info faxedAmish Annette 03/04/2025 03:16:50 PM >was told they will be calling patient to bookAmish Annette 03/04/2025 03:24:07 PM >Patient is aware of appt Referral Priority Routine Referral Appointment Date 03/22/2025 Medications Medication SIG (Take, Route, Frequency, Duration) Notes Start Date End Date Status Doxycycline Hyclate 100 MG TAKE 1 CAPSULE BY MOUTH TWICE A DAY for 90 Active Vitamin D3 50 MCG (1999 UT) 1 capsule Orally Once a day Active Furosemide 20 MG TAKE 1 TABLET BY ONCE A DAY NEEDED FOR EDEMA for [...] with meals Orally Once a day Active Iron (Ferrous Sulfate) 325 (65 Fe) [...] lth PPSV23 (Pnemovax) Unknown 08/06/2017 Administered Spect TOTEMS (formerly Nitrogram) health TDaP Unknown 04/02/2017 Administered [facility] Prevnar 13 Unknown 06/02/2018 Administered Pt states th at she had it in [place]. Covid Vaccine Unknown 10/04/2020 Administered Pfizer Fluarix [...] Problem Status W/U Status Risk Notes Problem 922629695 Thyroid nodule (E04.1) Active confirmed Problem Constipation (33476006) Constipation (K59.00) Active confirmed Problem 05847997 Vitamin D deficiency (E55.9) Active confirmed Problem 77810163 Hidradenitis suppurativa (L73.2) Active confirmed Problem 695074130 Other specified menopausal and perimenopausal disorders (N95.8) Active confirmed Problem Arthritis (4984998) Arthritis (M19.90) Active c onfirmed Problem 205985984 Lumbar disc disease (M51.9) Active confirmed Problem 62790065 Essential hypertension (I10) Active confirmed Problem Stasis dermatitis (36327503) Stasis dermatitis (I83.10) Active confirmed Problem 57590411 Hip arthritis (M16.10) Active confirmed Problem 972160665117018765 History of COVID-19 (Z86.16) Active confirmed Problem 114141654 Thrombocytopenic (D69.6) Active confirmed Problem 68946835 Concussion syndrome (F07.81) Active confirmed Problem 122482220 Empty sella syndrome (E23.6) Active confirmed Vital [...] Yuriy Dorado MD [address] [place] [id number] 12/23/2024 Yuriy Dorado Blood tests for rout ine general physical examination Z00.00 ; Essential hypertension I10 ; Vitamin D deficiency E55.9 and Thrombocytopenic D69.6 Yuriy Dorado MD [address] [place] [id number] 07/13/2024 Yuriy Dorado Essential hypertensi on I10 and Arthritis M19.90 Yuriy Dorado MD [address] [place] [address] [id number] 12/31/2024 Yuriy Dorado Annual physical exam Z00.00 ; Hidradenitis suppurativa L73.2 ; Essential hypertension I10 ; Foreign body (FB) in soft tissue M79.5 ; Vitamin D deficiency E55.9 and Depression screening Z13.31 Yuriy Dorado MD [address] [place] [address] [id number] 05/03/2024 Yuriy Dorado MD [address] [place] [id number] 2024 Yuriy Dorado MD [address] [place] [address] [id number] 03/22/2024 Yuriy Dorado MD [address] [place] [address] [id number] 04/06/2024 Yuriy Dorado MD [address] [place] [address] [id number] 04/19/2024 Yuriy Dorado MD [address] [place] [address] [id number] 04/29/2024 Yuriy Dorado MD [address] [place] [address] [id number] 05/31/2024 Yuriy Dorado MD [address] [place] [address] [id number] 02/24/2025 Yuriy Dorado Assessments Encounter Date Diagnosis (ICD Code) Assessment Notes Treatment Notes Treatment Clinical Notes Section Notes 12/23/2024 Blood tests for routine general physical examination (ICD-10 - Z00.00) 07/13/2024 Essential hypertension (ICD-10 - I10) doing well with good reading, will contonue current regiment 12/31/2024 Annual physical exam (ICD-10 - Z00.00) labs reviewed and discussed with patient 12/31/2024 Hidradenitis suppurativa (ICD-10 - L73.2) is getting better, will continue to monitor 12/23/2024 Essential hypertension (ICD-10 - I10) 07/13/2024 Arthritis (ICD-10 - M19.90) has some [...] thyroid 07/31/2023 Next Appt Details Provider Name:Yuriy Pierretoy ier, 07/04/2025 09:00:00 AM, [address] [place] [address], [address], [place], [place], [id number], Provider Name:Yuriy Arellano Bk ier, 12/29/2025 07:15:00 AM, [address] [place] [address], [address], [place], [place], [phone], Provider Name:Yuriy Bourgeois ier, 01/05/2026 11:00:00 AM, [address] [place] [address], [address], [place], [place], [phone], Insurance Providers Payer Name Payer Address Payer Phone Subscriber Number Group Number Insured Name Patient Relationship to Insured Coverage Start Date Coverage End Date [employer]AGE [address] [place], [place] [id number] Rea Saima Self - patient is the insured [address] [address] [id number] Saima Lucia Self - patient is the insured Medical (General) History Medical History History ICD Code had colonoscopy and endoscop y 07/2017. due in 5 years: Colonoscopy 04/23 repeat 10 years Surgical History Surgery Date(Month/Year) Breast Reduction C Section Classic Rt Hip Replacement I&D Pilonidal Abscess
--- OUTSIDE RECORDS SUMMARY | 2025-03-22 15:29 | XMS_ITS | Data Portability ---
Author Organization [facility], [facility] Address [address] [place] [address] Care Team Providers Care Kiln Stoker Name Role Phone LEVAR DAVIS Referring Provider LEVAR DAVIS Primary Care Provider Assessment Encounter Date Assessment Date Assessment LastModified by Organization Details LastModified Time 10/15/2024 10/15/2024 Assessment: Pt demonstrates small gains when doing AAROM with PT, versus PROM, Increased flexion, but pain at end range. 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 [email or web address] Not available 10/20/2024 10:47:35 10/22/2024 10/22/2024 Assessment: [...] Pain of right shoulder region Active 2023 [facility] 4 10:14:14 Rotator cuff arthropathy of right shoulder [id number] 9106 Active 2023 [facility] 4 10:46:41 Problem Notes None recorded. Procedures Surgical History Date Name Laterality Status Provider Name and Address Organization Details Recorded Time 5 93353 Therapeutic Exercise (1:1) completed Esvin Kowalski, PT [address], [place], [address], [facility] 11/02/2024 07:54:02 5 96381: Manual therapy completed Esvin Kowalski, PT [address], [place], [address], [facility] 11/02/2024 07:54:02 5 68979 Therapeutic Exercise (1:1) cancelled Esvin Kowalski, PT [address], [place], [address], [facility] 10/27/2024 17:30:43 5 82961: Manual therapy cancelled Esvin Kowalski, PT [address], [place], [address], [facility] 10/27/2024 17:30:43 5 30550 Therapeutic Exercise (1:1) completed Esvin Kowalski, PT [address], [place], [address], [facility] 10/26/2024 09:52:13 5 71748: Manual therapy completed Esvin Kowalski, PT [address], [place], [address], [facility] 10/26/2024 09:52:13 5 92441 Therapeutic Exercise (1:1) completed Esvin Kowalski, PT [address], [place], [address], [facility] 10/25/2024 18:30:41 60138: Manual therapy completed Esvin Kowalski, PT [address], [place], [address], [facility] 10/21/2024 13:47:27 5 75113 Therapeutic Exercise (1:1) completed Neda Chavez, GROUP DIRECTOR [address], [place], [address], [facility] 10/20/2024 10:46:52 5 23923: Manual therapy completed Neda Chavez GROUP DIRECTOR [address], [place], [address], [facility] 10/20/2024 10:46:49 41294 Therapeutic Exercise (1:1) completed Neda Chavez GROUP DIRECTOR [address], [place], [address], [facility] 10/14/2024 20:06:26 05209: Manual therapy completed Neda Chavez GROUP DIRECTOR [address], [place], [address], [facility] 10/15/2024 14:10:07 5 70945 Therapeutic Exercise (1:1) completed Esvin Kowalski, PT [address], [place], [address], [facility] 10/12/2024 05:34:12 5 07940: Manual therapy completed Esvin Kowalski, PT [address], [place], [address], [facility] 10/12/2024 05:34:12 5 70081 Therapeutic Exercise (1:1) completed Esvin Kowalski, PT [address], [place], [address], [facility] 10/06/2024 09:58:06 5 81541: Manual therapy completed Esvin Kowalski, PT [address], [place], [address], [facility] 10/06/2024 09:57:59 57006 Therapeutic Exercise (1:1) completed Esvin Kowalski, PT [address], [place], [address], [facility] 10/03/2024 18:11:05 5 77306: Manual therapy completed Esvin Kowalski, PT [address], [place], [address], [facility] 10/04/2024 14:41:06 5 78291 Therapeutic Exercise (1:1) completed Neda Chavez, GROUP DIRECTOR [address], [place], [address], [facility] 09/29/2024 17:19:41 5 53652: Manual therapy completed Neda Chavez, GROUP DIRECTOR [address], [place], [address], [facility] 09/29/2024 17:19:43 5 99486 Therapeutic Exercise (1:1) completed Esvin Kowalski, PT [address], [place], [address], [facility] 09/14/2024 07:52:23 34896: PT re-eval completed Esvin Kowalski, PT [address], [place], [address], [facility] 09/21/2024 15:02:08 5 G8417 BMI Above Upper Parameters, F/U Documented completed Esvin Kowalski, PT [address], [place], [address], [facility] 09/14/2024 15:30:46 5 G8427 Current Medication Documented completed Esvin Kowalski, PT [address], [place], [address], [facility] 09/14/2024 15:30:25 5 88066 Therapeutic Exercise (1:1) completed Neda Chavez, GROUP DIRECTOR [address], [place], [address], [facility] 07/12/2024 17:33:43 5 12412: Manual therapy completed Neda Chavez, GROUP DIRECTOR [address], [place], [address], [facility] 07/12/2024 17:33:43 5 75752 Therapeutic Exercise (1:1) cancelled Esvin Kowalski, PT [address], [place], [address], [facility] 07/08/2024 08:06:32 5 53102: Manual therapy cancelled Esvin Kowalski PT [address], [place], [address], [facility] 07/08/2024 08:06:32 5 48278 Therapeutic Exercise (1:1) completed Neda Chavez PTA [address], [place], [address], [facility] 06/30/2024 09:42:42 5 32593: Manual therapy completed Neda Chavez PTA [address], [place], [address], [facility] 06/30/2024 09:42:42 5 21072 Therapeutic Exercise (1:1) completed Esvin Kowalski, PT [address], [place], [address], [facility] 06/29/2024 07:53:32 5 11922: Manual therapy completed Esvin Kowalski, PT [address], [place], [address], [facility] 06/29/2024 07:53:32 5 87878 Therapeutic Exercise (1:1) completed Neda Chavez, GROUP DIRECTOR [address], [place], [address], [facility] 06/23/2024 19:45:17 17960: Manual therapy completed Neda Chavez, GROUP DIRECTOR [address], [place], [address], [facility] 06/23/2024 19:45:17 5 64806 Therapeutic Exercise (1:1) completed Neda Chavez, GROUP DIRECTOR [address], [place], [address], [facility] 06/17/2024 14:46:45 96746: Manual therapy completed Neda Chavez, GROUP DIRECTOR [address], [place], [address], [facility] 06/17/2024 14:46:54 43571 Therapeutic Exercise (1:1) completed Jona Monzon, PT [address], [place], [address], [facility] 06/14/2024 20:26:20 86465: Low complexity PT Eval completed Jona Laurenser, PT [address], [place], [address], [facility] 06/14/2024 20:26:09 Imaging Results None recorded. Procedure Notes None recorded. Medical Equipment None Reported. Allergies Allergen ID Allergen Name Allergen Category Reaction Reaction Severity Criticality Documentation Date Start Date Code Code System Note Provider Name and Address Organization Details Recorded Time 43973 Glycine max (substanc e) environme nt,food,m edication Not available Not available Not available 08/04/20232010 05536 5007 SNOMED Aller gyRea ction : 'Skin React ion'; Not Available [facility] 4 14:33:25 20132 Product containin g penicilli n (product) medicatio n Not available Not available Not available 08/04/20232010 23581 8001 SNOMED Aller gyRea ction : 'Skin React ion'; Not Available [facility] 4 14:33:26 99460 Norvasc medicatio n Not available Not available Not available 08/04/20232012 [address] [facility] 4 14:33:26 44714 tramadol hydrochlo ride medicatio n Not available Not available Not available 08/04/20232022 [address] [facility] 4 14:33:26 83169 acetamino phen / hydrocodo ne medicatio n Not available Not available Not available 08/04/20232012 [address] [facility] 4 14:33:26 83711 latex environme nt,medica tion Not available Not available Not available 08/04/20232012 [address] [facility] 4 14:33:26 Medications Name Sig Start Date [...] Diagnosis SNOMED-CT Code Diagnosis ICD10 Code Diagnosis IMO Codes Diagnosis Note [id number] AMANDEEP Malave [address] [place] [address] 08/15/2023 14:49:00 09/06/2023 06:19:27 Knee joint prosthesis present 9832351857 02 Z96.651 Hip joint prosthesis present 708478044 Z96.803 7892848 AMANDEEP Malave [address] [place] [address] 04/07/2024 09:48:14 05/05/2024 09:16:08 Pain of right shoulder region 5803758549 M25.511 04395804 Rotator cu ff arthropathy of right shoulder 6586495081 4840529 M12.811 8483282661 [id number] Jona Monzon, PT [facility] [address] [place] [address] 06/15/2024 10:24:52 06/15/2024 11:59:38 Rotator cuff arthropathy of right shoulder 0191606814 2269509 M12.811 0775311750 [id number] Neda Chavez, GROUP DIRECTOR [facility] [address] [place] [address] 06/17/2024 13:22:55 06/17/2024 14:23:59 Rotator cuff arthropathy of right shoulder 4749745284 5709623 M12.811 6924652371 0042327 Neda Chavez, GROUP DIRECTOR [facility] [address] [place] [address] 06/24/2024 12:39:51 06/24/2024 13:34:01 Rotator cuff arthropathy of right shoulder 1705464194 1247215 M12.811 9225556814 [id number] Esvin Kowalski, PT [facility] [address] [place] [address] 06/29/2024 09:40:25 06/29/2024 10:19:10 Rotator cuff arthropathy of right shoulder 0601467652 8705926 M12.811 9863459003 [id number] Neda Chavez, GROUP DIRECTOR [facility] [address] [place] [address] 07/01/2024 10:37:42 07/01/2024 11:44:44 Rotator cuff arthropathy of right shoulder 5702100422 3122168 M12.811 1673791938 [id number] Neda Chavez, GROUP DIRECTOR [facility] [address] [place] [address] 07/13/2024 10:09:05 07/13/2024 11:51:18 Rotator cuff arthropathy of right shoulder 9329458981 2205539 M12.811 8495157364 [id number] Esvin Kowalski, PT [facility] [address] [place] [address] 09/14/2024 15:10:44 09/14/2024 16:58:04 Rotator cuff arthropathy of right shoulder 8029910618 2588729 2.811 3929343318 2243109 Neda Chavez, GROUP DIRECTOR [facility] [address] [place] [address] 09/29/2024 16:24:56 09/29/2024 17:16:22 Rotator cuff arthropathy of right shoulder 6194394977 0189627 2.811 3746571104 7350394 Esvin Kowalski, PT [facility] [address] [place] [address] 10/04/2024 13:31:36 10/04/2024 15:01:18 Rotator cuff arthropathy of right shoulder 6185335065 7528032 2.811 0269621115 [id number] Esvin Kowalski, PT [facility] [address] [place] [address] 10/06/2024 08:56:57 10/06/2024 11:09:52 Rotator cuff arthropathy of right shoulder 4589373607 6295175 2.811 4812571345 [id number] Esvin Kowalski, PT [facility] [address] [place] [address] 10/12/2024 14:43:10 10/12/2024 17:34:29 Rotator cuff arthropathy of right shoulder 3415158797 7566603 2.811 6303720264 [id number] Neda Chavez, GROUP DIRECTOR [facility] [address] [place] [address] 10/15/2024 13:19:04 10/15/2024 13:58:45 Rotator cuff arthropathy of right shoulder 7519178199 0350808 2.811 3518383043 [id number] Neda Chavez, GROUP DIRECTOR [facility] [address] [place] [address] 10/20/2024 09:19:18 10/20/2024 10:06:41 Rotator cuff arthropathy of right shoulder 6158615909 9036276 M12.811 3551044162 [id number] Esvin Kowalski, PT [facility] [address] [place] [address] 10/22/2024 09:16:17 10/22/2024 10:06:23 Rotator cuff arthropathy of right shoulder 8925986352 6495380 M12.811 5226254301 9265152 Esvin Kowalski, PT [facility] [address] [place] [address] 10/26/2024 14:09:01 10/26/2024 15:18:49 Rotator cuff arthropathy of right shoulder 4391465948 5811245 M12.811 5334693791 [id number] Esvin Kowalski, PT [facility] [address] [place] [address] 11/02/2024 13:58:52 11/02/2024 15:06:41 Rotator cuff arthropathy of right shoulder 3431665136 7923802 M12.811 [id number] Health Concerns Section Related Observation LastModified by Organization Detai ls LastModified Time None Recorded Concern Status LastModified by Organization Details LastModified Time None Recorded Advance Directives Directive None Recorded Payers Insurance Date Sequence Insurance Name Policy Number Policy Hart Covered Member ID Hart Member ID Guarantor Name 02/10/2025 2 [place] [facility] Saima Lucia [id number] Saima Lucia 10/31/2024 1 [employer] (MEDICARE REPLACEMENT/A DVANTAGE - PPO) [id number] Saima Lucia [id number] Saima Lucia Notes Date Note Type Note Provider Name and Address Organization Details Recorded Time 10/15/2024 text/html Pt states really sore today pain 7/10 both shoulders hurt and both knees are stiff. Neda Chavez, GROUP DIRECTOR [address], [place], [address], [facility] 10/15/2024 14:10:42 10/20/2024 text/html Pt states shoulder about 6/10 today. Neda Chavez, GROUP DIRECTOR [address], [place], [address], [facility] 10/20/2024 10:48:07 10/22/2024 text/html Pt states shoulder about 6/10 today. Esvin Kowalski, PT [address], [place], [address], [facility] 10/25/2024 18:31:56 10/26/2024 text/html Pt states shoulder about 6/10 today. Esvin Kowalski, PT [address], [place], [address], [facility] 10/26/2024 16:27:59 11/02/2024 text/html Pt states shoulder about 5/10 today. Esvin Kowalski, PT [address], [place], [address], [facility] 11/03/2024 04:50:55 OBGyn Episode No OBEpisode recorded.
== END 2025-03-22 13:07 | disposition home or self-care (01) ==
LOC: HO.HSM 12:02
PROVIDERS: PCP Internal Medicine; Visit Provider Nurse Practitioner
DX: G44.86 Cervicogenic headache (principal); M50.90 Cervical disc disorder, unspecified, unspecified cervical region
CPT/HCPCS: 99204

== ENCOUNTER → 2025-03-22 12:01 | Outpatient (BNVA) | payer MEDICARE, MEDICAID, SELFPAY | PROVIDERS: PCP Internal Medicine; Visit Provider Nurse Practitioner | DX: G44.86 Cervicogenic headache (principal); M54.2 Cervicalgia; M54.50 Low back pain, unspecified | CPT/HCPCS: 99202 ==

== ENCOUNTER 2025-04-25 13:24 | Outpatient (AMB) | payer MEDICARE, MEDICAID, SELFPAY ==
--- NOTE | 2025-04-25 13:25 | A.OFFVIS_ITS ---
Vital Signs 04/25/25 13:32 Height 5 ft 1 in Weight 210 lb BMI 39.7 BP 150/65 H Blood Pressure Location Rt brachial Position Sitting Respiration 16 Pulse 87 Pulse Source Pulse Oximeter Pulse Oximetry (%) 98 Oxygen Delivery Method Room Air Intake Visit Reasons: 1 month follow up Flight Attendant Inflight Services Required: No Accompanied by: Son Allergies aloe (Aloe) Allergy (Severe, Verified 04/25/25 13:34) swelling,redness, itching, rash latex (Latex) Allergy (Severe, Verified 04/25/25 13:34) swelling, redness, itching, rash Penicillins Allergy (Severe, Verified 04/25/25 13:34) Anaphylaxis clindamycin (CLINDAMYCIN) Allergy (Intermediate, Verified 04/25/25 13:34) HIVES, SWELLING, ITCHY hydrocodone (HYDROCODONE) Allergy (Intermediate, Verified 04/25/25 13:34) HIVES, SWELLING, ITCHING peanut (Peanut) Allergy (Intermediate, Verified 04/25/25 13:34) hives, itching,rash Sulfa (Sulfonamide Antibiotics) Allergy (Intermediate, Verified 04/25/25 13:34) hives,swelling,itching sulfamethoxazole (From BACTRIM) Allergy (Intermediate, Verified 04/25/25 13:34) HIVES, SWELLING, ITCHING trimethoprim (From BACTRIM) Allergy (Intermediate, Verified 04/25/25 13:34) HIVES, SWELLING, ITCHING diltiazem (From Cardizem) Allergy (Verified 04/25/25 13:34) Unknown pantoprazole Allergy (Verified 04/25/25 13:34) Unknown tramadol Allergy (Verified 04/25/25 13:34) Weakness cortisone Allergy (Severe, Uncoded 02/14/25 13:03) Anaphylaxis tyesha, wool, rosalba Allergy (Intermediate, Uncoded 02/14/25 13:03) rash, itching blood presure meds except Diov Allergy (Unknown, Uncoded 02/14/25 13:03) swelling HPI Comments Details: Saima is a 74 year old female patient with a past medical history of anemia, hypertension, and constipation who is here today for follow up visit for head and neck pain that resulted after a fall. When she had this fall she did go to [facility] where she had some imaging completed. She notes that there was a bruise to her head from 2017 but there were no new findings. CT head/brain without contrast 07/20/2023 from [facility] notes findings of moderate size posterior right parietal scalp hematoma but without evidence of acute intracranial pathology. CT cervical spine without contrast 07/20/2023 from [facility] notes findings of extensive discogenic degenerative changes with extensive anterior bridging osteophytes consistent with DISH. No evidence of acute fracture or subluxation of the cervical spine. Since this fall she has had bilateral neck pain and sharp shooting pain to the right side of her head radiating up her head to the occipital area. This can last several minutes. Over the course of the last month or so she also has been experiencing a feeling of heaviness to the top of her head. Her neck pain is constant but the pain to the right side of her head only occurs when she moves her neck. She does however have some pain and pressure sensatios to the right retroorbital area. She does not have vision changes to that eye and her eye physician has not noticed changes on her exam. She denies any photophobia, photophobia, or nausea associated with her headaches. At the time of our last visit together, I ordered physical therapy, diclofenac gel, and lidocaine patches. We had discussed trigger point and occipital nerve block injections should more conservative measures fail. She unfortunately only received the diclofenac gel which has however helped. She did not get any lidocaine patches as this was not covered by insurance and she never did receive a call from physical therapy. She would like to proceed with the nerve block injections today. She continues to have significant neck and head pain with reduced range of motion. Other related background information: Sleep: She reports that she sleept 5-6hours per night and she generally feels r ested in the morning. She does admit to intermittent snoring. Stressors: Reports that she does not have any major stressors Hydration:Drinks about 4 8oz glasses per day Caffeine intake: Rare Alcohol intake:None Substance use:None Tobacco use:None Last eye exam:August 2024 Last dental visit: 2022 History of head injury:2023 Past medication trials: None Prior workup: CT head/brain without contrast 07/20/2023 from [facility] notes findings of moderate size posterior right parietal scalp hematoma but without evidence of acute intracranial pathology. CT cervical spine without contrast 07/20/2023 from [facility] notes findings of extensive discogenic degenerative changes with extensive anterior bridging osteophytes consistent with DISH. No evidence of acute fracture or subluxation of the cervical spine. [facility] Medical History (Updated 04/25/25 @ 14:06 by Svitlana Fajardo CNP) Headache Hx of cardiac murmur Hidradenitis suppurativa Personal history of COVID-19 Stasis dermatitis Constipation Arthritis Lumbar disc disease HTN (hypertension) Low back pain Surgical History History of excision of pilonidal cyst History of esophagogastroduodenoscopy (EGD) Hx of colonoscopy History of hip replacement Hx of section Hx of bilateral breast reduction surgery H/O removal of cyst Family History Mother Diabetes Son Diabetes Brother Diabetes Social History Household Members: Family Household Members Other:: son Housing: House Are you a primary critical care transport nurse to a significant other at home: No Do you presently have visiting nurse or other home services: No Alcohol intake: never Comment: aware of trip hazard Patient Tobacco Use Status: Never used Tobacco service: No Current occupational status: disabled Review of Systems Const All systems reviewed & are unremarkable except as noted in HPI and below Physical Exam Const General: cooperative, healthy appearing, comfortable and no acute distress Nutritional Appearance: well nourished Orientation/consciousness: patient oriented x3 Limitations: no limitations HEENT Head: Yes normal to inspection and Yes normocephalic Eyes General: appearance normal, both eyes and all related structures Visual Goldberg: normal visual goldberg by confrontation Alignment and Position: alignment normal Periorbital: periorbital findings normal Eyelids: Yes eyelids normal Conjunctivae: conjunctivae normal Sclerae: sclerae normal Back/Spine/Pelvis Other: Exquisite tenderness over the right occipital notch and bilateral cervical spinal muscles. She also has some notable trigger points to the upper trapezius muscles on both sides. Cervical Spine: cervical muscular tenderness, pain with cervical ROM, Cervical spine tenderness and cervical ROM abnormal Neuro General: patient oriented x3 and tone normal Cranial nerves: Yes CN's II-XII intact bilaterally and Yes Facial sensation intact/muscles of mastication intact Cognition (Neuro): normal cognition Gait exam (Neuro): Antalgic gait present Motor exam (neuro): no tremor noted Sensory Exam: double simultaneous stimulation for sensation normal Romberg Test: Negative Pupils: Normal pupillary reactivity/response: bilateral Psych Appearance: grossly normal Mental Status: mental status grossly normal Speech and movement: Normal speech and movement present and Clear speech present Affect: normal affect Attitude: cooperative Thought process: Normal thought process present Thought content: Normal thought content present Insight: Good insight present (Psych) Judgement: Good judgement present (Psych) Office Procedures Nerve Block Details: Bilateral Greater Occipital Nerve block procedure: Laterally: Bilateral Indications: Occipital neuralgia Current allergies and current list of medications were reviewed prior to procedure, verbal consent was obtained, procedure was explained in detail to the patient prior to starting. Time-out was performed prior to procedure. Following universal hygiene protocols, patient's left occipital area was located by drawing a line between the external occipital protuberance and the mastoid process. The greater occipital nerve was located approximately 2/3 along this line maintenance supervisor to the occiput, and corresponded with the point of maximum tenderness. Alcohol was applied topically to the skin. A 27 gauge needle (aspirating during insertion) was inserted at a 45 degree angle until just above the periosteum. The providers selected agent (s)/medications (as documented in this note) were injected on the left side (directing needle to center, left and right of painful focus any fanning technique). Pressure with gauze pad was held briefly upon the site of puncture to minimize bleeding and to further spread anesthetic subcutaneously. The procedure was repeated on the right side. The patient was monitored for 15 minutes after the procedure and no complications were observed. Post procedure care was reviewed with the patient including application of ice intermittently to the injection sites over the course of the day to reduce inflammation. CPT: 48487-Uymkklz Occipital Procedure code (CPT) selection complete Therapeutic Injection Therapeutic Injection Details: Trigger point injection procedure: Laterally:Bilateral Indications: Chronic headaches, myofascial pain Following universal hygiene protocol, after explaining the risks and benefits as well as hazards of the procedure to the patient, consent was signed and placed in the chart. Time-out prior to starting the procedure was performed. The areas over the bilateral trapezius muscles were cleansed with alcohol. 1 Sites in each trapezius muscle injected with a 27 gauge 1.5 in needle with myofascial spasm. Patient tolerated the procedure well, localized bleeding was controlled. Patient monitored in the clinic for 15 minutes for complications. Patient was discharged home with instructions to apply ice to the back of their head as needed. 97449-[id number] Point Injection 1 or 2 sites All charges added?: Procedure code (CPT) selection complete Office Meds bupivacaine (PF) 0.5 % (5 mg/mL) injection solution Performing Provider: Svitlana Fajardo CNP Performing Location: [facility] [facility] Administered by: Svitlana Fajardo CNP on 04/25/25 14:42 Dose Route Admin Location Dispensed Lot Number Expiration Date [facility] [employer] 4 mL Infiltration 10 mL [id number] ([employer]) Total Dispensed Waste 10 mL 60 % bupivacaine (PF) 0.5 % (5 mg/mL) injection solution Performing Provider: Svitlana Fajardo CNP Performing Location: [facility] [place] [facility] Administered by: Svitlana Fajardo CNP on 04/25/25 14:42 Dose Route Admin Location Dispensed Lot Number Expiration Date [facility] [employer] 4 mL Infiltration 10 mL [id number] ([employer]) Total Dispensed Waste 10 mL 60 % Assessment & Plan Assessment & Plan (1) Cervicogenic headache: Code(s): G44.86 - Cervicogenic headache Category: Medical (2) Trigger point of shoulder region: Code(s): M25.519 - Pain in unspecified shoulder Category: Medical (3) Myofascial pain: Code(s): M79.18 - Myalgia, other site Category: Medical Plan Saima is a 74 year old female patient with a past medical history of anemia, hypertension, and constipation who is here today for a follow-up visit. Headache patterns and characteristics are consistent with cervicogenic headache with likely right occipital neuralgia. She has an extensive degree of neck pain and has difficulty moving without any precipitation of extreme shooting pains especially to the right side. At the time of her last visit, we reviewed some options in depth including oral therapies such as oral steroids or muscle relaxers which would likely provide some of the past benefit. Unfortunately with her extensive allergy history and sensitivity to medications, she has a lot of reluctant see to try any oral therapies. We discussed alternative options including topical agents, physical therapy, heat therapy, as well as trigger point and occipital nerve blocks. I sent for diclofenac gel and lidocaine patches at that time and also referred her to physical therapy. Today she decided to move forward with the occipital nerve blocks and trigger point injections will be performed in office today without any complications. I will have her continue the topical diclofenac gel and I will resubmit for physical therapy and lidocaine patches as planned originally. -trigger points performed in office today -continue topical diclofenac gel for occipital and tripezius areas and myofacial pain -resubmit lidocaine patches for the 4% as the 5% was not approved -send another order for physical therapy -may need to consider botox therapy for tortacollis -follow up in 4 weeks or sooner if needed Orders: Orders AMB Trigger Point Injection Today G44.86 - Cervicogenic headache, M25.519 - Pain in unspecified shoulder, M79.18 - Myalgia, other site AMB Nerve Block Today G44.86 - Cervicogenic headache, M25.519 - Pain in uns pecified shoulder, M79.18 - Myalgia, other site Medications: New lidocaine 4% 1 patch topical DAILY PRN 30 ea 5RF pain Discontinued lidocaine 5% leave on most painful area for up to 12 hrs Discontinued Reason: Doctor's Order 1 patch topical DAILY 30 days PRN 30 ea 5RF neck pain Coding Level of Care Code Est Pt Level 4 (06526) Diagnoses Cervicogenic headache G44.86 Trigger point of shoulder region M25.519 Myofascial pain M79.18 CPT Codes Nerve Block - CPT: 69172-Zqbuexm Occipital ([id number]) Therapeutic Injection - Ther Injection 1: 25058-[id number] Point Injection 1 or 2 sites ([id number])
[2025-04-25 13:32] VITALS: BP 150/65; PULSE 87; RESP 16; O2SAT 98; BMI 39.7
--- OUTSIDE RECORDS SUMMARY | 2025-04-25 18:03 | XMS_ITS | Data Portability ---
Author Organization [facility], [facility] Address [address] [place] [address] Care Team Providers Care Director Teen Post Name Role Phone LEVAR DAVIS Referring Provider [phone] LEVAR DAVIS Primary Care Provider [phone] Assessment Encounter Date Assessment Date Assessment LastModified by Organization Details LastModified Time 10/15/2024 10/15/2024 Assessment: Pt demonstrates small gains when doing AAROM with PT, versus PROM, Increased flexion, but pain at end range. 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 [email or web address] Not available 10/20/2024 10:47:35 10/22/2024 10/22/2024 Assessment: [...] Pain of right shoulder region Active 2023 [facility] 4 10:14:14 Rotator cuff arthropathy of right shoulder [id number] Active 2023 [facility] 4 10:46:41 Problem Notes None recorded. Procedures Surgical History Date Name Laterality Status Provider Name and Address Organization Details Recorded Time 5 80312 Therapeutic Exercise (1:1) completed Esvin Kowalski, PT [address], [place], [address], [facility] 11/02/2024 07:54:02 5 88727: Manual therapy completed Esvin Kowalski, PT [address], [place], [address], [facility] 11/02/2024 07:54:02 5 90347 Therapeutic Exercise (1:1) cancelled Esvin Kowalski, PT [address], [place], [address], [facility] 10/27/2024 17:30:43 5 00704: Manual therapy cancelled Esvin Kowalski, PT [address], [place], [address], [facility] 10/27/2024 17:30:43 5 98665 Therapeutic Exercise (1:1) completed Esvin Kowalski, PT [address], [place], [address], [facility] 10/26/2024 09:52:13 5 40099: Manual therapy completed Esvin Kowalski, PT [address], [place], [address], [facility] 10/26/2024 09:52:13 5 84084 Therapeutic Exercise (1:1) completed Esvin Kowalski, PT [address], [place], [address], [facility] 10/25/2024 18:30:41 87866: Manual therapy completed Esvin Kowalski, PT [address], [place], [address], [facility] 10/21/2024 13:47:27 5 27950 Therapeutic Exercise (1:1) completed Neda Chavez, [employer] EQUIPMENT OPERATOR [address], [place], [address], [facility] 10/20/2024 10:46:52 5 01342: Manual therapy completed Neda Chavez [employer] REFINING EQUIPMENT OPERATOR [address], [place], [address], [facility] 10/20/2024 10:46:49 75637 Therapeutic Exercise (1:1) completed Neda Chavez [employer] REFINING EQUIPMENT OPERATOR [address], [place], [address], [facility] 10/14/2024 20:06:26 26613: Manual therapy completed Neda Chavez [employer] REFINING EQUIPMENT OPERATOR [address], [place], [address], [facility] 10/15/2024 14:10:07 5 56873 Therapeutic Exercise (1:1) completed Esvin Kowalski, PT [address], [place], [address], [facility] 10/12/2024 05:34:12 5 64180: Manual therapy completed Esvin Kowalski, PT [address], [place], [address], [facility] 10/12/2024 05:34:12 5 96488 Therapeutic Exercise (1:1) completed Esvin Kowalski, PT [address], [place], [address], [facility] 10/06/2024 09:58:06 5 45803: Manual therapy completed Esvin Kowalski, PT [address], [place], [address], [facility] 10/06/2024 09:57:59 44300 Therapeutic Exercise (1:1) completed Esvin Kowalski, PT [address], [place], [address], [facility] 10/03/2024 18:11:05 5 79849: Manual therapy completed Esvin Kowalski, PT [address], [place], [address], [facility] 10/04/2024 14:41:06 5 30091 Therapeutic Exercise (1:1) completed Neda Chavez, [employer] REFINING EQUIPMENT OPERATOR [address], [place], [address], [facility] 09/29/2024 17:19:41 5 42514: Manual therapy completed Neda Chavez, [employer] REFINING EQUIPMENT OPERATOR [address], [place], [address], [facility] 09/29/2024 17:19:43 5 94536 Therapeutic Exercise (1:1) completed Esvin Kowalski, PT [address], [place], [address], [facility] 09/14/2024 07:52:23 51894: PT re-eval completed Esvin Kowalski, PT [address], [place], [address], [facility] 09/21/2024 15:02:08 5 G8417 BMI Above Upper Parameters, F/U Documented completed Esvin Kowalski, PT [address], [place], [address], [facility] 09/14/2024 15:30:46 5 G8427 Current Medication Documented completed Esvin Kowalski, PT [address], [place], [address], [facility] 09/14/2024 15:30:25 5 64276 Therapeutic Exercise (1:1) completed Neda Chavez, [employer] REFINING EQUIPMENT OPERATOR [address], [place], [address], [facility] 07/12/2024 17:33:43 5 56995: Manual therapy completed Neda Chavez, [employer] REFINING EQUIPMENT OPERATOR [address], [place], [address], [facility] 07/12/2024 17:33:43 5 94855 Therapeutic Exercise (1:1) cancelled Esvin Kowalski, PT [address], [place], [address], [facility] 07/08/2024 08:06:32 5 39839: Manual therapy cancelled Esvin Kowalski PT [address], [place], [address], [facility] 07/08/2024 08:06:32 5 47880 Therapeutic Exercise (1:1) completed Neda Chavez PTA [address], [place], [address], [facility] 06/30/2024 09:42:42 5 12883: Manual therapy completed Neda Chavez PTA [address], [place], [address], [facility] 06/30/2024 09:42:42 5 99560 Therapeutic Exercise (1:1) completed Esvin Kowalski, PT [address], [place], [address], [facility] 06/29/2024 07:53:32 5 35778: Manual therapy completed Esvin Kowalski, PT [address], [place], [address], [facility] 06/29/2024 07:53:32 5 09190 Therapeutic Exercise (1:1) completed Neda Chavez, [employer] REFINING EQUIPMENT OPERATOR [address], [place], [address], [facility] 06/23/2024 19:45:17 06050: Manual therapy completed Neda Chavez, [employer] REFINING EQUIPMENT OPERATOR [address], [place], [address], [facility] 06/23/2024 19:45:17 5 76901 Therapeutic Exercise (1:1) completed Neda Chavez, [employer] REFINING EQUIPMENT OPERATOR [address], [place], [address], [facility] 06/17/2024 14:46:45 35319: Manual therapy completed Neda Chavez, [employer] REFINING EQUIPMENT OPERATOR [address], [place], [address], [facility] 06/17/2024 14:46:54 15550 Therapeutic Exercise (1:1) completed Jona Monzon, PT [address], [place], [address], [facility] 06/14/2024 20:26:20 56288: Low complexity PT Eval completed Jona Laurenser, PT [address], [place], [address], [facility] 06/14/2024 20:26:09 Imaging Results None recorded. Procedure Notes None recorded. Medical Equipment None Reported. Allergies Allergen ID Allergen Name Allergen Category Reaction Reaction Severity Criticality Documentation Date Start Date Code Code System Note Provider Name and Address Organization Details Recorded Time 72170 Glycine max (substanc e) environme nt,food,m edication Not available Not available Not available 08/04/20232010 48763 5007 SNOMED Aller gyRea ction : 'Skin React ion'; Not Available [facility] 4 14:33:25 77367 Product containin g penicilli n (product) medicatio n Not available Not available Not available 08/04/20232010 24830 8001 SNOMED Aller gyRea ction : 'Skin React ion'; Not Available [facility] 4 14:33:26 08474 Norvasc medicatio n Not available Not available Not available 08/04/20232012 99119 RxNorm Not Available [facility] 4 14:33:26 24107 tramadol hydrochlo ride medicatio n Not available Not available Not available 08/04/20232022 66157 RxNorm Not Available [facility] 4 14:33:26 55802 acetamino phen / hydrocodo ne medicatio n Not available Not available Not available 08/04/20232012 05175 2 RxNorm Not Available [facility] 4 14:33:26 75675 latex environme nt,medica tion Not available Not available Not available 08/04/20232012 94262 91 RxNorm Not Available [facility] 4 14:33:26 Medications Name Sig Start [...] ICD10 Code Diagnosis IMO Codes Diagnosis Note [id number] AMANDEEP Malave [address] [place] [address] 08/15/2023 14:49:00 09/06/2023 06:19:27 Knee joint prosthesis present 8072416438 02 Z96.651 Hip joint prosthesis present 973892753 Z96.101 9248258 AMANDEEP Malave [address] [place] [address] 04/07/2024 09:48:14 05/05/2024 09:16:08 Pain of right shoulder region 0713631540 M25.511 66072554 Rotator cu ff arthropathy of right shoulder 7326327759 3027449 M12.811 1622587961 [id number] Jona Monzon, PT [facility] [address] [place] [address] 06/15/2024 10:24:52 06/15/2024 11:59:38 Rotator cuff arthropathy of right shoulder 0691894751 9333641 M12.811 3416787480 [id number] Neda Chavez, [employer] EQUIPMENT OPERATOR [facility] [address] [place] [address] 06/17/2024 13:22:55 06/17/2024 14:23:59 Rotator cuff arthropathy of right shoulder 3753130314 0692148 M12.811 0903271487 [id number] Neda Chavez, [employer]ING EQUIPMENT OPERATOR [facility] [address] [place] [address] 06/24/2024 12:39:51 06/24/2024 13:34:01 Rotator cuff arthropathy of right shoulder 3412280965 8207642 M12.811 8864308037 [id number] Esvin Kowalski, PT [facility] [address] [place] [address] 06/29/2024 09:40:25 06/29/2024 10:19:10 Rotator cuff arthropathy of right shoulder 7624137279 9460666 M12.811 2310411475 [id number] Neda Chavez, [employer] REFINING EQUIPMENT OPERATOR [facility] [address] [place] [address] 07/01/2024 10:37:42 07/01/2024 11:44:44 Rotator cuff arthropathy of right shoulder 4385144321 5628444 M12.811 2840262524 [id number] Neda Chavez, [employer]FINING EQUIPMENT OPERATOR [facility] [address] [place] [address] 07/13/2024 10:09:05 07/13/2024 11:51:18 Rotator cuff arthropathy of right shoulder 9733076827 0600763 M12.811 1653776202 [id number] Esvin Kowalski, PT [facility] [address] [place] [address] 09/14/2024 15:10:44 09/14/2024 16:58:04 Rotator cuff arthropathy of right shoulder 2930982910 0086253 2.811 5630427926 [id number] Neda Chavez, [employer]FINING EQUIPMENT OPERATOR [facility] [address] [place] [address] 09/29/2024 16:24:56 09/29/2024 17:16:22 Rotator cuff arthropathy of right shoulder 8822748930 9840357 2.811 8713804189 [id number] Esvin Kowalski, PT [facility] [address] [place] [address] 10/04/2024 13:31:36 10/04/2024 15:01:18 Rotator cuff arthropathy of right shoulder 2934219521 1419891 2.811 8818340652 [id number] Esvin Kowalski, PT [facility] [address] [place] [address] 10/06/2024 08:56:57 10/06/2024 11:09:52 Rotator cuff arthropathy of right shoulder 7816736183 9723380 2.811 5533261303 [id number] Esvin Kowalski, PT [facility] [address] [place] [address] 10/12/2024 14:43:10 10/12/2024 17:34:29 Rotator cuff arthropathy of right shoulder 3441523369 2534090 2.811 8559908034 [id number] Neda Chavez, [employer] RE[employer]ING EQUIPMENT OPERATOR [facility] [address] [place] [address] 10/15/2024 13:19:04 10/15/2024 13:58:45 Rotator cuff arthropathy of right shoulder 8117461097 8501453 2.811 7019519763 [id number] Neda Chavez, [employer] REFINING EQUIPMENT OPERATOR [facility] [address] [place] [address] 10/20/2024 09:19:18 10/20/2024 10:06:41 Rotator cuff arthropathy of right shoulder 0632471704 3374131 M12.811 [id number] Esvin Kowalski, PT [facility] [address] [place] [address] 10/22/2024 09:16:17 10/22/2024 10:06:23 Rotator cuff arthropathy of right shoulder 6848310262 6964952 M12.811 6008390313 [id number] Esvin Kowalski, PT [facility] [address] [place] [address] 10/26/2024 14:09:01 10/26/2024 15:18:49 Rotator cuff arthropathy of right shoulder 6958412613 4295871 M12.811 0916254491 [id number] Esvin Kowalski, PT [facility] [address] [place] [address] 11/02/2024 13:58:52 11/02/2024 15:06:41 Rotator cuff arthropathy of right shoulder 9963279191 6255303 M12.811 [id number] Health Concerns Section Related Observation LastModified by Organization Detai ls LastModified Time None Recorded Concern Status LastModified by Organization Details LastModified Time None Recorded Advance Directives Directive None Recorded Payers Insurance Date Sequence Insurance Name Policy Number Policy Hart Covered Member ID Hart Member ID Guarantor Name 02/10/2025 2 [place] [facility] Saima Lucia [id number] Saima Lucia 10/31/2024 1 [employer] (MEDICARE REPLACEMENT/A DVANTAGE - PPO) [id number] Saima Lucia [id number] Saima Lucia Notes Date Note Type Note Provider Name and Address Organization Details Recorded Time 10/15/2024 text/html Pt states really sore today pain 7/10 both shoulders hurt and both knees are stiff. Neda Chavez, [employer] REFINING EQUIPMENT OPERATOR [address], [place], [address], [facility] 10/15/2024 14:10:42 10/20/2024 text/html Pt states shoulder about 6/10 today. Neda Chavez, [employer] REFINING EQUIPMENT OPERATOR [address], [place], [address], [facility] 10/20/2024 10:48:07 10/22/2024 text/html Pt states shoulder about 6/10 today. Esvin Kowalski, PT [address], [place], [address], [facility] 10/25/2024 18:31:56 10/26/2024 text/html Pt states shoulder about 6/10 today. Esvin Kowalski, PT [address], [place], [address], [facility] 10/26/2024 16:27:59 11/02/2024 text/html Pt states shoulder about 5/10 today. Esvin Kowalski, PT [address], [place], [address], [facility] 11/03/2024 04:50:55 OBGyn Episode No OBEpisode recorded.
== END 2025-04-25 14:31 | disposition home or self-care (01) ==
LOC: HO.HSM 13:24
PROVIDERS: PCP Internal Medicine; Visit Provider Nurse Practitioner
DX: M79.18 Myalgia, other site (principal); M25.519 Pain in unspecified shoulder; G44.86 Cervicogenic headache
CPT/HCPCS: 20552; 64405; 99214

== ENCOUNTER → 2025-04-25 13:24 | Outpatient (BNVA) | payer MEDICARE, MEDICAID, SELFPAY | PROVIDERS: PCP Internal Medicine; Visit Provider Nurse Practitioner | DX: G44.86 Cervicogenic headache (principal); M25.512 Pain in left shoulder; M25.511 Pain in right shoulder; M79.18 Myalgia, other site; Z79.899 Other long term (current) drug therapy | CPT/HCPCS: 20552; 64405; 99212; J0665 ==